=== PATIENT | male | born 1955 | race Caucasian/White ===

== ENCOUNTER 2016-12-14 05:46 | Inpatient (IN) ==
[2016-12-14] MEDS ORDERED: methylPREDNISolone 125 MG/2 ML VIAL IVP ONE (05:49)
[2016-12-14] MEDS ORDERED: Ipratropium/Albuterol Neb 3 ML IH ONE ×2 (05:51→11:01)
[2016-12-14] MEDS ORDERED: Nitroglycerin 0.4 MG TAB.SUBL SL ONE (05:52)
[2016-12-14] MEDS ORDERED: Ipratropium/Albuterol Neb 3 ML ONE ×2 (05:56→10:56)
[2016-12-14] MEDS ORDERED: Nitroglycerin 0.4 MG TAB.SUBL SL PRN (06:16)
--- NOTE | 2016-12-14 06:33 | Emergency Department Note ---
Disposition Clinical Impression: Shortness of breath, Wheezing, Viral syndrome Disposition: Still a Patient Condition: Good Referrals: NO,PCP [Primary Care Provider] - Forms: ED Satisfaction Letter SOB HPI - General Chief Complaint: ED Shortness of Breath/Dyspnea Stated Complaint: JAZZ Time Seen by Provider: 12/14/16 05:49 Source: patient, EMS Mode of arrival: EMS Limitations: no limitations Nursing Notes Reviewed: Yes Vital Signs Reviewed: Yes - History of Present Illness Patient presents emergency room for evaluation of viral prodrome that is resulted in increased work of breathing today. Patient fell he could not breathe at home and called the squad. While walking down to the area is to be taken to the hospital patient acutely had shortness of breath or wheezing. He has no history of asthma or COPD according to him. He does not use oxygen or inhalers at home. Patient denies chest pain fevers chills headache vision changes nausea vomiting or diarrhea. 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 Constitutional: Denies: fever, weakness Cardiovascular: Reports: dyspnea on exertion. Denies: chest pain, palpitations , orthopnea, edema Respiratory: Reports: cough, dyspnea, wheezes Gastrointestinal: Denies: nausea, vomiting, diarrhea Musculoskeletal: Denies: back pain, neck pain Neurological: Denies: headache Past Medical History - Past Medical History Attestation: Yes The following information was validated with the patient. Source: patient Medical history: Reports: hypertension, other Psychiatric history: Reports: no psych history - Social History Smoking Status: Current every day smoker Smokeless Tobacco Status: No Alcohol use: Reports: none Drug use: Reports: none Physical Exam - General Limitations: no limitations General appearance: alert, in distress - Chest Chest inspection: Present: normal inspection, symmetric chest wall rise. Absent : tenderness - Respiratory Respiratory exam: Present: respiratory distress, wheezes. Absent: stridor, accessory muscle use - Cardiovascular Cardiovascular exam: Present: normal rhythm, tachycardia, normal heart sounds - Abdominal Exam Abdominal exam: Present: soft, Non-Tender. Absent: tenderness, distention, guarding, rebound, rigidity, Fall's sign, Rovsing's sign, tenderness at McBurney's Point, pulsatile mass, hernia - Extremities Exam Extremities exam: Present: normal inspection, full ROM. Absent: tenderness, pedal edema, calf tenderness - Back Exam Back exam: Present: normal inspection, full ROM. Absent: tenderness - Neurological Exam Neurological exam: Present: alert, oriented X3, CN II-XII intact, normal gait - Psychiatric Psychiatric exam: Present: normal affect, normal mood - Skin Skin exam: Present: warm, dry, intact, normal color Course Course Narrative: Patient seen and examined the time of arrival. See history of present illness. 61-year-old male presents emergency room for acute onset of shortness of breath. He was at home this morning when he started to feel like he cannot breathe. He has had a viral URI like symptoms over the last 1 week. He has no history of COPD or emphysema. He does not use inhalers at home. He does smoke. Patient said that he got home from work tonight was eating at home and then started to feel like he could not breathe. He called EMS who brought emergency room. Currently he is denying chest pain fevers chills nausea vomiting or diarrhea. Denying headache or vision changes. Complaint of shortness of breath and wheezing. Patient was put on oxygen providing with 2 nebulized breathing treatments and transit through the emergency room. Physical exam shows coarse bilateral wheezing on inspiration and expiration. Trachea is midline. Lungs otherwise normal. Heart is regular but tachycardic. Abdomen soft nontender nondistended. No pulsatile areas. Patient was also extremity is without any acute difficulty. Patient is stable. Patient has what appears to be either acute exacerbation of undiagnosed COPD, reactive airway disease, or pneumonia. EKG chest x-ray troponin treatment course including steroids and albuterol be provided on BiPAP. Patient's blood pressure was elevated and transit but is 150/90 here. Patient does not have any acute signs of pulmonary edema based on my evaluation. Continue to monitor his workup and treatment course are completed. Patient disposition undetermined once symptoms have been controlled. - Reevaluation(s) Reevaluation #1: Patient's breathing is more stable on the BiPAP and breathing treatments. He does have diffuse wheezing now that his last course after treatment regimen. Patient will be signed out to the daytime physicians to complete the treatment course initially the patient either stabilizes is capable of going home or prior to admission. Detailed presentation symptoms were discussed with the oncoming physician Dr. Christie. Recommendations and concerns were discussed in detail. They will complete the patient's course of care medical management. Time: 06:42 Vital Signs Temperature 97.9 F 12/14/16 05:48 Pulse Rate 114 12/14/16 05:48 Respiratory Rate 32 12/14/16 05:48 Blood Pressure 151/102 12/14/16 05:48 O2 Sat by Pulse Oximetry 98 12/14/16 05:48 Temperature 97.9 F 12/14/16 05:48 Pulse Rate 114 12/14/16 05:48 Respiratory Rate 24 12/14/16 06:03 Blood Pressure 151/102 12/14/16 05:48 O2 Sat by Pulse Oximetry 98 12/14/16 06:03 Oxygen Delivery Oxygen Delivery Non Rebreather Mask Shortness of Breath/Dyspnea - MDM Narrative Medical decision making narrative: Acute respiratory distress, inspiratory wheezing, - Medical Records Medical records reviewed: Yes I reviewed the patient's medical records. - Lab Data Lab results reviewed: Yes I reviewed the patient's lab results. - Radiology Data Radiology results reviewed: Yes I reviewed the patient's radiology results. Chest x-ray is negative for acute infiltrative pathology reviewed by myself and confirmed by the radiologist - EKG Data EKG attestation: Yes I reviewed and interpreted this EKG. EKG shows normal: Reports: sinus rhythm Rate: Reports: tachycardia Rhythm: Reports: NSR [place]/QRS: Reports: normal Voltage: Reports: c/w atrial hypertrophy When compared to previous EKG there are: no significant changes Interpretation: Reports: no acute changes, unchanged when compared to prior tracing (date) (01/06/09) Attestation Statement - Attestation Attestation: Dr Reynoso note: Pt seen in conjunction w/ resident Dr Pulliam; please see his charting for complete documentation; I spent face to face time w/ the pt and agree w/ the pt and agree w the pt's treatment and disposition; patient has had prodromal upper respiratory symptoms for a week. 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
[2016-12-14 07:06] LABS: BUN/Creatinine Ratio 16 (6-26); Blood Urea Nitrogen 16 mg/dL (8-26); Calcium 8.2 mg/dL (8.6-10.8); Carbon Dioxide 23 mEq/L (19-29); Chloride 109 mEq/L (98-109); Glucose 133 mg/dL (70-99); Osmolality,Calculated 293 (280-300); Potassium 3.6 mEq/L (3.5-4.5); Sodium 140 mEq/L (136-145); eGFR For African Americans > 60 (> 60); eGFR For Non-African Americans > 60 (> 60)
--- NOTE | 2016-12-14 07:19 | Emergency Department Note ---
Disposition Clinical Impression: Shortness of breath, Wheezing, Viral syndrome, Hypoxia Pulmonary edema Qualifiers: Chronicity: acute Qualified Code(s): J81.0 - Acute pulmonary edema Disposition: Admitted As Inpatient Condition: Good Referrals: NO,PCP [Primary Care Provider] - Forms: ED Satisfaction Letter Time of Disposition: 08:30 SOB HPI - General Chief Complaint: ED Shortness of Breath/Dyspnea Stated Complaint: JAZZ Time Seen by Provider: 12/14/16 05:49 Source: patient, EMS Mode of arrival: EMS Limitations: no limitations Nursing Notes Reviewed: Yes Vital Signs Reviewed: Yes - History of Present Illness Patient is a 61-year-old male with past medical history of hypertension. 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 Reynoso and Dr. Pulliam. Patient has had URI symptoms of runny nose and cough for the past week. Last night, he began having sudden onset shortness of breath. Patient denies any chest pain during this episode. He denies any history of asthma, COPD, he has never had anything like this in the past. Denies any fevers, nausea, vomiting, abdominal pain, headache, vision changes, numbness, tingling, weakness. Patient states that when he was picked up by EMS, he was satting in the upper 80s to low 90s without oxygen. He is placed on oxygen and his saturation went up to 95%. Severity: moderate Worsens with: lying flat, exertion Associated symptoms: Reports: cough, wheezing Treatment prior to arrival: oxygen, bronchodilator - Related Data Previous Rx's Medication Instructions Recorded MethylPREDNISolone [Medrol] 4 mg PO TAPER #21 tablet 09/07/16 Allergies Allergy/AdvReac Type Severity Reaction Status Date / Time No Known Allergies Allergy Verified 09/07/16 12:05 Constitutional: Denies: fever, weakness Cardiovascular: Reports: dyspnea on exertion. Denies: chest pain, palpitations , orthopnea, edema Respiratory: Reports: cough, dyspnea, wheezes Gastrointestinal: Denies: nausea, vomiting, diarrhea Musculoskeletal: Denies: back pain, neck pain Neurological: Denies: headache Past Medical History - Past Medical History Attestation: Yes The following information was validated with the patient. Medical history: Reports: hypertension, other Psychiatric history: Reports: no psych history - Social History Smoking Status: Current every day smoker Smokeless Tobacco Status: No Alcohol use: Reports: none Drug use: Reports: none Physical Exam - General Limitations: no limitations General appearance: alert, in distress - Head Head exam: atraumatic, normocephalic, normal inspection - Eye Eye exam: Present: normal appearance, PERRL, EOMI - ENT ENT exam: normal exam, mucous membranes moist - Neck Neck exam: Present: normal inspection, full ROM, trachea midline - Respiratory Respiratory exam: Present: wheezes (Moderate wheezes throughout, mild crackles in bilateral lower lobes.) - Cardiovascular Cardiovascular exam: Present: normal rhythm, tachycardia, normal heart sounds - Abdominal Exam Abdominal exam: Present: soft, Non-Tender. Absent: tenderness, distention, guarding, rebound, rigidity - Extremities Exam Extremities exam: Present: normal inspection, other (moves all extremities spontaneously). Absent: tenderness, pedal edema - Neurological Exam Neurological exam: Present: alert, oriented X3 - Psychiatric Psychiatric exam: Present: normal affect, normal mood - Skin Skin exam: Present: warm, dry, intact, normal color Course Course Narrative: Blood pressure is now 150s over 80s. Patient was given 2 albuterol treatments by EMS on the way in, is also given 3 duonebs by DVT. He was also given Solu- Medrol 125 mg. Patient is currently on BiPAP. Patient states that his breathing has significantly improved, however, he still has moderate wheezes throughout his lung calle. Chest x-ray shows pulmonary edema. He states he has no known history of CHF, CAD, stents, [place]. BNP elevated at 256. The rest of the BMP is not concerning. Currently waiting on CBC, troponin level. EKG shows sinus tachycardia with no acute ST elevation or depression. 08:25 Patient reassessed. He is resting comfortably on BIPAP. CXR showed pulm edema, elevated BNP at 256 (no previous values for comparison). Will start nitro drip at 30mcg. Discussed admission with patient, and he was agreeable. Will admit patient for further workup of suspected new onset CHF, pulm edema, hypoxia. 08:[address] Lawrence. He has accepted for admission but did not want nitro drip started. He wanted lasix ordered but Dr. Christie did not recommend this at this time. Will give nitro paste and admit. Chest X-Ray 12/14/16 05:49 IMPRESSION: Pulmonary edema. D/ / Derrick Gonzalez MD / Derrick Gonzalez MD Interpreting Provider: Derrick Gonzalez MD Vital Signs Temperature 97.9 F 12/14/16 05:48 Pulse Rate 114 12/14/16 05:48 Respiratory Rate 32 12/14/16 05:48 Blood Pressure 151/102 12/14/16 05:48 O2 Sat by Pulse Oximetry 98 12/14/16 05:48 Temperature 97.9 F 12/14/16 05:48 Pulse Rate 92 12/14/16 07:59 Respiratory Rate 20 12/14/16 07:59 Blood Pressure 130/91 12/14/16 07:59 O2 Sat by Pulse Oximetry 100 12/14/16 07:59 Oxygen Delivery Oxygen Delivery Bipap Shortness of Breath/Dyspnea - MDM Narrative Medical decision making narrative: No Pmhx of CHF. on BIPAP. CXR showed pulm edema, elevated BNP at 256 (no previous values for comparison). Nitro paste started. Discussed admission with patient, and he was agreeable. Will admit patient for further workup of suspected new onset CHF, pulm edema, hypoxia. - Medical Records Medical records reviewed: Yes I reviewed the patient's medical records. - Lab Data Lab results reviewed: Yes I reviewed the patient's lab results. Result diagrams: 12/14/16 06:47 12/14/16 06:47 Lab Results 12/14/16 12/14/16 12/14/16 Range/Units 06:47 06:47 06:47 WBC 8.7 (4.3-11.1) K/mcL RBC 5.01 (4.19-5.50) M/mcL Hgb 14.8 (12.9-16.9) g/dL Hct 45.4 (37.5-50.1) % MCV 90.6 (83.0-100.0) fL MCH 29.5 (28.0-33.3) pg MCHC 32.6 (31.6-35.5) g/dL RDW 14.5 (11.5-14.5) % Plt Count 186 (140-400) K/mcL MPV 11.0 (9.4-12.4) fL Immature Gran % 0.8 (0-4) % Seg Neutrophils % 76.4 % Lymphocytes % 11.8 % Monocytes % 9.1 % Eosinophils % 1.4 % Basophils % 0.5 % Neutrophils # 6.7 (1.6-8.9) K/mcL Lymphocytes # 1.0 (0.6-4.6) K/mcL Monocytes # 0.8 (0.0-1.3) K/mcL Eosinophils # 0.1 (0.0-0.6) K/mcL Basophils # 0.0 (0.0-0.2) K/mcL Sodium 140 (136-145) mEq/L Potassium 3.6 (3.5-4.5) mEq/L Chloride 109 (98-109) mEq/L Carbon Dioxide 23 (19-29) mEq/L BUN 16 (8-26) mg/dL Creatinine 1.02 (0.72-1.25) mg/dL Est GFR ( Amer) > 60 (> 60) Est GFR (Non-Af Amer) > 60 (> 60) BUN/Creatinine Ratio 16 (6-26) Glucose 133 H (70-99) mg/dL Calculated Osmolality 293 (280-300) Calcium 8.2 L (8.6-10.8) mg/dL Troponin I 0.02 (0-0.03) ng/mL B-Natriuretic Peptide (0-100) pg/mL 12/14/16 Range/Units 06:47 WBC (4.3-11.1) K/mcL RBC (4.19-5.50) M/mcL Hgb (12.9-16.9) g/dL Hct (37.5-50.1) % MCV (83.0-100.0) fL MCH (28.0-33.3) pg MCHC (31.6-35.5) g/dL RDW (11.5-14.5) % Plt Count (140-400) K/mcL MPV (9.4-12.4) fL Immature Gran % (0-4) % Seg Neutrophils % % Lymphocytes % % Monocytes % % Eosinophils % % Basophils % % Neutrophils # (1.6-8.9) K/mcL Lymphocytes # (0.6-4.6) K/mcL Monocytes # (0.0-1.3) K/mcL Eosinophils # (0.0-0.6) K/mcL Basophils # (0.0-0.2) K/mcL Sodium (136-145) mEq/L Potassium (3.5-4.5) mEq/L Chloride (98-109) mEq/L Carbon Dioxide (19-29) mEq/L BUN (8-26) mg/dL Creatinine (0.72-1.25) mg/dL Est GFR ( Amer) (> 60) Est GFR (Non-Af Amer) (> 60) BUN/Creatinine Ratio (6-26) Glucose (70-99) mg/dL Calculated Osmolality (280-300) Calcium (8.6-10.8) mg/dL Troponin I (0-0.03) ng/mL B-Natriuretic Peptide 256 H (0-100) pg/mL - Radiology Data Radiology results reviewed: Yes I reviewed the patient's radiology results. Chest X-Ray 12/14/16 05:49 IMPRESSION: Pulmonary edema. D/ / Derrick Gonzalez MD / Derrick Gonzalez MD Interpreting Provider: Derrick Gonzalez MD - EKG Data EKG attestation: Yes I reviewed and interpreted this EKG. EKG results narrative: 12/14/2016 05:53 Sinus tachycardia, rate 113, QTC 419, QRS 106. Left axis deviation. No acute ST elevation or depression. No acute changes from previous EKG on 01/06/2009 [facility] - [facility] Situation: Demographics, MOA Background: Presenting Complaint, Relevant PMH, Meds, & Allergies Assessment: Vital Signs, Course and respsone to treatment, Exam Concerns, Patient/Family Expectation, Pertinant Lab Results, Outstanding Labs Recommendation: Barrier(s) to disposition, Recommendation based on pending studies, treatments, or consults [facility] Report Given to: Dr. Melinda Ron Repor Time: 08:30 Attestation Statement - Attestation Attestation: I examined this patient and my medical decision-making was reviewed with the Resident Physician. I agree with the documented findings, disposition and treatment plan as described except to the extent set forth below. Initial assessment by overnight team was at the patient likely had a COPD exacerbation. However, diagnostics suggest new onset pulmonary edema. Patient is called what this point on BiPAP. We had ordered low-dose IV nitroglycerin for preload reduction, but the hospitalist did not want this started. Nitroglycerin paste was placed instead. He has given an order for Lasix, although, as we discussed, in my judgment the patient does not seem to be whole- body volume overloaded.
[2016-12-14 07:40] LABS: Basophils % 0.5 %; Eosinophils # 0.1 K/mcL (0.0-0.6); Eosinophils % 1.4 %; Hematocrit 45.4 % (37.5-50.1); Hemoglobin 14.8 g/dL (12.9-16.9); Immature Granulocytes % 0.8 % (0-4); Lymphocytes % 11.8 %; Mean Corpuscular HGB Conc 32.6 g/dL (31.6-35.5); Mean Corpuscular Hemoglobin 29.5 pg (28.0-33.3); Mean Corpuscular Volume 90.6 fL (83.0-100.0); Monocytes # 0.8 K/mcL (0.0-1.3); Monocytes % 9.1 %; Neutrophils # 6.7 K/mcL (1.6-8.9); Platelet Count 186 K/mcL (140-400); Red Blood Count 5.01 M/mcL (4.19-5.50); Red Cell Distribution Width 14.5 % (11.5-14.5); Segmented Neutrophils % 76.4 %
[2016-12-14] MEDS ORDERED: Azithromycin 500 MG in D5% in Water 250 ML IVPB ONE (08:43)
[2016-12-14] MEDS ORDERED: Furosemide 40 MG/4 ML VIAL IVP ONE (09:11)
[2016-12-14] MEDS ORDERED: *HR* HYDROcodone/Acet 5/325 mg TABLET PO PRN (12:35)
[2016-12-14] MEDS ORDERED: Naloxone 0.4 MG/ML INJ IVP PRN (12:35)
[2016-12-14] MEDS ORDERED: Acetaminophen 325 MG TABLET PO PRN (12:35)
[2016-12-14] MEDS ORDERED: Ondansetron 4 MG/2 ML VIAL IVP PRN (12:35)
[2016-12-14 14:41] LABS: Thyroid Stimulating Hormone 1.061 mcIU/mL (0.350-4.840)
[2016-12-14] MEDS: Albuterol 2.5 MG/3 ML NEBULIZER IH SCH (16:24)
--- NOTE | 2016-12-14 17:23 | Internal Med History&Physical ---
Date of Encounter: 12/14/16 Time of Encounter: 10:10 Internal Medicine - H&P: HPI Chief complaint: Shortness of breath x 1 day, cough x 7 days Admitted From: Emergency Dept Plans for Post Hospital Care: Home History of present illness: Mr. Champion is a 61 year old male with medical history significant for HTN ( loss to follow-up) brought in by EMS, he presents with difficulty breathing x 1 day. There as a prodrome of coughing the past week, no chest pain,no fever, chills or rigors, no nausea, vomiting or diarrhea, no. No sick contacts. He does not have a history of asthma/copd, he is not oxygen-dependent, he smokes tobacco. No history of use of bronchodilators. He was hypoxic in transit, as well as when he arrived the ED (82-89%), BiPAP provided, he received 2 rounds of Duonebs with improvement in oxygenation. He reports SOB, GUEVARA and PND, the past day. These are very new symptoms. No leg swelling. Cough is dry, intermittently produces clear mucous. He is FULL CODE as per discussion. He nominates his mother (Toshia Calderón, ) as his NOK/POA. Family history: He reports no family hx ROS: A 10-point ROS was performed, positives and negative systm-symptoms are mentioned above, items not mentioned are cassumed negative unless otherwise stated. Vital Signs Temperature 97.9 F 12/14/16 05:48 Pulse Rate 114 12/14/16 05:48 Respiratory Rate 32 12/14/16 05:48 Blood Pressure 151/102 12/14/16 05:48 O2 Sat by Pulse Oximetry 98 12/14/16 05:48 Temperature 97.9 F 12/14/16 05:48 Pulse Rate 114 12/14/16 05:48 Respiratory Rate 24 12/14/16 06:03 Blood Pressure 151/102 12/14/16 05:48 O2 Sat by Pulse Oximetry 98 12/14/16 06:03 Not in distress, not ill, non-toxic looking, Not pale, anicteric, afebrile, acyanotic. Moist mucosa. HEENT: No JVD, no cervical lymphadenopathy, Chest : Widespread wheezing, especially in the lung bases. Heart: RRR, HS1/2, no m/r/g. 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 Skin: No active skin lesion Extremities: No pedal edema, normal pedal pulses, no calf tenderness Lab Results 12/14/16 12/14/16 12/14/16 Range/Units 06:47 06:47 06:47 WBC 8.7 (4.3-11.1) K/mcL RBC 5.01 (4.19-5.50) M/mcL Hgb 14.8 (12.9-16.9) g/dL Hct 45.4 (37.5-50.1) % MCV 90.6 (83.0-100.0) fL MCH 29.5 (28.0-33.3) pg MCHC 32.6 (31.6-35.5) g/dL RDW 14.5 (11.5-14.5) % Plt Count 186 (140-400) K/mcL MPV 11.0 (9.4-12.4) fL Immature Gran % 0.8 (0-4) % Seg Neutrophils % 76.4 % Lymphocytes % 11.8 % Monocytes % 9.1 % Eosinophils % 1.4 % Basophils % 0.5 % Neutrophils # 6.7 (1.6-8.9) K/mcL Lymphocytes # 1.0 (0.6-4.6) K/mcL Monocytes # 0.8 (0.0-1.3) K/mcL Eosinophils # 0.1 (0.0-0.6) K/mcL Basophils # 0.0 (0.0-0.2) K/mcL Sodium 140 (136-145) mEq/L Potassium 3.6 (3.5-4.5) mEq/L Chloride 109 (98-109) mEq/L Carbon Dioxide 23 (19-29) mEq/L BUN 16 (8-26) mg/dL Creatinine 1.02 (0.72-1.25) mg/dL Est GFR ( Amer) > 60 (> 60) Est GFR (Non-Af Amer) > 60 (> 60) BUN/Creatinine Ratio 16 (6-26) Glucose 133 H (70-99) mg/dL Calculated Osmolality 293 (280-300) Calcium 8.2 L (8.6-10.8) mg/dL Troponin I 0.02 (0-0.03) ng/mL B-Natriuretic Peptide (0-100) pg/mL 12/14/16 Range/Units 06:47 WBC (4.3-11.1) K/mcL RBC (4.19-5.50) M/mcL Hgb (12.9-16.9) g/dL Hct (37.5-50.1) % MCV (83.0-100.0) fL MCH (28.0-33.3) pg MCHC (31.6-35.5) g/dL RDW (11.5-14.5) % Plt Count (140-400) K/mcL MPV (9.4-12.4) fL Immature Gran % (0-4) % Seg Neutrophils % % Lymphocytes % % Monocytes % % Eosinophils % % Basophils % % Neutrophils # (1.6-8.9) K/mcL Lymphocytes # (0.6-4.6) K/mcL Monocytes # (0.0-1.3) K/mcL Eosinophils # (0.0-0.6) K/mcL Basophils # (0.0-0.2) K/mcL Sodium (136-145) mEq/L Potassium (3.5-4.5) mEq/L Chloride (98-109) mEq/L Carbon Dioxide (19-29) mEq/L BUN (8-26) mg/dL Creatinine (0.72-1.25) mg/dL Est GFR ( Amer) (> 60) Est GFR (Non-Af Amer) (> 60) BUN/Creatinine Ratio (6-26) Glucose (70-99) mg/dL Calculated Osmolality (280-300) Calcium (8.6-10.8) mg/dL Troponin I (0-0.03) ng/mL B-Natriuretic Peptide 256 H (0-100) pg/mL Chest X-Ray 12/14/16 05:49 IMPRESSION: Pulmonary edema, no focal infiltrate EKG: ST @ 113, LAD, no acute ST-T segment or T wave anomaly. IMP SOB Pulmonary edema Sinus tachycardia Hypertension PLAN Admit to telemetry Respiratory viral panel CRP Oxygen supplementation IV Furosemide 40 mg Q12H Zithromax 500mg po QD cYCLE troponin, serial EKG 2D ECHO EVALUATE CARDIOVASCULAR risk factors. No risk for DVT I discussed my findings and assessment with the patient, he verbalized understanding and is agreeable to admission. He admitted for evaluation of SOB and acute pulmonary edema. Past Med Surg Social Fam HX - Past Medical History Medical history: hypertension, other Psychiatric history: no psych history - Social History Smoking Status: Current every day smoker Smokeless Tobacco Status: No Alcohol use: none Drug use: none - Family History Mother History Unknown: Yes Internal Medicine - H&P: Meds No Known Home Drugs 12/14/16 [History] Allergies No Known Allergies Allergy (Verified 09/07/16 12:05) All Systems PM: A 10-system review of systems was performed and is negative for pertinent findings except as documented above in the HPI. - Constitutional Vitals: Temp Pulse Resp BP Pulse Ox 98.1 F 92 20 137/86 95 12/14/16 16:32 12/14/16 16:32 12/14/16 16:32 12/14/16 16:32 12/14/16 16:32 Internal Med - H&P Results - Labs CBC & Chem 7: 12/14/16 06:47 12/14/16 06:47 Labs: Cardiac Enzymes 12/14/16 Range/Units 13:57 Troponin I 0.02 (0-0.03) ng/mL
[2016-12-14] MEDS: Furosemide 40 MG/4 ML VIAL IVP SCH (22:59)
[2016-12-15] MEDS: Albuterol 2.5 MG/3 ML NEBULIZER IH SCH ×4 (00:09→16:19)
[2016-12-15] MEDS ORDERED: *HR* Enoxaparin 40 MG/0.4 ML SYRINGE SQ SCH (06:00)
[2016-12-15 06:52] LABS: Basophils % 0.1 %; Eosinophils % 0.1 %; Hematocrit 45.8 % (37.5-50.1); Hemoglobin 15.3 g/dL (12.9-16.9); Immature Granulocytes % 0.4 % (0-4); Lymphocytes # 1.3 K/mcL (0.6-4.6); Lymphocytes % 9.9 %; Mean Corpuscular HGB Conc 33.4 g/dL (31.6-35.5); Mean Corpuscular Hemoglobin 30.2 pg (28.0-33.3); Mean Corpuscular Volume 90.3 fL (83.0-100.0); Mean Platelet Volume 10.8 fL (9.4-12.4); Monocytes # 1.5 K/mcL (0.0-1.3); Monocytes % 11.3 %; Neutrophils # 10.5 K/mcL (1.6-8.9); Platelet Count 216 K/mcL (140-400); Red Blood Count 5.07 M/mcL (4.19-5.50); Red Cell Distribution Width 14.5 % (11.5-14.5); Segmented Neutrophils % 78.2 %
[2016-12-15 07:03] LABS: BUN/Creatinine Ratio 18 (6-26); Blood Urea Nitrogen 22 mg/dL (8-26); Calcium 9.1 mg/dL (8.6-10.8); Carbon Dioxide 23 mEq/L (19-29); Chloride 107 mEq/L (98-109); Chol/HDL Ratio 3.5 (0-4.9); Cholesterol 152 mg/dL (< 200); Glucose 102 mg/dL (70-99); HDL Cholesterol 43 mg/dL (40-59); LDL Cholesterol,Calculated 86 mg/dL (0-99); Osmolality,Calculated 292 (280-300); Potassium 4.2 mEq/L (3.5-4.5); Sodium 139 mEq/L (136-145); Triglycerides 116 mg/dL (< 150); eGFR For African Americans > 60 (> 60); eGFR For Non-African Americans > 60 (> 60)
[2016-12-15] MEDS ORDERED: Pantoprazole 40 MG VIAL IVP SCH (09:00)
[2016-12-15] MEDS ORDERED: Azithromycin 250 MG TABLET PO SCH (09:00)
[2016-12-15] MEDS: Furosemide 40 MG/4 ML VIAL IVP SCH (09:10)
--- NOTE | 2016-12-15 10:42 | Cardiology Consult Note ---
Date of Encounter: 12/15/16 Time of Encounter: 10:39 Assessment and Plan (1) Pulmonary edema Current Visit: Yes Status: Acute BNP was minimally elevated - which makes me think volume overload is not likely culprit. More Likely sxs are from a Pulm source. Echo pending. Discussed options for additional work up. Stress test offered etc. If Echo is normal (normal EF - no severe valve disease - OK to home - close outpt CV followup) Return is sxs recur. Qualifiers: Chronicity: acute Qualified Code(s): J81.0 - Acute pulmonary edema (2) Shortness of breath Current Visit: Yes Status: Acute Suspect Pulm more than Cardiac. BNP is minimally elevated - no other changes to indicate Cardiac is primary culprit. Needs to quit smoking --counselled in detail (>3 minutes) on the hazards tobacco use poses to the CV and Pulm systems. Discussion w patient/family: The assessment and plan as outlined above was discussed with the patient and/or family members who expressed understanding and agreement. All questions were answered. Thank you for involving us in the care of your patient. Please call with any questions. History of Present Illness Consult date: 12/15/16 Consult reason: ? CHF Chief complaint: SOB History of present illness: Mr. Champion is a 61 year old male with no known CAD, but with a few CV risk factors (tobacco use, HTN, family h/o CAD) presents with fairly sudden onset SOB with cough. Reports he was in usual state of health, after eating a salty meal (soy sauce) he become SOB and was unable to walk. This was a fairly dramatic change. Sxs persisted and finally EMS was called. He was found to be hypoxic on RA. Work up in the ER was notable for a slight increase in BNP and possible volume overload on CXR. Patient denies any chest pain/pressur/tightness with the above. Denies any recent CV sxs. He states he has been a smoker for some time. Past Med Surg Social Fam HX - Past Medical History Medical history: hypertension, other Psychiatric history: no psych history - Social History Smoking Status: Current every day smoker Smokeless Tobacco Status: No Alcohol use: none Drug use: none - Family History Mother History Unknown: Yes Medications and Allergies No Known Home Drugs 12/14/16 [History] Allergies No Known Allergies Allergy (Verified 09/07/16 12:05) All Systems Review: A 10-system review of systems was performed and is negative for pertinent findings except as documented above in the HPI. Review of Systems: Except as detailed below and in the HPI - all other reviews are negative. - Cardiovascular Cardiovascular: dyspnea at rest, dyspnea on exertion, no chest pain at rest, no chest pain with exertion, no diaphoresis, no leg edema, no palpitations, no syncope - Respiratory Respiratory: cough, dyspnea - Gastrointestinal Gastrointestinal: no abdominal pain Physical Examination Vital Signs, Last 4 Hours Temp Pulse Resp BP Pulse Ox 12/15/16 10:36 98 F 77 16 150/90 94 L 12/15/16 10:29 16 95 12/15/16 09:14 95 12/15/16 06:52 98.4 F 84 16 143/84 94 L General: Conversant, No Apparent Distress HEENT: Atraumatic, Mucus Membranes Moist Neck: No JVD, Normal carotid pulses Cardiac: Reg Rate and Rhythm, Normal S1 and S2 Lungs: Normal Breath Sounds, Other (fair air movement) Neuro: Alert and responsive, No focal deficits noted Abdomen: Soft, Non-Tender Skin: No rashes noted on visualized skin Musculoskeletal: No Chest Wall Tenderness Extremities: No Clubbing, No Edema Results 12/15/16 06:43 12/15/16 06:43 Lab Results 12/14/16 12/14/16 12/14/16 13:57 13:57 18:49 WBC Hgb Hct Plt Count Sodium Potassium Chloride Carbon Dioxide BUN Creatinine Glucose Calcium Magnesium Troponin I 0.02 0.02 TSH 1.061 12/15/16 12/15/16 06:43 06:43 WBC 13.4 H D Hgb 15.3 Hct 45.8 Plt Count 216 Sodium 139 Potassium 4.2 Chloride 107 Carbon Dioxide 23 BUN 22 Creatinine 1.21 Glucose 102 H Calcium 9.1 Magnesium 2.0 Troponin I TSH - Imaging and Cardiology Echo: pending - EKG Interpretation EKG results cardiology: personally reviewed, no diagnostic ischemia Consult Discharge Plan - Plan Referrals: NO,PCP [Primary Care Provider] -
--- NOTE | 2016-12-15 12:44 | ECHO - Doppler Report ---
Echocardiogram Name: Edgar Champion Date of Study: 12/14/2016 Date: 1955 Ht: 62.0 in Medical Record#: [id number] Age: 61 Wt: 223.0 lb Gender: Male BSA: 2 Order #: [id number] Location: [facility] Room #: 2A37 Reading Physician: Rupinder Barrera DO Permit Specialist: Dania Santiago Ordering Physician: Noreen Kaplan CNP Primary Physician: None Indications: Congestive heart failure Impressions: LVEF 50%. Low normal LV systolic function with regional variations. There is evidence of mild diastolic dysfunction of the left ventricle. Normal right ventricular size and function. Severely enlarged left atrial size. Mild mitral regurgitation. No pulmonary hypertension. No prior study for comparison. Left Ventricular Wall Motion: Rest Echo Findings The mid inferior and basal inferior herrera were hypokinetic. All other wall segments showed normal motion. Findings: Study Quality * Technically adequate exam. ECG Findings * Normal sinus rhythm. Left Ventricle * Mild left ventricular diastolic dysfunction. * LVEF 50%. * Normal LV size and wall thickening. Aortic Valve * No aortic regurgitation. * Trileaflet aortic valve. * Normal aortic valve structure. * No aortic stenosis. Mitral Valve * No mitral stenosis. * Mildly calcified mitral valve leaflets. * Mild mitral regurgitation. Tricuspid Valve * Tricuspid valve not well visualized. * Trace tricuspid regurgitation. Pulmonic Valve * Pulmonic valve is not well visualized. * No pulmonic stenosis. * No pulmonic regurgitation. Pulmonary Artery * Pulmonary artery not well visualized. Right Ventricle * Normal right ventricular structure and function. Right Atrium * Normal right atrial size. Left Atrium * Severely dilated left atrium. Interatrial Septum * No evidence of PFO by color Doppler. IVC * The IVC is not well evaluated. Pericardium * There is no pericardial effusion present. Aorta * Normally sized aortic root. History Hypertension History of Smoking Years 1 Packs 0.5 Family History of CAD Measurements: BP: 135/ 91 2D Normal Values RVIDd: 3.10 cm <2.7 cm IVSd: 1.10 cm 0.6 - 1.0 cm LVIDd: 5.40 cm 3.7 - 5.6 cm LVPWd: 1.20 cm 0.6 - 1.1 cm LVIDs: 3.80 cm 1.5 - 3.6 cm AO: 2.80 cm < 4.0 cm LA: 4.80 cm 2.0 - 4.0cm %FS: 29.60 cm >25 % LVOT Diam: 2.00 cm LA volume: 126 Mitral Valve Peak E:.98 m/sec Peak A:.71 m/sec E/A Ratio:1.4 Peak E' Lat Jace:8.48 cm/s Peak E' Med Jace:5.75 cm/s E/E' Lat Ratio:11.6 E/E' Med Ratio:17.1 Updated by Rupinder Barrera on 12/15/2016 12:37:01 PM electronically signed on 12/15/2016 12:38:36 PM with status of Final Wall Motion Jimenez: 1=Normal, 2=Hypokinesis, 3=Akinesis, 4=Dyskinesis, 5=Aneurysmal, 6=Hyperkinetic, X=Not Visualized (Blank)=Missing
--- NOTE | 2016-12-15 13:33 | Event Note ---
Date of Encounter: 12/15/16 Time of Encounter: 13:29 - Cardiology Event Note Echo resulted--EF low normal 50%, mild diastolic dysfunction, severely dilated left atrium, mild MR. Cardiology will sign off. Reconsult PRN. Recommend outpt follow-up in 1-2 weeks with cardiology for re-evaluation/possible stress test as outpt if indicated. No evidence of any arrhythmias on tele.
[2016-12-15 16:57] VITALS: BP 148/92
--- NOTE | 2016-12-15 17:00 | Discharge Summary ---
Date of Encounter: 12/15/16 Time of Encounter: 16:58 - Discharge Diagnosis (1) Pulmonary edema Priority: Primary Status: Acute Qualifiers: Chronicity: acute Qualified Code(s): J81.0 - Acute pulmonary edema (2) Shortness of breath Priority: Primary Status: Acute (3) Viral syndrome Priority: Primary Status: Acute - Discharge Medications Prescriptions: Furosemide [Lasix] 10 mg PO DAILY #10 tablet Home Medications: Furosemide [Lasix] 10 mg PO DAILY #10 tablet 12/15/16 [Rx] Allergies/Adverse Reactions: Allergies No Known Allergies Allergy (Verified 09/07/16 12:05) Procedures/tests Complete & Pending: Procedures Performed prior 72 hours Category Date Time Status EV echocardiogram Routine Y 12/14/16 12:43 Completed Date of admission: 12/14/16 12:35 Primary care physician: PCP NO Consults: 12/14/16 17:20 Consult to Cardiology [CONS] Routine Comment: Consulting Provider: Cardiology Carla Reason for Consult: SOB, FINDING OF PULMONARY SALINAS. No prior cardiac history. Call Completed: No Discharging clinician: Latanya Mccray Anticipated date of discharge: 12/15/16 - Patient Status Disposition: Home, Self-Care Condition: Fair Functional capacity at discharge: independent ambulation Overall status at discharge: patient is back to baseline - Discharge Instructions Instructions: Furosemide (By mouth), Pulmonary Edema (DC) Follow Up With: [facility],PCP [Primary Care Provider] - Osmar Narvaez MD [Partnered Physician] - - Diet and Activity Activity: resume usual activities as tolerated Diet: advance to your usual diet Interval History: Mr. Champion is a 61 year old male with medical history significant for HTN ( loss to follow-up) brought in by EMS, he presents with difficulty breathing x 1 day. There as a prodrome of coughing the past week, no chest pain,no fever, chills or rigors, no nausea, vomiting or diarrhea, no. No sick contacts. He does not have a history of asthma/copd, he is not oxygen-dependent, he smokes tobacco. No history of use of bronchodilators. He was hypoxic in transit, as well as when he arrived the ED (82-89%), BiPAP provided, he received 2 rounds of Duonebs with improvement in oxygenation. He reports SOB, GUEVARA and PND, the past day. These are very new symptoms. No leg swelling. Cough is dry, intermittently produces clear mucous. he was admitted for further management. CXR done at ED showed pulmonary edema. He was started on IV Lasix, echo was done and cardiology was consulted. Echo showed EF low normal 50%, mild diastolic dysfunction, severely dilated left atrium, mild MR. he has remained asymptomatic today, repeat CXR shows significant improvement of the pulmonary edema. Discussed options for additional work up. Stress test offered etc. he was advised to quit smoking and will give him referral to f/u with cardio as OP. he is being dc in stable condition. will dc him with 10 mg of lasix for 10 days. Hospital course: Mr. Champion is a 61 year old male Time spent discussing smoking cessation with patient: more than 10 minutes - Time Spent with Patient Total time spent providing and/or coordinating discharge services: Greater than 30 minutes - Constitutional Vitals: Temp Pulse Resp BP Pulse Ox 98.2 F 91 16 148/92 94 L 12/15/16 16:55 12/15/16 16:55 12/15/16 16:55 12/15/16 16:55 12/15/16 16:55 General appearance: Present: A&O X 3, no acute distress Exam: General: Conversant, No Apparent Distress HEENT: Atraumatic, Mucus Membranes Moist Neck: No JVD, Normal carotid pulses Cardiac: Reg Rate and Rhythm, Normal S1 and S2 Lungs: Normal Breath Sounds, Other (fair air movement) Neuro: Alert and responsive, No focal deficits noted Abdomen: Soft, Non-Tender Skin: No rashes noted on visualized skin Musculoskeletal: No Chest Wall Tenderness Extremities: No Clubbing, No Edema
[2016-12-15] MEDS ORDERED: Furosemide 20 MG TABLET PO SCH (21:00)
--- NOTE | 2016-12-16 14:06 | Electrocardiograph Report ---
[place] ev-social Test Date: 2016-12-14 Pat Name: Edgar Champion Department: 105 Room: 2A37 Gender: M Sod Stripper: : 1955 Requested By: Damon Pulliam Order Number: [id number] Reading MD: Julien Mccartney DO Measurements Intervals [place] Rate: 113 P: 58 UT: 124 QRS: -15 QRSD: 106 T: 61 QT: 352 QTc: 419 Interpretive Statements SINUS TACHYCARDIA LEFT ATRIAL ENLARGEMENT [-0.15mV P WAVE IN V1/V2] NONSPECIFIC T-WAVE ABNORMALITY Electronically Signed On 12-16-2016 14:04:09 EST by Julien Mccartney DO
== END 2016-12-15 17:51 | disposition home or self-care (01) | DRG 189 ==
LOC: EMEROO 05:46 → 2ANU 05:46
PROVIDERS: ADMIT Family Medicine; ATTEND Internal Medicine Endocrinology, Diabetes & Metabolism

== ENCOUNTER 2017-01-26 08:54 | Inpatient (IN) ==
--- NOTE | 2017-01-26 09:11 | Emergency Department Note ---
Disposition Clinical Impression: Congestive heart failure Qualifiers: Congestive heart failure type: unspecified congestive heart failure type Congestive heart failure chronicity: unspecified congestive heart failure chronicity Qualified Code(s): I50.9 - Heart failure, unspecified Pulmonary edema Qualifiers: Chronicity: acute Qualified Code(s): J81.0 - Acute pulmonary edema Disposition: Admitted As Inpatient Condition: Fair Referrals: NO,PCP [Primary Care Provider] - Forms: ED Satisfaction Letter Time of Disposition: 11:56 SOB HPI - General Chief Complaint: ED Shortness of Breath/Dyspnea Stated Complaint: JAZZ Time Seen by Provider: 01/26/17 08:59 Source: patient Limitations: no limitations Nursing Notes Reviewed: Yes Vital Signs Reviewed: Yes - History of Present Illness 61-year-old alert and oriented male presents to the emergency department for evaluation of a sudden onset of difficulty in breathing. The patient states that he was sitting on his couch, watching TV, when symptoms began. He states that he has had a similar episode of this in the past, and was evaluated here in the emergency department, however there was no conclusion made as to why he was dyspneic. He does admit to new bilateral lower extremity edema, as well as being more short of breath while supine. He states that he has had to sleep on additional pillows propped under his head to help with his symptoms. He is noted to be hypertensive upon triage. He states that his only medical history is hypertension, however he has not taken his blood pressure medications in over 2 years. He states that he does not currently have a primary care provider either. He denies any cough, fever, chest pain, or abdominal pain. He states that his shortness of breath is made worse with exertion. Pt Subjective Complaint: shortness of breath Onset (ago): hour(s) (2 hours) Severity: moderate Improves with: nothing Worsens with: nothing Associated symptoms: Reports: orthopnea Cough present: No - Related Data Previous Rx's Medication Instructions Recorded Furosemide [Lasix] 10 mg PO DAILY #10 tablet 12/15/16 Allergies Allergy/AdvReac Type Severity Reaction Status Date / Time No Known Allergies Allergy Verified 01/26/17 08:55 All systems ED: reviewed and negative except as stated. Constitutional: Denies: fever, chills, weakness, weight change Eyes: Denies: eye pain, eye discharge, vision change ENT ED: Denies: ear pain, throat pain, dental pain, hearing loss, epistaxis, congestion, dysphagia Cardiovascular: Reports: as per HPI, dyspnea on exertion, orthopnea. Denies: chest pain, palpitations, edema, syncope Respiratory: Reports: as per HPI, dyspnea. Denies: cough, wheezes, hemoptysis, stridor Gastrointestinal: Denies: abdominal pain, nausea, vomiting, diarrhea, constipation, hematemesis, melena, hematochezia Genitourinary: Denies: urgency, dysuria, frequency, hematuria Musculoskeletal: Denies: back pain, neck pain, arthralgia, myalgia Integumentary: Denies: rash, abrasion, lesions Neurological: Denies: headache, weakness, numbness, paresthesias, confusion, abnormal gait, vertigo Psychiatric: Denies: anxiety, depression, suicidal thoughts, homicidal thoughts , auditory hallucinations, visual hallucinations Endocrine: Denies: fatigue Hematological/Lymphatic: Denies: easy bleeding, easy bruising Allergic/Immunologic: Denies: facial swelling, urticaria Past Medical History - Past Medical History Attestation: Yes The following information was validated with the patient. Source: patient Medical history: Reports: hypertension, other Psychiatric history: Reports: no psych history - Social History Smoking Status: Current every day smoker Smokeless Tobacco Status: No Alcohol use: Reports: none Drug use: Reports: none Physical Exam - General Limitations: no limitations General appearance: alert, in no apparent distress - Head Head exam: atraumatic, normocephalic, normal inspection - Eye Eye exam: Present: normal appearance, PERRL, EOMI. Absent: nystagmus - ENT ENT exam: mucous membranes moist - Neck Neck exam: Present: normal inspection, full ROM, trachea midline - Chest Chest inspection: Present: normal inspection, symmetric chest wall rise - Respiratory Respiratory exam: Present: other (Lungs sounds coarse to auscultation throughout the periphery and bilaterally.). Absent: respiratory distress, wheezes, stridor, accessory muscle use, prolonged expiratory phase - Cardiovascular Cardiovascular exam: Present: regular rate, normal rhythm, normal heart sounds - Abdominal Exam Abdominal exam: Present: soft, Non-Tender, normal bowel sounds. Absent: tenderness, distention, guarding, rebound, rigidity - Extremities Exam Extremities exam: Present: normal inspection, full ROM. Absent: tenderness, pedal edema - Neurological Exam Neurological exam: Present: alert, oriented X3, normal gait - Psychiatric Psychiatric exam: Present: normal affect, normal mood - Skin Skin exam: Present: warm, dry, intact, normal color. Absent: rash, cyanosis, diaphoresis, erythema, pallor, mottled Course Course Narrative: Dr. Meeks has had a yeaw-ci-reuz evaluation with this patient as well and recommends admission to the hospitalist service. I spoke with RUBEN Sorto of the hospitalist service. She has accepted the patient for admission for observation and evaluation/further treatment of his CHF/pulmonary edema. Vital Signs Temperature 98.3 F 01/26/17 08:56 Pulse Rate 109 01/26/17 08:56 Respiratory Rate 20 01/26/17 08:56 Blood Pressure 217/131 01/26/17 08:56 O2 Sat by Pulse Oximetry 91 L 01/26/17 08:56 Temperature 98.3 F 01/26/17 08:56 Pulse Rate 90 01/26/17 11:00 Respiratory Rate 16 01/26/17 11:00 Blood Pressure 148/110 01/26/17 11:00 O2 Sat by Pulse Oximetry 95 01/26/17 11:00 Oxygen Delivery Oxygen Delivery Nasal Cannula Shortness of Breath/Dyspnea - Medical Records Medical records reviewed: Yes I reviewed the patient's medical records. - Lab Data Lab results reviewed: Yes I reviewed the patient's lab results. Result diagrams: 01/26/17 09:14 01/26/17 09:14 Lab Results 01/26/17 01/26/17 01/26/17 Range/Units 09:14 09:14 09:14 WBC 8.8 (4.3-11.1) K/mcL RBC 5.27 (4.19-5.50) M/mcL Hgb 15.6 (12.9-16.9) g/dL Hct 46.7 (37.5-50.1) % MCV 88.6 (83.0-100.0) fL MCH 29.6 (28.0-33.3) pg MCHC 33.4 (31.6-35.5) g/dL RDW 13.8 (11.5-14.5) % Plt Count 244 (140-400) K/mcL MPV 10.5 (9.4-12.4) fL Immature Gran % 0.3 (0-4) % Seg Neutrophils % 67.5 % Lymphocytes % 17.9 % Monocytes % 9.4 % Eosinophils % 4.3 % Basophils % 0.6 % Neutrophils # 5.9 (1.6-8.9) K/mcL Lymphocytes # 1.6 (0.6-4.6) K/mcL Monocytes # 0.8 (0.0-1.3) K/mcL Eosinophils # 0.4 (0.0-0.6) K/mcL Basophils # 0.1 (0.0-0.2) K/mcL Immature Plt Fraction 4.6 (1.1-6.1) % PT 10.6 (9.4-12.1) Seconds INR 1.0 APTT 29.8 (26.0-36.0) Seconds D-Dimer 1162 H (0-500) ng/mLFEU Sodium 137 (136-145) mEq/L Potassium 4.3 (3.5-4.5) mEq/L Chloride 104 (98-109) mEq/L Carbon Dioxide 26 (19-29) mEq/L BUN 20 (8-26) mg/dL Creatinine 1.21 (0.72-1.25) mg/dL Est GFR ( Amer) > 60 (> 60) Est GFR (Non-Af Amer) > 60 (> 60) BUN/Creatinine Ratio 17 (6-26) Glucose 108 H (70-99) mg/dL Calculated Osmolality 287 (280-300) Calcium 9.3 (8.6-10.8) mg/dL Troponin I (0-0.03) ng/mL B-Natriuretic Peptide (0-100) pg/mL 01/26/17 01/26/17 Range/Units 09:14 09:14 WBC (4.3-11.1) K/mcL RBC (4.19-5.50) M/mcL Hgb (12.9-16.9) g/dL Hct (37.5-50.1) % MCV (83.0-100.0) fL MCH (28.0-33.3) pg MCHC (31.6-35.5) g/dL RDW (11.5-14.5) % Plt Count (140-400) K/mcL MPV (9.4-12.4) fL Immature Gran % (0-4) % Seg Neutrophils % % Lymphocytes % % Monocytes % % Eosinophils % % Basophils % % Neutrophils # (1.6-8.9) K/mcL Lymphocytes # (0.6-4.6) K/mcL Monocytes # (0.0-1.3) K/mcL Eosinophils # (0.0-0.6) K/mcL Basophils # (0.0-0.2) K/mcL Immature Plt Fraction (1.1-6.1) % PT (9.4-12.1) Seconds INR APTT (26.0-36.0) Seconds D-Dimer (0-500) ng/mLFEU Sodium (136-145) mEq/L Potassium (3.5-4.5) mEq/L Chloride (98-109) mEq/L Carbon Dioxide (19-29) mEq/L BUN (8-26) mg/dL Creatinine (0.72-1.25) mg/dL Est GFR ( Amer) (> 60) Est GFR (Non-Af Amer) (> 60) BUN/Creatinine Ratio (6-26) Glucose (70-99) mg/dL Calculated Osmolality (280-300) Calcium (8.6-10.8) mg/dL Troponin I 0.03 (0-0.03) ng/mL B-Natriuretic Peptide 461 H (0-100) pg/mL - Radiology Data Radiology results reviewed: Yes I reviewed the patient's radiology results. - EKG Data EKG attestation: Yes I reviewed and interpreted this EKG. EKG results narrative: EKG reviewed by Dr. Meeks as well. EKG shows a sinus tachycardia at a rate of 103 bpm with left atrial enlargement and nonspecific T-wave abnormalities. No significant changes from previous EKG dated 12/14/16. No ectopy noted. No STEMI. Attestation Statement - Attestation Attestation: I examined this patient and my medical decision-making was reviewed with the MATH TEACHER/PA/Advanced Practice Nurse/Resident Physician. I agree with the documented findings, disposition and treatment plan as described except to the extent set forth below. Patient emergency department difficulty in breathing. Onset this morning. States he had trouble sleeping as well. Waking up at night short of breath. No cough no fever. Noncompliant with medications. On exam he is in no distress. He is satting 91% on room air. Lungs some rales in the bases right worse than left. 2+ pedal edema. Plan. It appears to be in CHF. Chest x-ray shows edema with a possible mass. CT was ordered. Lasix given. Nitroglycerin for pressure and CHF. Will admit.
[2017-01-26 09:21] LABS: Basophils # 0.1 K/mcL (0.0-0.2); Basophils % 0.6 %; Eosinophils # 0.4 K/mcL (0.0-0.6); Eosinophils % 4.3 %; Hematocrit 46.7 % (37.5-50.1); Hemoglobin 15.6 g/dL (12.9-16.9); Immature Granulocytes % 0.3 % (0-4); Immature Platelets 4.6 % (1.1-6.1); Lymphocytes # 1.6 K/mcL (0.6-4.6); Lymphocytes % 17.9 %; Mean Corpuscular HGB Conc 33.4 g/dL (31.6-35.5); Mean Corpuscular Hemoglobin 29.6 pg (28.0-33.3); Mean Corpuscular Volume 88.6 fL (83.0-100.0); Mean Platelet Volume 10.5 fL (9.4-12.4); Monocytes # 0.8 K/mcL (0.0-1.3); Monocytes % 9.4 %; Neutrophils # 5.9 K/mcL (1.6-8.9); Platelet Count 244 K/mcL (140-400); Red Blood Count 5.27 M/mcL (4.19-5.50); Red Cell Distribution Width 13.8 % (11.5-14.5); Segmented Neutrophils % 67.5 %
[2017-01-26] MEDS ORDERED: Furosemide 40 MG/4 ML VIAL IVP ONE ×2 (09:23→22:49)
[2017-01-26 09:26] LABS: Prothrombin Time 10.6 Seconds (9.4-12.1)
[2017-01-26 09:28] LABS: Activated Partial Thrombo Time 29.8 Seconds (26.0-36.0)
[2017-01-26] MEDS ORDERED: Nitroglycerin 25 MG/250 ML INFUS..BTL IVC SCH (09:30)
[2017-01-26 09:32] LABS: BUN/Creatinine Ratio 17 (6-26); Blood Urea Nitrogen 20 mg/dL (8-26); Calcium 9.3 mg/dL (8.6-10.8); Carbon Dioxide 26 mEq/L (19-29); Chloride 104 mEq/L (98-109); Glucose 108 mg/dL (70-99); Osmolality,Calculated 287 (280-300); Potassium 4.3 mEq/L (3.5-4.5); Sodium 137 mEq/L (136-145); eGFR For African Americans > 60 (> 60); eGFR For Non-African Americans > 60 (> 60)
[2017-01-26] MEDS: Furosemide 40 MG/4 ML VIAL IVP SCH (16:40)
[2017-01-26] MEDS ORDERED: Naloxone 0.4 MG/ML INJ IVP PRN (16:41)
--- NOTE | 2017-01-26 22:23 | Event Note ---
Date of Encounter: 01/26/17 Time of Encounter: 20:00 Patient presented with sudden onset severe shortness of breath with no chest pain, which started this morning while he was sitting up. He cannot lie flat while sleeping in bed. He also reports some lower extremity swelling. On exam he is in no acute distress, heart is regular S1 and S2. Lungs with fine crackles in the bases, abdomen is soft nontender. Extremities with 1+ pitting edema EKG revealed bowel sounds shows normal sinus rhythm with left atrial enlargement. No acute ST or T-wave changes Plan: For possible systolic and diastolic heart failure we will repeat a limited echocardiogram to reassess ejection fraction. We will treat him with IV Lasix. I reinforced the need for compliance with medication and diet. We will obtain a stress test as part of the ischemic workup.
--- NOTE | 2017-01-26 23:01 | Internal Med History&Physical ---
Date of Encounter: 01/26/17 Time of Encounter: 22:53 Assessment and Plan (1) Congestive heart failure Current visit: Yes Status: Acute Patient with sudden onset SOB, increase BLE swelling. Echo from 12/14/16 showed EF 50%, Low normal LV systolic function, mild diastolic dysfunction, severely enlarged right atrium, mild mitral regurg. 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 Qualifiers: Congestive heart failure type: diastolic Congestive heart failure chronicity: acute on chronic Qualified Code(s): I50.33 - Acute on chronic diastolic (congestive) heart failure (2) Shortness of breath Current visit: No Status: Acute Patient with sudden onset of shortness of breath this morning at rest. He also reports needing to sleep propped up on pillows, and slightly increased swelling of his bilateral lower extremities. He was hospitalized one month ago for similar symptoms and found to have congestive heart failure. He reports that he has not been taking any medication. Chest x-ray showed diffuse bilateral interstitial opacities which appear similar to prior exam, may represent pulmonary edema, new patchy perihilar nodular densities. CT of the chest was obtained which showed findings most consistent with mild CHF including interstitial pulmonary edema, and small bilateral pleural effusions. BNP was elevated at 461. Echocardiogram from 12/14/16 showed LVEF of 50%, low normal LV systolic function, evidence of mild diastolic dysfunction, severely enlarged left atrium, mild mitral regurg. 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 Champion is a 61 year old male with history of hypertension presented to the emergency department today with sudden onset of shortness of breath and difficulty breathing. Patient reports that this morning around 5 AM he suddenly felt like he could not.. He does report that he has needed to sit almost upright to sleep over the last several weeks. And he has noted some slight increase in bilateral lower extremity swelling. He denies any headache, lightheadedness, chest pain, palpitations. He denies any fever, chills, sweats , coughing. Patient was hospitalized last month with new congestive heart failure, but did not show up to his follow-up with Dr. Millan on 12/27. Patient reports he has been diagnosed with hypertension in the past, however has not followed up with a physician in some time, and does not take any medications. Evaluation in the emergency department revealed elevated BNP 461, normal troponin at 0.03, d-dimer elevation to 1162. Chest x-ray showed diffuse bilateral interstitial opacities which appear similar to prior exam, may represent pulmonary edema, new patchy perihilar nodular densities. CT of the chest was obtained which showed findings most consistent with mild CHF including interstitial pulmonary edema, and small bilateral pleural effusions. On exam, patient is alert and oriented, in no acute distress. Heart has regular rate and rhythm, mild crackles in bilateral bases. He has +1 BLE edema. Past Med Surg Social Fam HX - Past Medical History Medical history: CHF, hypertension Psychiatric history: no psych history - Past Surgical History Surgical History: no surgical history - Social History Smoking Status: Former smoker (15 pack year history) Smokeless Tobacco Status: No Alcohol use: none Drug use: none - Family History Father Living Status: Age at : 79 Cause of : [place] Hx Family Cardiac Disorders: Yes Hx Family Respiratory Disorders: No Hx Family Cancer: No Hx Family GI Disorders: No Hx Family Endocrine Disorder: No Hx Family Medical Disorders: Yes Internal Medicine - H&P: Meds No Known Home Drugs 01/26/17 [History] Allergies No Known Allergies Allergy (Verified 01/26/17 08:55) All Systems PM: A 10-system review of systems was performed and is negative for pertinent findings except as documented above in the HPI. - Constitutional Constitutional: no chills, no fever(s), no night sweats - EENT Eyes: no change in vision, no discharge, no pain, no photophobia Ears: no ear discharge, no ear pain, no tinnitus Nose, mouth and throat: no dysphagia, no nasal discharge, no neck pain, no sore throat - Cardiovascular Cardiovascular ROS IM: dyspnea, no chest pain, no diaphoresis, no lightheadedness, no palpitations, no syncope - Respiratory Respiratory: dyspnea, no cough, no wheezing, no excessive phlegm production - Gastrointestinal Gastrointestinal: no abdominal pain, no diarrhea, no hematemesis, no hematochezia, no melena, no nausea, no vomiting - Musculoskeletal Musculoskeletal ROS IM: no numbness, no tingling - Neurological Neurological ROS: no confusion, no convulsions, no focal weakness, no numbness, no tingling, no tremor(s) - Hematologic/Lymphatic Hematologic/Lymphatic: no easy bruising - Constitutional Vitals: Temp Pulse Resp BP Pulse Ox 97.5 F L 102 18 133/89 93 L 01/26/17 16:41 01/26/17 21:04 01/26/17 21:04 01/26/17 21:04 01/26/17 21:52 General appearance: Present: A&O X 3, pleasant, no acute distress - Head Head exam: Present: atraumatic, normocephalic - Eye Eye exam: Present: PERRL, conjuntiva pink, sclera anicteric Pupils: Present: PERRL - Neck Neck exam general surgery: Present: supple, trachea midline. Absent: lymphadenopathy - Respiratory Respiratory exam: Present: rales (mild crackles in bases). Absent: accessory muscle use, rhonchi, wheezes - Cardiovascular Cardiovascular exam: Present: RRR, +S1, +S2. Absent: diastolic murmur, gallop, rubs, systolic murmur - GI/Abdominal GI/Abdominal exam: Present: normal bowel sounds, soft, no peritoneal signs. Absent: distended, tenderness - Extremities Exam Extremities exam: Present: pedal edema (+1 BLE edema), warm, radial pulses palpable and symetrical. Absent: calf tenderness, cyanotic - Neurological Exam Neurological exam: Present: CN II-XII intact, oriented X3, no focal deficits. Absent: facial droop, speech deficit - Skin Skin exam: Present: dry, intact Internal Med - H&P Results - Labs CBC & Chem 7: 01/26/17 09:14 01/26/17 09:14 Labs: All Lab Results (24 Hours) 01/26/17 01/26/17 01/26/17 Range/Units 09:14 09:14 09:14 WBC 8.8 (4.3-11.1) K/mcL RBC 5.27 (4.19-5.50) M/mcL Hgb 15.6 (12.9-16.9) g/dL Hct 46.7 (37.5-50.1) % MCV 88.6 (83.0-100.0) fL MCH 29.6 (28.0-33.3) pg MCHC 33.4 (31.6-35.5) g/dL RDW 13.8 (11.5-14.5) % Plt Count 244 (140-400) K/mcL MPV 10.5 (9.4-12.4) fL Immature Gran % 0.3 (0-4) % Seg Neutrophils % 67.5 % Lymphocytes % 17.9 % Monocytes % 9.4 % Eosinophils % 4.3 % Basophils % 0.6 % Neutrophils # 5.9 (1.6-8.9) K/mcL Lymphocytes # 1.6 (0.6-4.6) K/mcL Monocytes # 0.8 (0.0-1.3) K/mcL Eosinophils # 0.4 (0.0-0.6) K/mcL Basophils # 0.1 (0.0-0.2) K/mcL Immature Plt Fraction 4.6 (1.1-6.1) % PT 10.6 (9.4-12.1) Seconds INR 1.0 APTT 29.8 (26.0-36.0) Seconds D-Dimer 1162 H (0-500) ng/mLFEU Sodium 137 (136-145) mEq/L Potassium 4.3 (3.5-4.5) mEq/L Chloride 104 (98-109) mEq/L Carbon Dioxide 26 (19-29) mEq/L BUN 20 (8-26) mg/dL Creatinine 1.21 (0.72-1.25) mg/dL Est GFR ( Amer) > 60 (> 60) Est GFR (Non-Af Amer) > 60 (> 60) BUN/Creatinine Ratio 17 (6-26) Glucose 108 H (70-99) mg/dL Calculated Osmolality 287 (280-300) Calcium 9.3 (8.6-10.8) mg/dL Troponin I (0-0.03) ng/mL B-Natriuretic Peptide (0-100) pg/mL 01/26/17 01/26/17 Range/Units 09:14 09:14 WBC (4.3-11.1) K/mcL RBC (4.19-5.50) M/mcL Hgb (12.9-16.9) g/dL Hct (37.5-50.1) % MCV (83.0-100.0) fL MCH (28.0-33.3) pg MCHC (31.6-35.5) g/dL RDW (11.5-14.5) % Plt Count (140-400) K/mcL MPV (9.4-12.4) fL Immature Gran % (0-4) % Seg Neutrophils % % Lymphocytes % % Monocytes % % Eosinophils % % Basophils % % Neutrophils # (1.6-8.9) K/mcL Lymphocytes # (0.6-4.6) K/mcL Monocytes # (0.0-1.3) K/mcL Eosinophils # (0.0-0.6) K/mcL Basophils # (0.0-0.2) K/mcL Immature Plt Fraction (1.1-6.1) % PT (9.4-12.1) Seconds INR APTT (26.0-36.0) Seconds D-Dimer (0-500) ng/mLFEU Sodium (136-145) mEq/L Potassium (3.5-4.5) mEq/L Chloride (98-109) mEq/L Carbon Dioxide (19-29) mEq/L BUN (8-26) mg/dL Creatinine (0.72-1.25) mg/dL Est GFR ( Amer) (> 60) Est GFR (Non-Af Amer) (> 60) BUN/Creatinine Ratio (6-26) Glucose (70-99) mg/dL Calculated Osmolality (280-300) Calcium (8.6-10.8) mg/dL Troponin I 0.03 (0-0.03) ng/mL B-Natriuretic Peptide 461 H (0-100) pg/mL - Diagnostic Studies Chest x-ray Additional comments: Chest X-Ray 01/26/17 09:06 IMPRESSION: 1. Diffuse bilateral interstitial opacities which appear similar to the prior exam and may represent pulmonary edema or possible interstitial process. 2. New patchy perihilar nodular densities, recommend further evaluation with CT chest with contrast. D/ : / 01/26/2017 10:31:37 Mat Brumfield MD / angélica Interpreting Provider: Mat Brumfield MD CT scan - chest Additional comments: Chest CT 01/26/17 09:26 IMPRESSION: 1. Findings are most consistent with mild CHF, including interstitial pulmonary edema and small bilateral pleural effusions. 2. Nonspecific scattered subcentimeter ground-glass nodular opacities throughout both lungs, with an upper lobe predominance, are most likely infectious or inflammatory in etiology. However, suggest appropriate clinical treatment, and short-term chest CT follow-up in 6-8 weeks to ensure resolution of these nodular opacities. 3. Scattered bibasilar predominant ground-glass opacity throughout both lungs likely reflects either atelectasis or pulmonary edema. There is no evidence of lobar pneumonia. 4. Mild right paratracheal right hilar lymphadenopathy is likely benign and reactive in etiology. This should also be assessed for stability on follow-up chest CT. 5. Cholelithiasis. D/ /26/2017 12:06:20 Jason Bowser MD / angélica Interpreting Provider: Jason Bowser MD
[2017-01-27] MEDS: *HR* Enoxaparin 40 MG/0.4 ML SYRINGE SQ SCH (05:47)
[2017-01-27 07:29] LABS: BUN/Creatinine Ratio 19 (6-26); Basophils # 0.1 K/mcL (0.0-0.2); Basophils % 0.5 %; Blood Urea Nitrogen 22 mg/dL (8-26); Carbon Dioxide 27 mEq/L (19-29); Chloride 102 mEq/L (98-109); Eosinophils # 0.4 K/mcL (0.0-0.6); Eosinophils % 3.8 %; Glucose 98 mg/dL (70-99); Hematocrit 47.5 % (37.5-50.1); Immature Granulocytes % 0.4 % (0-4); Lymphocytes % 21.4 %; Mean Corpuscular HGB Conc 33.7 g/dL (31.6-35.5); Mean Corpuscular Hemoglobin 30.2 pg (28.0-33.3); Mean Corpuscular Volume 89.6 fL (83.0-100.0); Mean Platelet Volume 10.7 fL (9.4-12.4); Monocytes # 0.9 K/mcL (0.0-1.3); Osmolality,Calculated 291 (280-300); Platelet Count 241 K/mcL (140-400); Potassium 3.9 mEq/L (3.5-4.5); Red Cell Distribution Width 14.4 % (11.5-14.5); Segmented Neutrophils % 63.9 %; Sodium 139 mEq/L (136-145); eGFR For African Americans > 60 (> 60); eGFR For Non-African Americans > 60 (> 60)
--- NOTE | 2017-01-27 11:57 | ECHO - Doppler Report ---
Limited Echocardiogram Name: Edgar Champion Date of Study: 01/27/2017 Date: 1955 Ht: 70.0 in Medical Record#: [id number] Age: 61 Wt: 231.0 lb Gender: Male BSA: 2.22 Order #: [id number] Location: [facility] Room #: 2NE24 Reading Physician: Jose Luis Leroy MD, [facility] Stonemason Helper: VINCENT ParkT, [facility] Ordering Physician: Paulina Larson CNP Primary Physician: None Indications: Congestive heart failure Impressions: Mild-moderate LV systolic dysfunction, LVEF 40%. There is global hypokinesis with regional variations. Mild concentric left ventricular hypertrophy. Normal right ventricular size and function. Moderate-severely dilated left atrium. Valvular function was not assessed on this limited study. Left Ventricular Wall Motion: Rest Echo Findings The apex, apical inferior, mid inferior, basal inferior, apical anterior, mid anterior, basal anterior, apical septal, mid inferior septal, basal inferior septal, apical lateral, mid anterior lateral, basal anterior lateral, mid anterior septal, mid inferior lateral, basal anterior septal and basal inferior lateral herrera were hypokinetic. Findings: Study Quality * Technically adequate exam. ECG Findings * Normal sinus rhythm. Left Ventricle * Mild-moderate LV systolic dysfunction, LVEF 40%. There is global hypokinesis with regional variations. * Mild concentric left ventricular hypertrophy. Right Ventricle * Normal right ventricular size and function. Left Atrium * Moderate-severely dilated left atrium. Right Atrium * Normal right atrial size. Aorta * Normally sized aortic root. Pericardium * There is no pericardial effusion present. IVC * The IVC is not dilated. History Hypertension Years 20 Packs 0.5 Family History of CAD Congestive Heart Failure 12/14/2016 a Previous Echo was performed. Measurements: BP: 132/ 83 2D Normal Values RVIDd: 2.60 cm IVSd: 1.30 cm 0.6 - 1.0 cm LVIDd: 5.60 cm 3.7 - 5.6 cm LVPWd: 1.20 cm 0.6 - 1.1 cm LVIDs: 4.30 cm 1.5 - 3.6 cm AO: 2.80 cm < 4.0 cm %FS: 23.20 cm >25 % LA volume: 90 Updated by Jose Luis Leroy MD, [facility] on 01/27/2017 11:50:39 AM electronically signed on 01/27/2017 11:51:09 AM with status of Final Wall Motion Jimenez: 1=Normal, 2=Hypokinesis, 3=Akinesis, 4=Dyskinesis, 5=Aneurysmal, 6=Hyperkinetic, X=Not Visualized (Blank)=Missing
[2017-01-27] MEDS: Furosemide 40 MG/4 ML VIAL IVP SCH ×2 (12:44→21:03)
--- NOTE | 2017-01-27 12:52 | Nuclear Medicine Stress Report ---
Exercise Nuclear Stress Name: Edgar Champion Date of Study: 01/27/2017 Date: 1955 Ht: 70.0 in Medical Record#: [id number] Age: 61 Wt: 231.0 lb Gender: Male Order #: [id number] Location: [facility] Room: 2ne24 Supervising Provider: Quincy Burns CNP Reading Physician: Jose Luis Leroy MD, [facility] Ordering Physician: Murphy Esparza MD Primary Care Physician: None Stress Technologist: Becka Valderrama RRT,[facility] Fusion Analyst: Orlando Aragon Indications: Shortness of breath Impression: The exercise capacity was average. Exercise ECG is non-diagnostic for ischemia due to baseline ST-T wave abnormalities. The left ventricle is mildly dilated. Severe LV systolic dysfunction, gated LVEF = 28%. There is decreased perfusion throughout the inferior wall on the resting images. Perfusion slightly improves with stress. Suspect artifact, however, cannot rule-out inferior wall myocardial infarction. There is no evidence of reversible myocardial ischemia. Abnormal findings were discussed with the ordering physician. Stress Test Summary: Stress Test Type: Treadmill Protocol: Brian Baseline Information: Initial Heart Rate: 84 Blood Pressure: 110/70 Stress Information: Stress Time: 7 min 18 sec Test Terminated Due to (primary): Dyspnea Maximum Blood Pressure: 166/80 Maximum Heart Rate: 140 Percent Maximum Heart Rate Achieved: 87 Double Product: [id number] METS Reached: 1 Symptoms: Shortness of breath Nuclear Summary: SPECT myocardial perfusion imaging using Tc99m Sestamibi given intravenously was performed at rest and following cardiac stress testing. The resting images were obtained following initial dose of 10.2 mCi. Following stress an additional dose of 35.5 mCi was given at peak exercise or 30 seconds post regadenoson infusion. Findings: Stress Note * Resting ECG demonstrated sinus rhythm, right atrial enlargement, poor r-wave progression, non-specific ST-T wave abnormalities. * No baseline arrhythmias were noted. * The exercise capacity was average. * Patient had no chest pain during stress. * Rare PVCs noted during exercise and recovery. * Exercise ECG is non-diagnostic for ischemia due to baseline ST-T wave abnormalities. Hemodynamic responses * Normal hemodynamic responses to exercise. Study Quality * Study quality is average. Gated EF % * Severe LV systolic dysfunction, gated LVEF = 28%. Left Ventricle * The left ventricle is mildly dilated. * There is decreased perfusion throughout the inferior wall on the resting images. Perfusion slightly improves with stress. Suspect artifact, however, cannot rule-out inferior wall myocardial infarction. * All other segmental perfusion normal in rest and stress. * There is no evidence of reversible myocardial ischemia. TID * No evidence of transient ischemic dilatation. Updated by Jose Luis Leroy MD, [facility] on 01/27/2017 12:44:52 PM electronically signed on 01/27/2017 12:46:39 PM with status of Final
--- NOTE | 2017-01-27 13:19 | Cardiology Consult Note ---
Date of Encounter: 01/27/17 Time of Encounter: 13:16 Assessment and Plan (1) Congestive heart failure Current Visit: Yes Status: Acute Acute systolic exacerbation. New diagnosis. Symptoms of dyspnea and orthopnea, lower extremity edema. BNP 461, chest XR and CT shows findings of CHF. Limited echo ordered during this stay shows EF 40%, global hypokinesis with regional variations--mild-moderate LV systolic dysfunction. Mild concentric LVH , moderate-severely dilated LA. Gated EF on stress 28%. Agree with IV diuresis 40mg IV Lasix BID. Cumulative I/O negative -1600mL. Recommend Strict I/Os, daily weights, Na and fluid restriction. Continue Lasix and ARB. Add low dose BB and ASA. Qualifiers: Congestive heart failure type: systolic Congestive heart failure chronicity : acute on chronic Qualified Code(s): I50.23 - Acute on chronic systolic ( congestive) heart failure (2) Cardiomyopathy Current Visit: Yes Status: Acute Limited echo ordered during this stay shows EF 40%, global hypokinesis with regional variations--mild-moderate LV systolic dysfunction. Mild concentric LVH , moderate-severely dilated LA. Continue Lasix and ARB. Add low dose BB and ASA. Stress test showed gated EF 28%. Decreased perfusion throughout inferior wall at rest, perfusion slightly improves with stress. Suspect artifact, cannot rule out inferior wall SD. No reversible ischemia. Ischemic vs. Nonischemia CMP. Pt denies excessive ETOH intake or any recent significant life stressors. No known CAD hx. Risk factors for CAD include HTN, former tobacco abuse and family hx. Recommend [facility] to further evaluate. R/B/A discussed and pt agrees. [facility] tomorrow. Qualifiers: Cardiomyopathy type: unspecified Qualified Code(s): I42.9 - Cardiomyopathy , unspecified Discussion w patient/family: The assessment and plan as outlined above was discussed with the patient and/or family members who expressed understanding and agreement. All questions were answered. Thank you for involving us in the care of your patient. Please call with any questions. I will discuss all the above with Dr. Leroy and make changes as needed. History of Present Illness Consult date: 01/27/17 Requesting physician: Murphy Esparza Consult reason: CHF Chief complaint: dyspnea, lower extremity edema History of present illness: Mr. Champion is a 61 year old male with PMH of prior tobacco abuse and HTN that presented to ED for dyspnea, orthopnea, and lower extremity edema. Initial admission was last month and at that time EF was noted to be 50% on echo. He was discharged home. He states since then, he has been experiencing intermittent symptoms of dyspnea and orthopnea. Lower extremity edema just started. BNP 461, chest XR and CT shows findings of CHF. Limited echo ordered during this stay shows EF 40%, global hypokinesis with regional variations--mild -moderate LV systolic dysfunction. Mild concentric LVH, moderate-severely dilated LA. Stress test showed gated EF 28%. Decreased perfusion throughout inferior wall at rest, perfusion slightly improves with stress. Suspect artifact , cannot rule out inferior wall SD. No reversible ischemia. Pt denies any chest pain. Reports dyspnea and edema have improved with Lasix. Reports his father had his first SD at age 57. Past Med Surg Social Fam HX - Past Medical History Medical history: CHF, hypertension Psychiatric history: no psych history - Past Surgical History Surgical History: no surgical history - Social History Smoking Status: Former smoker (15 pack year history) Smokeless Tobacco Status: No Alcohol use: none Drug use: none - Family History Father Living Status: Age at : 79 Cause of : [place] Hx Family Cardiac Disorders: Yes Hx Family Respiratory Disorders: No Hx Family Cancer: No Hx Family GI Disorders: No Hx Family Endocrine Disorder: No Hx Family Medical Disorders: Yes Medications and Allergies No Known Home Drugs 01/26/17 [History] Allergies No Known Allergies Allergy (Verified 01/26/17 08:55) All Systems Review: A 10-system review of systems was performed and is negative for pertinent findings except as documented above in the HPI. - Cardiovascular Cardiovascular: as per HPI, dyspnea at rest, dyspnea on exertion, leg edema, orthopnea - Respiratory Respiratory: cough, dyspnea Physical Examination Vital Signs, Last 4 Hours Temp Pulse Resp BP Pulse Ox 01/27/17 10:00 98.4 F 94 15 122/76 93 L Vital Signs Temp Pulse Resp BP Pulse Ox 01/27/17 10:00 98.4 F 94 15 122/76 93 L 01/27/17 06:24 97.5 F L 79 15 132/83 92 L 01/27/17 04:50 97.8 F 73 15 127/73 95 01/27/17 01:03 98.1 F 80 16 144/103 95 01/26/17 21:52 93 L 01/26/17 21:04 102 18 133/89 93 L 01/26/17 16:41 97.5 F L 81 15 148/84 95 Intake and Output 01/26/17 01/27/17 01/27/17 23:59 07:59 15:59 Intake Total 600 / 600 200 / 200 0 / 0 Output Total 1150 / 1150 1250 / 1250 0 / 0 Balance -550 / -550 -1050 / -1050 0 / 0 Intake: Oral 600 / 600 200 / 200 0 / 0 Output: Urine 1150 / 1150 1250 / 1250 0 / 0 Other: Meal Dinner Percent of Meal Consumed 100% Weight 105.2 kg Patient Weight 01/27/17 23:59 Weight 105.2 kg General: Conversant, No Apparent Distress HEENT: Atraumatic, Normocephaly, Mucus Membranes Moist Neck: No JVD, Normal carotid pulses Cardiac: Reg Rate and Rhythm, Normal S1 and S2, No Murmur Lungs: Other (basilar crackles) Neuro: Alert and responsive, No focal deficits noted Abdomen: Soft, Non-Tender Skin: No rashes noted on visualized skin Musculoskeletal: No Chest Wall Tenderness Extremities: No Clubbing, No Cyanosis, No Edema, Normal Pulses Results 01/27/17 06:31 01/27/17 06:31 Lab Results 01/27/17 01/27/17 01/27/17 06:31 06:31 08:10 WBC 9.4 Hgb 16.0 Hct 47.5 Plt Count 241 Sodium 139 Potassium 3.9 Chloride 102 Carbon Dioxide 27 BUN 22 Creatinine 1.18 Glucose 98 Calcium 9.0 Troponin I 0.02 Short CBC 01/27/17 Range/Units 06:31 WBC 9.4 (4.3-11.1) K/mcL Hgb 16.0 (12.9-16.9) g/dL Hct 47.5 (37.5-50.1) % Plt Count 241 (140-400) K/mcL Neutrophils # 6.0 (1.6-8.9) K/mcL BMP 01/27/17 Range/Units 06:31 Sodium 139 (136-145) mEq/L Potassium 3.9 (3.5-4.5) mEq/L Chloride 102 (98-109) mEq/L Carbon Dioxide 27 (19-29) mEq/L BUN 22 (8-26) mg/dL Creatinine 1.18 (0.72-1.25) mg/dL Glucose 98 (70-99) mg/dL Calcium 9.0 (8.6-10.8) mg/dL Cardiac Enzymes 01/27/17 Range/Units 08:10 Troponin I 0.02 (0-0.03) ng/mL Impressions Chest CT 01/26/17 09:26 IMPRESSION: 1. Findings are most consistent with mild CHF, including interstitial pulmonary edema and small bilateral pleural effusions. 2. Nonspecific scattered subcentimeter ground-glass nodular opacities throughout both lungs, with an upper lobe predominance, are most likely infectious or inflammatory in etiology. However, suggest appropriate clinical treatment, and short-term chest CT follow-up in 6-8 weeks to ensure resolution of these nodular opacities. 3. Scattered bibasilar predominant ground-glass opacity throughout both lungs likely reflects either atelectasis or pulmonary edema. There is no evidence of lobar pneumonia. 4. Mild right paratracheal and right hilar lymphadenopathy is likely benign and reactive in etiology. This should also be assessed for stability on follow-up chest CT. 5. Cholelithiasis. D/ / 01/26/2017 12:06:20 Jason Bowser MD / [email or web address] Interpreting Provider: Jason Bowser MD Active Medications Enoxaparin Sodium (Lovenox) 40 mg SQ 0600 JOSELUIS PRN Reason: Protocol Stop: 07/29/17 06:01 Last Admin: 01/27/17 05:47 Dose: 40 mg Furosemide (Lasix) 40 mg IVP BIDDIURETIC JOSELUIS Stop: 07/28/17 17:01 Last Admin: 01/27/17 12:44 Dose: 40 mg Losartan Potassium (Cozaar) 12.5 mg PO DAILY JOSELUIS PRN Reason: Protocol Stop: 07/29/17 09:01 Last Admin: 01/27/17 12:42 Dose: 12.5 mg Naloxone HCl (Narcan) 0.4 mg IVP Q2MIN PRN PRN Reason: Opioid Reversal Stop: 07/28/17 16:42 - Imaging and Cardiology Chest Xray: report reviewed Stress Test: report reviewed Echo: report reviewed - EKG Interpretation EKG results cardiology: personally reviewed (sinus tach, rate 103), other (24 hour tele AVG HR 76, SR, no significant pauses or arrhythmias.) Consult Discharge Plan - Plan Referrals: NO,PCP [Primary Care Provider] -
[2017-01-27] MEDS ORDERED: Isosorbide MONOnitrate (24 HR) 30 MG TAB.ER.24H PO SCH (13:45)
[2017-01-27] MEDS: Aspirin 81 MG TAB.CHEW PO SCH (15:51)
--- NOTE | 2017-01-27 19:35 | Internal Med Progress Note ---
Date of Encounter: 01/27/17 Time of Encounter: 19:33 - Assessment and plan (1) Hypoxia Current Visit: No Status: Acute Assessment and plan: Likely caused by decompensated heart failure. Oxygen by nasal cannula to maintain saturation above 92%. (2) DVT prophylaxis Current Visit: Yes Status: Acute Assessment and plan: On subcutaneous Lovenox. (3) Acute systolic heart failure Current Visit: Yes Status: Acute Assessment and plan: We will continue with Lasix IV twice a day. Echocardiogram reveals an ejection fraction of 40%. He has had a nuclear study stress test which was negative for ischemia however the ejection fraction by nuclear imaging was read as 20%. This was discussed with cardiology. The plan is for the patient have a cardiac catheterization for ischemic workup tomorrow. (4) Essential hypertension Current Visit: Yes Status: Acute Assessment and plan: Continue with losartan and metoprolol. - Subjective Interval history: Patient reports very mild shortness of breath at rest, overall improved from yesterday, he has been able to ambulate without getting short of breath. Denies chest pain nausea and fever. - Constitutional Vitals: Temp Pulse Resp BP Pulse Ox 98.4 F 75 15 110/75 93 L 01/27/17 16:15 01/27/17 16:15 01/27/17 16:15 01/27/17 16:15 01/27/17 16:15 General appearance: Present: A&O X 3, pleasant, no acute distress - Eye Eye exam: Present: PERRL, conjuntiva pink, sclera anicteric Pupils: Present: PERRL - Respiratory Respiratory exam: Present: rales. Absent: accessory muscle use, rhonchi, wheezes - Cardiovascular Cardiovascular exam: Present: RRR, +S1, +S2. Absent: diastolic murmur, gallop, rubs, systolic murmur - Extremities Exam Extremities exam: Present: pedal edema, warm, radial pulses palpable and symetrical. Absent: calf tenderness, cyanotic - Skin Skin exam: Present: dry, intact Internal Medicine: Result - Labs CBC & Chem 7: 01/27/17 06:31 01/27/17 06:31 Labs: Short CBC 01/27/17 Range/Units 06:31 WBC 9.4 (4.3-11.1) K/mcL Hgb 16.0 (12.9-16.9) g/dL Hct 47.5 (37.5-50.1) % Plt Count 241 (140-400) K/mcL Neutrophils # 6.0 (1.6-8.9) K/mcL BMP 01/27/17 06:31 Sodium 139 Potassium 3.9 Chloride 102 Carbon Dioxide 27 BUN 22 Creatinine 1.18 Glucose 98 Calcium 9.0 Cardiac Enzymes 01/27/17 Range/Units 08:10 Troponin I 0.02 (0-0.03) ng/mL - ABG Interpretation ABG results: PT/INR, D-dimer PT 10.6 Seconds (9.4-12.1) 01/26/17 09:14 D-Dimer 1162 ng/mLFEU (0-500) H 01/26/17 09:14 Consult Discharge Plan - Plan Referrals: NO,PCP [Primary Care Provider] -
--- NOTE | 2017-01-27 23:12 | Electrocardiograph Report ---
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
[2017-01-28] MEDS: *HR* Enoxaparin 40 MG/0.4 ML SYRINGE SQ SCH (05:07)
[2017-01-28 05:20] LABS: Basophils # 0.1 K/mcL (0.0-0.2); Basophils % 0.6 %; Eosinophils # 0.4 K/mcL (0.0-0.6); Eosinophils % 3.9 %; Hematocrit 47.3 % (37.5-50.1); Hemoglobin 15.8 g/dL (12.9-16.9); Immature Granulocytes % 0.6 % (0-4); Lymphocytes # 2.5 K/mcL (0.6-4.6); Lymphocytes % 23.3 %; Mean Corpuscular HGB Conc 33.4 g/dL (31.6-35.5); Mean Corpuscular Hemoglobin 30.1 pg (28.0-33.3); Mean Corpuscular Volume 90.1 fL (83.0-100.0); Mean Platelet Volume 10.7 fL (9.4-12.4); Monocytes # 1.4 K/mcL (0.0-1.3); Monocytes % 12.6 %; Neutrophils # 6.4 K/mcL (1.6-8.9); Platelet Count 243 K/mcL (140-400); Red Blood Count 5.25 M/mcL (4.19-5.50); Red Cell Distribution Width 14.3 % (11.5-14.5)
[2017-01-28 05:32] LABS: BUN/Creatinine Ratio 19 (6-26); Blood Urea Nitrogen 26 mg/dL (8-26); Carbon Dioxide 28 mEq/L (19-29); Chloride 101 mEq/L (98-109); Glucose 94 mg/dL (70-99); Osmolality,Calculated 291 (280-300); Potassium 4.3 mEq/L (3.5-4.5); Sodium 138 mEq/L (136-145); eGFR For African Americans > 60 (> 60); eGFR For Non-African Americans 53 (> 60)
[2017-01-28] MEDS: Aspirin 81 MG TAB.CHEW PO SCH (08:00)
[2017-01-28] MEDS: Metoprolol XL (24 HR) Succ 25 MG TAB.ER.24H PO SCH (08:00)
[2017-01-28] MEDS: Furosemide 40 MG/4 ML VIAL IVP SCH (08:00)
[2017-01-28] MEDS ORDERED: 0.9 % Sodium Chloride 1,000 ML IVC ONE (08:02)
--- NOTE | 2017-01-28 11:24 | Pre-Sedation Evaluation ---
Pre-sedation evaluation - Pre-sedation checklist Date of procedure: 01/28/17 Procedure: [facility] Recent Vitals: Last Vital Signs Temp 98 F 01/28/17 06:59 Pulse 76 01/28/17 06:59 Resp 16 01/28/17 06:59 BP 116/82 01/28/17 06:59 Pulse Ox 97 01/28/17 08:00 H&P (including ROS) documented in medical record: Yes Previous reaction to sedatives/anesthetics: No Dietary Status: NPO after Midnight Airway Assessment: Patient can open mouth completely, TMJ function normal ASA Classification *see protocol: CLASS II-Mild systemic disease Plan of Care: Pt appropriate candidate for procedure/moderate/conscious sedation , Risks/benefits of procedure/sedation discussed w/ patient/family
--- NOTE | 2017-01-28 13:40 | Internal Med Progress Note ---
Date of Encounter: 01/28/17 Time of Encounter: 13:38 - Assessment and plan (1) Hypoxia Current Visit: No Status: Acute Assessment and plan: Likely caused by acute heart failure currently this has improved. We will titrate him off oxygen as long as his saturation remains above 92%. (2) DVT prophylaxis Current Visit: Yes Status: Acute Assessment and plan: On subcutaneous Lovenox. (3) Acute systolic heart failure Current Visit: Yes Status: Acute Assessment and plan: Stop Lasix due to elevated creatinine and need for IV contrast for cardiac catheterization. Echocardiogram reveals an ejection fraction of 40%. He has had a nuclear study stress test which was negative for ischemia however the ejection fraction by nuclear imaging was read as 20%. This was discussed with cardiology. The plan is for the patient have a cardiac catheterization for ischemic workup this afternoon. We will give 1 L bolus normal saline to prevent nephrotoxicity of IV contrast. (4) Essential hypertension Current Visit: Yes Status: Acute Assessment and plan: Continue with losartan and metoprolol. - Subjective Interval history: Patient reports 0/10 shortness currently, his on 2 L oxygen by nasal cannula. We will titrate him off the oxygen. Denies chest pain nausea and fever. He is awaiting cardiac catheterization this afternoon. - Constitutional Vitals: Temp Pulse Resp BP Pulse Ox 97.5 F L 71 16 126/88 98 01/28/17 11:59 01/28/17 11:59 01/28/17 11:59 01/28/17 11:59 01/28/17 11:59 General appearance: Present: A&O X 3, pleasant, no acute distress - Eye Eye exam: Present: PERRL, conjuntiva pink, sclera anicteric Pupils: Present: PERRL - Respiratory Respiratory exam: Present: CTAB. Absent: accessory muscle use, rales, rhonchi, wheezes - Cardiovascular Cardiovascular exam: Present: RRR, +S1, +S2. Absent: diastolic murmur, gallop, rubs, systolic murmur - GI/Abdominal GI/Abdominal exam: Present: normal bowel sounds, soft, no peritoneal signs. Absent: distended, tenderness - Extremities Exam Extremities exam: Present: pedal edema Internal Medicine: Result - Labs CBC & Chem 7: 01/28/17 04:55 01/28/17 04:55 Labs: Short CBC 01/28/17 Range/Units 04:55 WBC 10.9 (4.3-11.1) K/mcL Hgb 15.8 (12.9-16.9) g/dL Hct 47.3 (37.5-50.1) % Plt Count 243 (140-400) K/mcL Neutrophils # 6.4 (1.6-8.9) K/mcL BMP 01/28/17 04:55 Sodium 138 Potassium 4.3 Chloride 101 Carbon Dioxide 28 BUN 26 Creatinine 1.37 H Glucose 94 Calcium 9.0 - ABG Interpretation ABG results: PT/INR, D-dimer PT 10.6 Seconds (9.4-12.1) 01/26/17 09:14 D-Dimer 1162 ng/mLFEU (0-500) H 01/26/17 09:14 Consult Discharge Plan - Plan Referrals: Mae Ken, [facility] [Advanced Practice Nurse] - 02/07/17 10:30 am (located in [facility] #[phone] please give a days notice if you need to cancel appt Please expect a new pt packet in the mail to complete) NO,PCP [Primary Care Provider] -
[2017-01-28] MEDS ORDERED: 0.9 % Sodium Chloride 2,000 ML ONE (13:42)
[2017-01-28] MEDS ORDERED: Heparin 1,000 UNITS/500 mL NS 500 ML ONE (13:42)
[2017-01-28] MEDS ORDERED: *HR* Heparin 10,000 UNIT/10 ML VIAL ONE (13:42)
[2017-01-28] MEDS ORDERED: Verapamil 5 MG/2 ML VIAL ONE (13:43)
[2017-01-28] MEDS ORDERED: Nitroglycerin 1,000 MCG/10 ML VIAL IV ONE (13:43)
[2017-01-28] MEDS ORDERED: *HR* FentaNYL (PF) 100 MCG/2 ML VIAL ONE (14:53)
[2017-01-28] MEDS ORDERED: *HR* Midazolam HCl 5 MG/5 ML VIAL IVP ONE (14:53)
[2017-01-28] MEDS ORDERED: Tirofiban 5 MG/100ML 5 MG/100 ML BAG IV ONE (15:27)
--- NOTE | 2017-01-28 16:13 | Invasive Diagnostic Lab Proc ---
Name: Edgar Champion Date of Study: 01/28/2017 Date: 1955 Ht: 70.1in Medical Record#: [id number] Age: 61 Wt: 233.69lb Gender: Male BSA: 2.23 Order #: [id number] BMI: 33.46 Physicians Procedure Physician: Brian Odom MD, [facility] Referring MD: Referring MD: Staff Name Position Time In Linsey Espana RT (R) Monitor 02:45 PM ColtenMary RT (R) Scrub 02:45 PM Evita Abrams RN Director Of Finance 02:45 PM Leah Kim RN Director Of Finance 02:45 PM Indications Indication Cardiomyopathy Procedures Performed Procedure L HRT ARTERY/VENTRICLE ANGIO Pre-Procedure Checklist Informed consent is complete signed and on chart. H\\T\\P is on chart. ID band is on and ID verified with patient. Patient NPO for procedure The procedure was described for the patient and questions were answered. Blood Pressure: 116/82 ECG is on chart. Rhythm: NSR Plan of Care Patient will tolerate the procedure without complications. Adequate level of comfort will be maintained. Hemodynamics will remain stable Patient will recover from procedure without complications. Respiratory function will be maintained. Cardiac rhythm will remain stable. Patient temperature will be maintained. Patient and/or family have verbalized understanding of the procedure. Patient Education Chief Complaint/Reason for Test: Cardiac Cath Developmental Category: Adult (18-64 years) Developmentally Appropriate for Age: Yes Learning Barriers: None Education Needs: Procedure Education Method: Verbal Information Taught: Cardiac Cath Educational Evaluation: Able to repeat information Intravenous Access Time IV Size Location DC'd Fluid/Drip Rate Units RN 02:44 PM 18g 1 11/07" Patent On Arrival Rt Antecubital 0.9NaCl 25 mg/hr Allergies No Known Allergies NKA Vital Signs Time BP (mmHg) HR (bpm) O2 Sat. RR (bpm) LOC 116 / 82 76 96 % 16 02:54 PM / % 5 = Fully awake and oriented or at pre-proc level 02:54 PM / % 4 = Oriented but drowsy 03:16 PM 109 / 64 67 93 % 10 03:21 PM 123 / 63 61 97 % 11 03:26 PM 116 / 71 66 94 % 14 03:31 PM 121 / 75 65 96 % 6 03:36 PM 131 / 76 65 97 % 11 03:41 PM 134 / 89 66 98 % 33 03:46 PM 141 / 82 67 99 % 11 03:51 PM 133 / 91 68 97 % 3 03:56 PM 124 / 83 69 % 10 02:51 PM 156 / 95 77 98 % 9 02:56 PM 145 / 82 73 95 % 10 03:01 PM 132 / 89 75 94 % 23 03:06 PM 121 / 75 69 94 % 27 03:11 PM 107 / 64 72 93 % 13 03:15 PM 113 / 64 68 92 % 28 Procedural Medications Time Medication Dose Units Method Given By 02:53 PM Oxygen 2 L/min nasal cannula WykoffLeah gonzales RN 02:54 PM Versed 2 mg Intravenous JudyLeah RN 02:54 PM Fentanyl 50 mcg Intravenous JudyLeah gonzales RN 02:59 PM Versed 2 mg Intravenous JudyLeah gonzales RN 03:00 PM Oxygen 4 L/min nasal cannula WykoffLeah gonzales RN 03:07 PM Lidocaine 2% 0.5 ml Subcutaneous Brian Odom MD, FACC 03:09 PM Heparin 4000 units Nitroglycerin 200 mcg Verapamil 2.5 mg Intraarterial Brian Odom MD, FACC 03:18 PM Oxygen 5 L/min nasal cannula WykoffLeah gonzales RN 03:30 PM Aggrastat Bolus: 54 ml Intravenous WykoffLeah gonzales RN 03:30 PM Aggrastat 5mg/100ml 19.5 ml Intravenous AlizaEvita chaves RN 03:40 PM Oxygen 2 L/min nasal cannula WykoffLeah gonzales RN 03:54 PM Aggrastat 5mg/100ml 19.5 ml Intravenous WykoffLeah gonzales RN dc'd Carmen Score Preprocedure Postprocedure Activity 2- Moves 4 extremities sustained head lift Activity Circulation 2- SBP +/= 20 points of pre-anesthetic level Circulation Consciousness 2- Awake and alert oriented x 3 Consciousness O2 Saturation 2- Able to maintain O2 satruation of 92% on room air O2 Saturation Respiratory 2- Able to deep breathe and cough well Respiratory Total Score 10 Total Score Contrast Agent: Isovue Diagnostic Contrast: 123 ml Total Contrast: 123 ml Fluoro Dose: 797 mGy Activated Clotting Time Time Seconds to Clot 03:31 PM 302 Procedure Log Time Note Enter By 02:44 PM CathStat 02:44 PM 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 to aquatic laborer 2 at 14:44 scoates 02:45 PM Linsye Espana RT (R) Position: Monitor Time in: 14:45 scoates 02:45 PM Mary Abel RT (R) Position: Scrub Time in: 14:45 scoates 02:45 PM Evita Abrams RN Position: Director Of Finance Time in: 14:45 scoates 02:45 PM Leah Kim RN Position: Director Of Finance Time in: 14:45 scoates 02:45 PM Patient charges- Angio tray pack, Navilyst 3mm J, Pulse Oximetry and ACIST tubing and transducer scoates 02:45 PM Case Delayed No scoates 02:51 PM Vitals capture started with the following parameters, Patient=Adult, Interval=5 min, Initial Oovypwox=869 mmHg, Deflation Rate=5 mmHg, Cuff placed on Left Arm 02:51 PM HR=77 bpm, MZOP=461/95 mmhg, SpO2=98.0 %, Resp=9 B/min, Comment=NSR 02:53 PM Recorded ECG: HR=75 Condition=Condition 1 02:53 PM Physician arrived 14:53 scoates 02:53 PM Meet and greet completed scoates 02:53 PM Sign in performed according to hospital policy. scoates 02:53 PM Procedure start 14:53 scoates 02:54 PM Time: 14:53 Oxygen on at 2 L/min per nasal cannula by Leah Kim RN scoates 02:54 PM Time: 14:54 Patient comfortable and pain free: Yes scoates 02:54 PM Time: 14:54LOC: 5 = Fully awake and oriented or at pre-proc level scoates 02:54 PM Time: 14:54 Versed 2 mg Intravenous Given by Leah Kim RN scoates 02:54 PM Time: 14:54 Fentanyl 50 mcg Intravenous Given by Leah Kim RN scoates 02:56 PM HR=73 bpm, TGZZ=262/82 mmhg, SpO2=95.0 %, Resp=10 B/min, Comment=NSR 02:59 PM Time: 14:59 Versed 2 mg Intravenous Given by Leah Kim RN scoates 02:59 PM Pressure channel 1 zero failed. 03:00 PM Pressure channel 1 zero failed. 03:00 PM Time: 15:00 Oxygen on at 4 L/min per nasal cannula by Leah Kim RN scoates 03:00 PM Pressure channel 1 zeroed. 03:01 PM HR=75 bpm, TTZV=564/89 mmhg, SpO2=94.0 %, Resp=23 B/min, Comment=NSR 03:06 PM HR=69 bpm, ZXFO=551/75 mmhg, SpO2=94.0 %, Resp=27 B/min, Comment=NSR 03:07 PM Time out performed according to hospital policy scoates 03:07 PM Time: 15:07 0.5 ml Lidocaine 2% to right radial Subcutaneous Given by Brian Odom MD, [facility] scoates 03:08 PM Access obtained by percutaneous puncture. 5Fr 10cm Terumo Glidesheath sheath placed in right Radial artery. [id number] scoates 03:09 PM Time: 15:09 Patient given 4,000 units Heparin, 200 mcg Nitroglycerin, and 2.5 mg Verapamil Intraarterial by Brian Odom MD, [facility] scoates 03:09 PM Time: 14:54 Patient comfortable and pain free: Yes scoates 03:09 PM Time: 14:54LOC: 4 = Oriented but drowsy scoates 03:09 PM 0.035 260cm Navilyst 3mmJ wire [id number] scoates 03:09 PM 5Fr TIG catheter inserted over the wire [facility] scoates 03:10 PM LCA angiography performed in multiple views. scoates 03:11 PM Recorded Pressure: Ao, HR=74, Condition=Condition 1 (Aorta) Ao 83/65/73 03:11 PM HR=72 bpm, JZGC=420/64 mmhg, SpO2=93.0 %, Resp=13 B/min, Comment=NSR 03:12 PM Catheter removed scoates 03:13 PM 5Fr FL3.5 catheter inserted over the wire [id number] scoates 03:13 PM LCA angiography performed in multiple views. scoates 03:14 PM Recorded Pressure: Ao, HR=70, Condition=Condition 1 (Aorta) Ao 78/60/67 03:14 PM Lesion found in LMCA. Pre Stenosis: 30 Pre DAVID Flow: scoates 03:15 PM NIBP STAT measurement started. 03:15 PM Catheter removed scoates 03:15 PM 5Fr 3DRC catheter inserted over the wire [id number] scoates 03:15 PM HR=68 bpm, OGDC=614/64 mmhg, SpO2=92.0 %, Resp=28 B/min, Comment=NSR 03:15 PM Lesion found in Proximal LAD. Pre Stenosis: 70 Pre DAVID Flow: scoates 03:16 PM Lesion found in Proximal Circumflex. Pre Stenosis: 85 Pre DAVID Flow: scoates 03:16 PM HR=67 bpm, JBWO=787/64 mmhg, SpO2=93.0 %, Resp=10 B/min, Comment=NSR 03:17 PM Catheter removed scoates 03:18 PM 5Fr IM catheter inserted over the wire [id number] [email or web address] 03:18 PM Time: 15:18 Oxygen on at 5 L/min per nasal cannula by Leah Kim RN [email or web address] 03:19 PM Recorded Pressure: Ao, HR=67, Condition=Condition 1 (Aorta) Ao 99/81/90 03:19 PM RCA angiography performed in multiple views. [email or web address] 03:20 PM Lesion found in Mid RCA. Pre Stenosis: 100 Pre DAVID Flow: [email or web address] 03:21 PM HR=61 bpm, RTYE=039/63 mmhg, SpO2=97.0 %, Resp=11 B/min, Comment=NSR 03:21 PM Catheter removed [email or web address] 03:21 PM 5Fr Pigtail catheter inserted over the wire [facility] [email or web address] 03:22 PM Catheter selectively placed in left ventricle [email or web address] 03:23 PM Recorded Pressure: LV, HR=67, Condition=Condition 1 (Left Ventricle) LV 92/10/12 03:24 PM Recorded Pressure: LV, Ao, HR=76, Condition=Condition 1 (Left Ventricle) LV 96/3/9, (Aorta) Ao 88/51/71 03:24 PM Catheter removed [email or web address] 03:25 PM .014 PT Graphix 182cm guide wire across target lesion- successful. reused? No [email or web address] 03:25 PM 6Fr JR 4 Runway guide catheter was used to cannulate the PCI vessel successfully. reused? No [email or web address] 03:25 PM Inflation device was opened. [email or web address] 03:26 PM Sheath exchanged for a 6 Fr 11 cm Terumo Glidesheath sheath [id number] [email or web address] 03:26 PM HR=66 bpm, VDDT=367/71 mmhg, SpO2=94.0 %, Resp=14 B/min, Comment=NSR 03:30 PM Time: 15:30 Aggrastat Bolus: 54 ml Intravenous Given by Leah Kim RN Persaud pump [email or web address] 03:30 PM Time: 15:30 Aggrastat 5mg/100ml 19.5 ml Intravenous Given by Evita Abrams RN Persaud pump [email or web address] 03:31 PM HR=65 bpm, AFFC=823/75 mmhg, SpO2=96.0 %, Resp=6 B/min, Comment=NSR 03:33 PM Pressure channel 1 zeroed. 03:36 PM HR=65 bpm, FGYR=829/76 mmhg, SpO2=97.0 %, Resp=11 B/min, Comment=NSR 03:40 PM Time: 15:40 Oxygen on at 2 L/min per nasal cannula by Leah Kim RN [email or web address] 03:41 PM Guide wire removed intact. [email or web address] 03:41 PM Guide catheter removed intact. [email or web address] 03:41 PM HR=66 bpm, FZJE=415/89 mmhg, SpO2=98.0 %, Resp=33 B/min, Comment=NSR 03:42 PM 6Fr RBR 3.5 Convey guide catheter was used to cannulate the PCI vessel successfully. reused? No [email or web address] 03:46 PM HR=67 bpm, VZQL=207/82 mmhg, SpO2=99.0 %, Resp=11 B/min, Comment=NSR 03:48 PM 2.5 mm x 12 mm Emerge Monorail balloon across target lesion- successful. reused? No [email or web address] 03:51 PM HR=68 bpm, HGUS=442/91 mmhg, SpO2=97.0 %, Resp=3 B/min, Comment=NSR 03:53 PM Balloon catheter removed intact. [email or web address] 03:53 PM Guide wire removed intact. [email or web address] 03:54 PM Guide catheter removed intact. [email or web address] 03:54 PM Time: 15:54 Aggrastat 5mg/100ml 19.5 ml Intravenous Given by Leah Kim RN dc'd Persaud pump [email or web address] 03:56 PM HR=69 bpm, VVOF=727/83 mmhg, Resp=10 B/min, Comment=NSR 03:57 PM Procedure completed at 15:57 [email or web address] 03:58 PM Sign out completed: Radiation Dose 797.48 mGy Fluoro Time: 12.7 Isovue 370 - 200ml contrast 123 ml given by Brian Odom MD, FACC. Complications: NoneCardiac Rehab Consult needed: Confirmed administered medications: Yes [email or web address] 03:58 PM Isovue 370 - 200ml,1 Bottle(s) used. [email or web address] 03:58 PM 10 ml air in Vasc Band. [email or web address] 03:58 PM Post ECG NSR [email or web address] 03:58 PM Post Blood Pressure 124/83 [email or web address] 03:59 PM 15:59 Post Pulses Bilateral DP \\T\\ PT 1+ [email or web address] 03:59 PM 15:59 Post Pulses Bilateral radial 2+ [email or web address] 03:59 PM Information taught Cardiac Cath and Vasc Band [email or web address] 04:00 PM Education needs Procedure, Plan of Care, and Disease Process [email or web address] 04:00 PM Learning barriers :None [email or web address] 04:00 PM Education Methods Verbal [email or web address] 04:00 PM Education evaluation Able to repeat information [email or web address] 04:00 PM Site status No bleeding/hematoma - Rt Wrist as reported by Mary Abel RT (R) at 16:00 [email or web address] 04:00 PM Delay to floor No [email or web address] 04:00 PM Family placed in not available. [email or web address] 04:00 PM Complications: None [email or web address] 04:00 PM Fluoro Time: 12.7 [email or web address] 04:00 PM Isovue 370 - 200ml contrast 123 ml given by Brian Odom MD, FACC. [email or web address] 04:00 PM Radiation Dose 797.48 mGy [email or web address] 04:06 PM Report given to Comfort AVERY Pt taken to 2NE Room #24. 16:06 [email or web address] 04:06 PM Patient out of room: 16:06 [email or web address] Complications Complication None None Hemodynamics Pressures Site Systolic/A Wave Diastolic/V Wave Mean AO 83 65 73 AO 78 60 67 AO 99 81 90 LV 92 10 12 LV 96 3 9 AO 88 51 71 Post Procedure Information Blood Pressure: 124/83 mmHg Rhythm: NSR Post procedural instructions were not given Closure Device Time Device Success/Fail 01/28/2017 3:57:00 PM Manual Compression Successful Site Checks Time Location Status Staff Sheath In? Note 04:00 PM Rt Wrist No bleeding/hematoma Mary Abel RT (R) Pulses Time Site Pre-Procedure Post-Procedure Note 01/28/2017 2:44:00 PM Bilateral DP \\T\\ PT 2+ 01/28/2017 2:44:00 PM Bilateral radial 2+ 3:59:00 PM Bilateral DP \\T\\ PT 1+ 3:59:00 PM Bilateral radial 2+ Updated by Linsey Espana, RT(R) on 01/28/2017 4:07:46 PM electronically signed on 01/28/2017 4:08:21 PM with status of Final
--- NOTE | 2017-01-28 16:19 | Invasive Diagnostic Lab ---
Name: Edgar Champion Date of Study: 01/28/2017 Date: 1955 Ht: 178.0 cm /70.1 in Medical Record#: [id number] Age: 61 Wt: 106. kg / 233.69 lb Account/Order#: [id number] Gender: Male BSA: 2.23 Order #: [id number] Fluoro Dose: 797 mGy BMI: 33.46 Procedure Physician: Brian Odom MD, FACC Referring MD: Referring MD: Procedures Performed: LEFT HEART CATH Indications: Cardiomyopathy Impressions: There is severe three vessel coronary artery disease. The left ventricle is normal and has abnormal contractility EF 25-30% Recommendations: Optimal medical therapy of patient's disease. Aggressive risk factor modification. Suggest patient have Elective coronary artery bypass surgery; if declined can proceed with high risk PCI. History/Risk Factors: SOB CARDIOMYOPATHY Hypertension CHF within 2 weeks Procedure Access obtained in the right Radial artery by percutaneous puncture Complications: None, None Contrast: Isovue 123ml Closure Device: Manual Compression Hemodynamics: Pressures Site Systolic/ A Wave Diastolic/ V Wave End Diastolic/ Mean HR AO 83 65 73 74 AO 78 60 67 70 AO 99 81 90 67 LV 92 10 12 67 LV 96 3 9 77 AO 88 51 71 67 LV Ventriculography Ejection Method: LV Gram Ejection Fraction: 25-30% Wall Motion: GRACE Anterobasal Moderate Hypokinesis Anterolateral Severe Hypokinesis Apical: Moderate Hypokinesis Inferoapical Severe Hypokinesis Inferobasal Severe Hypokinesis Coronary Dominance: Lesion Findings/Interventions * Left Main Coronary Artery There is a 30% stenosis in the LMCA. * Left Anterior Descending There is a 70% stenosis in the Proximal-mid LAD. * Circumflex There is a 85% stenosis in the Proximal Circumflex. * Right Coronary Artery There is a 100% stenosis in the Mid RCA with bridging collaterals. The lesion has no thrombus present. Left to right collaterals Updated by RT Nancy(R) on 01/28/2017 4:03:31 PM Brian Odom MD, FACC electronically signed on 01/28/2017 4:15:57 PM with status of Final
--- NOTE | 2017-01-28 16:55 | Cardiothoracic Consult Note ---
Date of Encounter: 01/28/17 Time of Encounter: 16:49 Assessment and Plan (1) Congestive heart failure Current Visit: Yes Status: Acute The assessment and plan as outlined above was discussed with the patient and/or family members who expressed understanding and agreement. All questions were answered. The patient has decreased ventricular function with triple vessel disease. He is a candidate for coronary artery bypass grafting. This would include a BARKER to the LAD and a graft to his circumflex. The right coronary artery may or may not be graftable. He would be at increased risk of surgery because of his decreased ventricular function. The procedure, its risks benefits and alternatives were explained. He wishes to consider. He also requests discharge so that he can talk it over with his work and HR department. He is quite noncompliant and if discharged may not return. We will need to monitor his creatinine and renal function. Qualifiers: Congestive heart failure type: systolic Congestive heart failure chronicity : acute on chronic Qualified Code(s): I50.23 - Acute on chronic systolic ( congestive) heart failure - History of Present Illness History of present illness: Mr. Champion is a 61 year old male History of present illness. The patient is a 61-year-old gentleman who presented with shortness of breath, orthopnea and dyspnea on exertion. He has no history of chest pain and no history of myocardial infarction. BNP was elevated at 461. Chest x-ray and CT scan revealed pulmonary edema. He had an echocardiogram in December which revealed an ejection fraction of 50% with mild mitral regurgitation. A limited echocardiogram done on this admission revealed an ejection fraction of 40%. A gated stress test revealed an ejection fraction of 28%. Cardiac catheterization done today revealed triple vessel disease. The LAD had a 70-80% proximal blockage. The circumflex had a 95% blockage. Both the circumflex and LAD were large vessels. The right coronary artery was 100% blocked, but was filled by [id number] and [id number] right collaterals. This was a faint vessel and may or may not be bypassable. Past medical history is notable for hypertension. No history of diabetes or hypercholesterolemia. The patient's creatinine was elevated today at 1.37. The patient was not taking any medications at home. He has no known allergies. Social history. He lives in [place] with his girlfriend. 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 He used to smoke one half pack of cigarettes per day, but quit 1 month ago. No history of COPD or oxygen usage. He occasionally drinks alcohol. Family history is positive for coronary artery disease, including a father who of a myocardial infarction. Review of systems is negative for stroke or TIA. Negative for saphenous vein varicosities or strippings. Past Med Surg Social Fam HX - Past Medical History Medical history: CHF, hypertension Psychiatric history: no psych history - Past Surgical History Surgical History: no surgical history - Social History Smoking Status: Former smoker (15 pack year history) Smokeless Tobacco Status: No Alcohol use: none Drug use: none - Family History Father Living Status: Age at : 79 Cause of : ND Hx Family Cardiac Disorders: Yes Hx Family Respiratory Disorders: No Hx Family Cancer: No Hx Family GI Disorders: No Hx Family Endocrine Disorder: No Hx Family Medical Disorders: Yes Medications and Allergies No Known Home Drugs 01/26/17 [History] Allergies No Known Allergies Allergy (Verified 01/26/17 08:55) All Systems Review: A 10-system review of systems was performed and is negative for pertinent findings except as documented above in the HPI. Physical Examination Vital Signs, Last 4 Hours Temp Pulse Resp BP Pulse Ox 01/28/17 16:22 97.4 F L 70 16 137/97 97 Pupils are equal, round and reactive to light and accommodation. He is edentulous. Neck is supple. Trachea in the midline. No thyromegaly or carotid bruits. Lungs are clear to percussion and auscultation. Heart is in a normal sinus rhythm. No murmurs, gallops or rubs. Abdomen is benign. No tenderness, rebound or guarding. No hepatosplenomegaly or masses. Extremities without edema. 1+ pulses. Cranial nerves, motor and sensory intact. He is awake, alert and oriented 3. Results 01/28/17 04:55 01/28/17 04:55 Lab Results, Last 24 hours 01/28/17 01/28/17 04:55 04:55 WBC 10.9 Hgb 15.8 Hct 47.3 Plt Count 243 Sodium 138 Potassium 4.3 Chloride 101 Carbon Dioxide 28 BUN 26 Creatinine 1.37 H Glucose 94 Calcium 9.0 Consult Discharge Plan - Plan Referrals: Mae Ken, BLOW MOLDER [Advanced Practice Nurse] - 02/07/17 10:30 am (located in [facility] #[phone] please give a days notice if you need to cancel appt Please expect a new pt packet in the mail to complete) NO,PCP [Primary Care Provider] -
[2017-01-29] MEDS: *HR* Enoxaparin 40 MG/0.4 ML SYRINGE SQ SCH (05:22)
[2017-01-29 06:57] LABS: Basophils # 0.1 K/mcL (0.0-0.2); Basophils % 0.7 %; Eosinophils # 0.4 K/mcL (0.0-0.6); Eosinophils % 4.4 %; Hematocrit 44.8 % (37.5-50.1); Immature Granulocytes % 0.5 % (0-4); Lymphocytes # 1.8 K/mcL (0.6-4.6); Lymphocytes % 18.6 %; Mean Corpuscular HGB Conc 33.5 g/dL (31.6-35.5); Mean Corpuscular Hemoglobin 30.2 pg (28.0-33.3); Mean Corpuscular Volume 90.1 fL (83.0-100.0); Mean Platelet Volume 10.8 fL (9.4-12.4); Monocytes # 1.1 K/mcL (0.0-1.3); Monocytes % 11.5 %; Neutrophils # 6.3 K/mcL (1.6-8.9); Platelet Count 246 K/mcL (140-400); Red Blood Count 4.97 M/mcL (4.19-5.50); Red Cell Distribution Width 14.3 % (11.5-14.5); Segmented Neutrophils % 64.3 %
[2017-01-29 07:07] LABS: BUN/Creatinine Ratio 20 (6-26); Blood Urea Nitrogen 25 mg/dL (8-26); Calcium 8.5 mg/dL (8.6-10.8); Carbon Dioxide 25 mEq/L (19-29); Chloride 104 mEq/L (98-109); Glucose 108 mg/dL (70-99); Osmolality,Calculated 291 (280-300); Potassium 4.2 mEq/L (3.5-4.5); Sodium 138 mEq/L (136-145); eGFR For African Americans > 60 (> 60); eGFR For Non-African Americans 59 (> 60)
--- NOTE | 2017-01-29 08:20 | Cardiothoracic Progress Note ---
Date of Encounter: 01/29/17 Time of Encounter: 08:18 - Assessment and plan (1) Congestive heart failure Current Visit: Yes Status: Acute The chest x-ray shows improved pulmonary edema. Kidney function is also improved. The patient is agreeable to open heart surgery. He will check with his work and HR department today. He may be amenable to staying and have the surgery prior to discharge. Qualifiers: Congestive heart failure type: systolic Congestive heart failure chronicity : acute on chronic Qualified Code(s): I50.23 - Acute on chronic systolic ( congestive) heart failure - Subjective Interval history: Patient has had no chest pain and no angina. He states that his shortness of breath is improved. Vital Signs, Last 4 Hours Temp Pulse Resp BP Pulse Ox 01/29/17 07:59 98.1 F 75 16 145/102 95 Oxgyen Flow Rate Oxygen Flow Rate (LPM) 2 Weight 01/27/17 01/28/17 01/29/17 23:59 23:59 23:59 Weight 105.2 kg 105.5 kg 102.6 kg Lungs are clear to percussion and auscultation. Heart is in a normal sinus rhythm. - Labs 01/29/17 06:17 01/29/17 06:17 Lab Results, Last 24 hours 01/29/17 01/29/17 06:17 06:17 WBC 9.8 Hgb 15.0 Hct 44.8 Plt Count 246 Sodium 138 Potassium 4.2 Chloride 104 Carbon Dioxide 25 BUN 25 Creatinine 1.25 Glucose 108 H Calcium 8.5 L Consult Discharge Plan - Plan Referrals: Mae Ken, PHOTOGRAPHIC SUPERVISOR [Advanced Practice Nurse] - 02/07/17 10:30 am (located in [facility] #[phone] please give a days notice if you need to cancel appt Please expect a new pt packet in the mail to complete) NO,PCP [Primary Care Provider] -
[2017-01-29] MEDS: Aspirin 81 MG TAB.CHEW PO SCH (09:11)
[2017-01-29] MEDS: Metoprolol XL (24 HR) Succ 25 MG TAB.ER.24H PO SCH (09:11)
--- NOTE | 2017-01-29 11:09 | Cardiology Progress Note ---
Date of Encounter: 01/29/17 Time of Encounter: 11:06 Assessment and Plan (1) CAD (coronary artery disease) Current Visit: Yes Status: Acute [facility] yesterday severe 3 vessel CAD--new diagnosis. 70% prox-mid LAD, 85% prox circ, 100% mid RCA with bridging collaterals, no thrombus present with left to right collaterals. Recommend CABG. Evaluated by CT surgery and pt is a candidate. Pt now agreeable to proceed, but waiting to hear from HR at his job to determine timing. Will continue to follow. Continue ASA, Statin, BB. Chest pain free currently. Qualifiers: Coronary Disease-Associated Artery/Lesion type: [place] artery [place] vs. transplanted heart: [place] heart Associated angina: without angina Qualified Code(s): I25.10 - Atherosclerotic heart disease of [place] coronary artery without angina pectoris (2) Congestive heart failure Current Visit: Yes Status: Acute Acute systolic exacerbation. New diagnosis. Symptoms of dyspnea and orthopnea, lower extremity edema. BNP 461, chest XR and CT shows findings of CHF. Limited echo ordered during this stay shows EF 40%, global hypokinesis with regional variations--mild-moderate LV systolic dysfunction. Mild concentric LVH , moderate-severely dilated LA. Gated EF on stress 28%. Symptoms now improved--appears near euvolemic on exam. Lasix and ARB were stopped due to rise in creatinine--now improved 1.25 today. Recommend Strict I/Os, daily weights, Na and fluid restriction. Qualifiers: Congestive heart failure type: systolic Congestive heart failure chronicity : acute on chronic Qualified Code(s): I50.23 - Acute on chronic systolic ( congestive) heart failure (3) Cardiomyopathy Current Visit: Yes Status: Acute Confirmed ischemic. [facility] yesterday severe 3 vessel CAD. 70% prox-mid LAD, 85% prox circ, 100% mid RCA with bridging collaterals, no thrombus present with left to right collaterals. Recommend CABG. Limited echo ordered during this stay shows EF 40%, global hypokinesis with regional variations--mild-moderate LV systolic dysfunction. Mild concentric LVH , moderate-severely dilated LA. Lasix and ARB stopped due to mild worsening renal function, which has now resolved. Continue BB. Recommend resuming LAURI-I/ARB at discharge if renal function will tolerate. Qualifiers: Cardiomyopathy type: ischemic Qualified Code(s): I25.5 - Ischemic cardiomyopathy Discussion w patient/family: The assessment and plan as outlined above was discussed with the patient and/or family members who expressed understanding and agreement. All questions were answered. Thank you for involving us in the care of your patient. Please call with any questions. I will discuss all the above with Dr. Barrera and make changes as needed. Subjective Principal diagnosis: CMP, CAD Interval history: [facility] yesterday revealed severe 3 vessel CAD, EF 25-30%. Recommended CABG--seen and evaluated by Dr. Ascencio. Pt now agreeable, but waiting to discuss with HR at his work to determine timing. Pt denies chest pain. Reports dyspnea and lower extremity edema has improved. Objective Vital Signs, Last 4 Hours Temp Pulse Resp BP Pulse Ox 01/29/17 07:59 98.1 F 75 16 145/102 95 Vital Signs Temp Pulse Resp BP Pulse Ox 01/29/17 11:05 98.4 F 72 18 189/82 95 01/29/17 07:59 98.1 F 75 16 145/102 95 01/29/17 04:00 97.6 F 80 16 118/81 01/29/17 00:00 97.6 F 75 17 136/86 01/28/17 22:00 98.6 F 86 17 110/59 98 01/28/17 20:00 97 01/28/17 16:52 72 16 135/96 97 01/28/17 16:37 97.4 F L 72 16 138/100 97 01/28/17 16:22 97.4 F L 70 16 137/97 97 01/28/17 11:59 97.5 F L 71 16 126/88 98 Intake and Output 01/28/17 01/29/17 01/29/17 23:59 07:59 15:59 Intake Total 0 / 0 300 / 300 600 / 600 Balance 0 / 0 300 / 300 600 / 600 Intake: Oral 0 / 0 300 / 300 600 / 600 Other: Meal Breakfast Percent of Meal Consumed 100% # Voids 1 2 Weight 102.6 kg Patient Weight 01/29/17 23:59 Weight 102.6 kg General: Conversant, No Apparent Distress HEENT: Atraumatic, Normocephaly, Mucus Membranes Moist Neck: No JVD, Normal carotid pulses Cardiac: Reg Rate and Rhythm, Normal S1 and S2, No Murmur Lungs: Normal Breath Sounds, No Wheeze, Rales, Rhonchi Neuro: Alert and responsive, No focal deficits noted Abdomen: Soft, Non-Tender Skin: Other (right radial access site healing well--no bleeding, hematoma or ecchymosis noted.) Musculoskeletal: No Chest Wall Tenderness Extremities: No Clubbing, No Cyanosis, No Edema, Normal Pulses Results 01/29/17 06:17 01/29/17 06:17 Lab Results 01/29/17 01/29/17 06:17 06:17 WBC 9.8 Hgb 15.0 Hct 44.8 Plt Count 246 Sodium 138 Potassium 4.2 Chloride 104 Carbon Dioxide 25 BUN 25 Creatinine 1.25 Glucose 108 H Calcium 8.5 L Short CBC 01/29/17 Range/Units 06:17 WBC 9.8 (4.3-11.1) K/mcL Hgb 15.0 (12.9-16.9) g/dL Hct 44.8 (37.5-50.1) % Plt Count 246 (140-400) K/mcL Neutrophils # 6.3 (1.6-8.9) K/mcL BMP 01/29/17 Range/Units 06:17 Sodium 138 (136-145) mEq/L Potassium 4.2 (3.5-4.5) mEq/L Chloride 104 (98-109) mEq/L Carbon Dioxide 25 (19-29) mEq/L BUN 25 (8-26) mg/dL Creatinine 1.25 (0.72-1.25) mg/dL Glucose 108 H (70-99) mg/dL Calcium 8.5 L (8.6-10.8) mg/dL Impressions Chest X-Ray 01/29/17 00:01 IMPRESSION: Improved interstitial pulmonary edema pattern compared to the previous study. D/ / Miguel Angel James MD / Miguel Angel James MD Interpreting Provider: Miguel Angel James MD Active Medications Aspirin (Aspirin) 81 mg PO DAILY [facility] Stop: 07/29/17 13:31 Last Admin: 01/29/17 09:11 Dose: 81 mg Enoxaparin Sodium (Lovenox) 40 mg SQ 0600 [facility] PRN Reason: Protocol Stop: 07/29/17 06:01 Last Admin: 01/29/17 05:22 Dose: 40 mg Metoprolol Succinate (Toprol Xl) 12.5 mg PO DAILY [facility] Stop: 07/30/17 09:01 Last Admin: 01/29/17 09:11 Dose: 12.5 mg Naloxone HCl (Narcan) 0.4 mg IVP Q2MIN PRN PRN Reason: Opioid Reversal Stop: 07/28/17 16:42 - Imaging and Cardiology Echo: report reviewed Cardiac cath: report reviewed - EKG Interpretation EKG results cardiology: other (24 hour tele AVG HR 73, SR, no significant pauses or arrhythmias.) Consult Discharge Plan - Plan Referrals: Mae Ken, ACID CONDITIONER [Advanced Practice Nurse] - 02/07/17 10:30 am (located in [facility] #[phone] please give a days notice if you need to cancel appt Please expect a new pt packet in the mail to complete) NO,PCP [Primary Care Provider] -
--- NOTE | 2017-01-29 15:44 | Event Note ---
Date of Encounter: 01/29/17 Time of Encounter: 15:39 The patient is still waiting to hear from his HR department. He is agreeable to be set up for surgery. We will schedule it for . Operative consent was obtained. Risks of surgery include , infection, stroke, bleeding, myocardial infarction, cardiac tamponade, acute or chronic renal or respiratory failure, acute or chronic graft closure, phrenic nerve injury, sternal dehiscence and recurrent congestive heart failure. The procedure, its risks benefits and alternatives were explained and he does wish to proceed. He has no questions. We will stop his Lovenox tomorrow and schedule him for surgery on .
[2017-01-29 16:22] LABS: Prothrombin Time 11.2 Seconds (9.4-12.1)
[2017-01-29 16:24] LABS: Activated Partial Thrombo Time 31.2 Seconds (26.0-36.0)
[2017-01-29] MEDS: Lisinopril 20 MG TABLET PO SCH (16:31)
[2017-01-29 16:47] LABS: Hemoglobin A1C 5.5 %
--- NOTE | 2017-01-29 16:54 | Internal Med Progress Note ---
Date of Encounter: 01/29/17 Time of Encounter: 16:51 - Assessment and plan (1) CAD (coronary artery disease) Current Visit: Yes Status: Acute Assessment and plan: patient had left heart catheterization yesterday. Noted that patient has triple vessel disease. We will continue management as per cardiology Cardiothoracic surgery on the board. Patient is scheduled for CABG on . Qualifiers: Coronary Disease-Associated Artery/Lesion type: [place] artery [place] vs. transplanted heart: [place] heart Associated angina: without angina Qualified Code(s): I25.10 - Atherosclerotic heart disease of [place] coronary artery without angina pectoris (2) Congestive heart failure Current Visit: Yes Status: Acute Assessment and plan: New onset of systolic heart failure. Will continue management as per cardiology Qualifiers: Congestive heart failure type: systolic Congestive heart failure chronicity : acute on chronic Qualified Code(s): I50.23 - Acute on chronic systolic ( congestive) heart failure (3) Essential hypertension Current Visit: Yes Status: Acute Assessment and plan: Continue with losartan and metoprolol. (4) DVT prophylaxis Current Visit: Yes Status: Acute Assessment and plan: On subcutaneous Lovenox. - Subjective Interval history: seen and examined. Patient is comfortable. Patient denies chest pain dizziness,diarrhea or abdominal pain. - Constitutional Vitals: Temp Pulse Resp BP Pulse Ox 97.7 F 72 18 133/80 96 01/29/17 16:38 01/29/17 16:38 01/29/17 16:38 01/29/17 16:38 01/29/17 16:38 General appearance: Present: A&O X 3, pleasant, no acute distress - Head Head exam: Present: atraumatic, normocephalic - Eye Eye exam: Present: PERRL, conjuntiva pink, sclera anicteric Pupils: Present: PERRL - Neck Neck exam general surgery: Present: supple, trachea midline. Absent: lymphadenopathy - Respiratory Respiratory exam: Present: CTAB. Absent: accessory muscle use, rales, rhonchi, wheezes - Cardiovascular Cardiovascular exam: Present: RRR, +S1, +S2. Absent: diastolic murmur, gallop, rubs, systolic murmur - GI/Abdominal GI/Abdominal exam: Present: normal bowel sounds, soft, no peritoneal signs. Absent: distended, tenderness - Extremities Exam Extremities exam: Present: warm, radial pulses palpable and symetrical. Absent : calf tenderness, cyanotic, pedal edema - Neurological Exam Neurological exam: Present: CN II-XII intact, oriented X3, no focal deficits. Absent: pronater drift, facial droop, speech deficit - Skin Skin exam: Present: dry, intact Internal Medicine: Result - Labs CBC & Chem 7: 01/29/17 06:17 01/29/17 06:17 Labs: Short CBC 01/29/17 Range/Units 06:17 WBC 9.8 (4.3-11.1) K/mcL Hgb 15.0 (12.9-16.9) g/dL Hct 44.8 (37.5-50.1) % Plt Count 246 (140-400) K/mcL Neutrophils # 6.3 (1.6-8.9) K/mcL BMP 01/29/17 06:17 Sodium 138 Potassium 4.2 Chloride 104 Carbon Dioxide 25 BUN 25 Creatinine 1.25 Glucose 108 H Calcium 8.5 L - ABG Interpretation ABG results: PT/INR, D-dimer PT 11.2 Seconds (9.4-12.1) 01/29/17 16:05 D-Dimer 1162 ng/mLFEU (0-500) H 01/26/17 09:14 - Impressions Impressions Chest X-Ray 01/29/17 00:01 IMPRESSION: Improved interstitial pulmonary edema pattern compared to the previous study. D/ / Miguel Angel James MD / Miguel Angel James MD Interpreting Provider: Miguel Angel James MD Consult Discharge Plan - Plan Referrals: Mae Ken, TRUCK CATERER [Advanced Practice Nurse] - 02/07/17 10:30 am (located in [facility] #[phone] please give a days notice if you need to cancel appt Please expect a new pt packet in the mail to complete) NO,PCP [Primary Care Provider] -
[2017-01-30] MEDS: *HR* Enoxaparin 40 MG/0.4 ML SYRINGE SQ SCH (05:55)
[2017-01-30 06:07] LABS: Basophils # 0.1 K/mcL (0.0-0.2); Basophils % 0.7 %; Eosinophils # 0.5 K/mcL (0.0-0.6); Eosinophils % 5.6 %; Hematocrit 46.3 % (37.5-50.1); Hemoglobin 15.1 g/dL (12.9-16.9); Immature Granulocytes % 0.5 % (0-4); Lymphocytes # 1.9 K/mcL (0.6-4.6); Lymphocytes % 23.4 %; Mean Corpuscular HGB Conc 32.6 g/dL (31.6-35.5); Mean Corpuscular Hemoglobin 29.4 pg (28.0-33.3); Mean Corpuscular Volume 90.1 fL (83.0-100.0); Mean Platelet Volume 10.3 fL (9.4-12.4); Monocytes # 1.1 K/mcL (0.0-1.3); Monocytes % 13.9 %; Neutrophils # 4.6 K/mcL (1.6-8.9); Platelet Count 233 K/mcL (140-400); Red Blood Count 5.14 M/mcL (4.19-5.50); Red Cell Distribution Width 14.1 % (11.5-14.5); Segmented Neutrophils % 55.9 %
[2017-01-30 06:19] LABS: BUN/Creatinine Ratio 19 (6-26); Blood Urea Nitrogen 21 mg/dL (8-26); Calcium 8.9 mg/dL (8.6-10.8); Carbon Dioxide 21 mEq/L (19-29); Chloride 109 mEq/L (98-109); Glucose 89 mg/dL (70-99); Osmolality,Calculated 290 (280-300); Potassium 4.6 mEq/L (3.5-4.5); Sodium 139 mEq/L (136-145); eGFR For African Americans > 60 (> 60); eGFR For Non-African Americans > 60 (> 60)
--- NOTE | 2017-01-30 08:42 | Cardiothoracic Progress Note ---
Date of Encounter: 01/30/17 Time of Encounter: 08:40 - Assessment and plan (1) CAD (coronary artery disease) Current Visit: Yes Status: Acute The patient is a 61-year-old hypertensive man with a strong family history of CAD. Cardiac catheterization revealed severe three-vessel CAD. The patient has been recommended for CABG. Currently he is scheduled for CABG [place] in by Dr. Lopez Ascencio. The assessment and plan as outlined above was discussed with the patient and/or family members who expressed understanding and agreement. All questions were answered. Qualifiers: Coronary Disease-Associated Artery/Lesion type: [place] artery [place] vs. transplanted heart: [place] heart Associated angina: without angina Qualified Code(s): I25.10 - Atherosclerotic heart disease of [place] coronary artery without angina pectoris - Subjective Interval history: Patient is resting comfortably in his hospital bed. He has no complaints of substernal chest pain or shortness of breath. Vital Signs, Last 4 Hours Temp Pulse Resp BP Pulse Ox 01/30/17 07:26 97.8 F 72 16 136/91 97 Oxgyen Flow Rate Oxygen Flow Rate (LPM) 0 Weight 01/28/17 01/29/17 01/30/17 23:59 23:59 23:59 Weight 105.5 kg 102.6 kg - Physical Examination General: Conversant, No Apparent Distress Neck: No JVD Cardiac: Reg Rate and Rhythm, Normal S1 and S2, No Murmur Lungs: Normal Breath Sounds, No Wheeze, Rales, Rhonchi Neuro: Alert and responsive, No focal deficits noted Vascular: Normal capillary refill Extremities: No Clubbing, No Cyanosis, No Edema - Labs 01/30/17 05:50 01/30/17 05:50 Lab Results, Last 24 hours 01/29/17 01/30/17 01/30/17 16:05 05:50 05:50 WBC 8.2 Hgb 15.1 Hct 46.3 Plt Count 233 INR 1.0 APTT 31.2 Sodium 139 Potassium 4.6 H Chloride 109 Carbon Dioxide 21 BUN 21 Creatinine 1.10 Glucose 89 Calcium 8.9 Consult Discharge Plan - Plan Referrals: Mae Ken, RENEWABLE ENERGY DIVISION MANAGER [Advanced Practice Nurse] - 02/07/17 10:30 am (located in [facility] #[phone] please give a days notice if you need to cancel appt Please expect a new pt packet in the mail to complete)
[2017-01-30] MEDS: Metoprolol XL (24 HR) Succ 25 MG TAB.ER.24H PO SCH (09:29)
[2017-01-30] MEDS: Aspirin 81 MG TAB.CHEW PO SCH (09:30)
[2017-01-30] MEDS: Lisinopril 20 MG TABLET PO SCH (09:30)
--- NOTE | 2017-01-30 10:32 | Internal Med Progress Note ---
Date of Encounter: 01/30/17 Time of Encounter: 10:31 - Assessment and plan (1) CAD (coronary artery disease) Current Visit: Yes Status: Acute Assessment and plan: patient had left heart catheterization yesterday. Noted that patient has triple vessel disease. We will continue management as per cardiology Cardiothoracic surgery on the board. Patient is scheduled for CABG on . 01/30/2017. Noted that patient is scheduled for CABG tomorrow. We will continue to monitor. I understand cardiology will be taking care of patients FMLA paperwork Qualifiers: Coronary Disease-Associated Artery/Lesion type: [place] artery [place] vs. transplanted heart: [place] heart Associated angina: without angina Qualified Code(s): I25.10 - Atherosclerotic heart disease of [place] coronary artery without angina pectoris (2) Congestive heart failure Current Visit: Yes Status: Acute Assessment and plan: New onset of systolic heart failure. Will continue management as per cardiology Qualifiers: Congestive heart failure type: systolic Congestive heart failure chronicity : acute on chronic Qualified Code(s): I50.23 - Acute on chronic systolic ( congestive) heart failure (3) Essential hypertension Current Visit: Yes Status: Acute Assessment and plan: Continue with losartan and metoprolol. (4) DVT prophylaxis Current Visit: Yes Status: Acute Assessment and plan: On subcutaneous Lovenox. - Subjective Interval history: seen and examined. Patient is comfortable. Patient denies chest pain dizziness,diarrhea or abdominal pain. 01/30/2017. Patient seen and examined. Chart reviewed. Patient denies any chest pain, dizziness, short of breath or diarrhea. - Constitutional Vitals: Temp Pulse Resp BP Pulse Ox 97.8 F 72 16 136/91 97 01/30/17 07:26 01/30/17 07:26 01/30/17 07:26 01/30/17 07:26 01/30/17 08:00 General appearance: Present: A&O X 3, pleasant, no acute distress - Head Head exam: Present: atraumatic, normocephalic - Eye Eye exam: Present: PERRL, conjuntiva pink, sclera anicteric Pupils: Present: PERRL - Neck Neck exam general surgery: Present: supple, trachea midline. Absent: lymphadenopathy - Respiratory Respiratory exam: Present: CTAB. Absent: accessory muscle use, rales, rhonchi, wheezes - Cardiovascular Cardiovascular exam: Present: RRR, +S1, +S2. Absent: diastolic murmur, gallop, rubs, systolic murmur - GI/Abdominal GI/Abdominal exam: Present: normal bowel sounds, soft, no peritoneal signs. Absent: distended, tenderness - Extremities Exam Extremities exam: Present: warm, radial pulses palpable and symetrical. Absent : calf tenderness, cyanotic, pedal edema - Neurological Exam Neurological exam: Present: CN II-XII intact, oriented X3, no focal deficits. Absent: pronater drift, facial droop, speech deficit - Skin Skin exam: Present: dry, intact Internal Medicine: Result - Labs CBC & Chem 7: 01/30/17 05:50 01/30/17 05:50 Labs: Short CBC 01/30/17 Range/Units 05:50 WBC 8.2 (4.3-11.1) K/mcL Hgb 15.1 (12.9-16.9) g/dL Hct 46.3 (37.5-50.1) % Plt Count 233 (140-400) K/mcL Neutrophils # 4.6 (1.6-8.9) K/mcL BMP 01/30/17 05:50 Sodium 139 Potassium 4.6 H Chloride 109 Carbon Dioxide 21 BUN 21 Creatinine 1.10 Glucose 89 Calcium 8.9 - ABG Interpretation ABG results: PT/INR, D-dimer PT 11.2 Seconds (9.4-12.1) 01/29/17 16:05 D-Dimer 1162 ng/mLFEU (0-500) H 01/26/17 09:14 - Impressions Impressions Chest X-Ray 01/29/17 00:01 IMPRESSION: Improved interstitial pulmonary edema pattern compared to the previous study. D/ / Miguel Angel James MD / Miguel Angel James MD Interpreting Provider: Miguel Angel James MD Consult Discharge Plan - Plan Referrals: Mae Ken, LOG BUYER [Advanced Practice Nurse] - 02/07/17 10:30 am (located in [facility] #[phone] please give a days notice if you need to cancel appt Please expect a new pt packet in the mail to complete)
--- NOTE | 2017-01-30 10:52 | Anesthesia Evaluation PreOp ---
Date of Encounter: 01/31/17 Time of Encounter: 07:14 - Past History Planned Operation: CABG Cardiac History: CHF (acute on chronic), HTN Pulmonary History: Former smoker (quit one month ago, 15 pk/yr history) ADVENTURE GUIDE History: Denies Any Significant HX Other Medical History: Denies Any Significant HX Anesthesia History: No Prior Anesthetic Complications (denies PSH) Alcohol Use: none Drug use: none Medications and Allergies No Known Home Drugs 01/26/17 [History] Allergies No Known Allergies Allergy (Verified 01/26/17 08:55) - Meds/Allergy Pre-op Review Medications Reviewed: Yes Allergies Reviewed: Yes Beta Blockers on Current Med List: No Anesthesia Results - Labs 01/31/17 05:28 01/31/17 05:28 - Imaging Additional studies: Echo shows EF 40%, Stress test EF 28%. Cath shows 3 vessel disease Anesthesia Exam Selected Entries 01/31/17 05:00 Temperature 98.2 F Pulse Rate 74 Respiratory Rate 17 Blood Pressure 141/100 O2 Sat by Pulse Oximetry 97 Height: 70in Weight: 106kg NPO (# of Hours): 8 Pain Scale: 0 Pain Scale Used: Numeric (1 - 10) - HEENT Pupil (Motor): EOMI Mallampati: I Teeth: Edentulous Oral Opening: Greater than 3 - ADVENTURE GUIDE LOC: Oriented ADVENTURE GUIDE Motor: Normal RUE, Normal LUE, Normal RLE, Normal LLE, Normal Face ADVENTURE GUIDE Sensory: Normal: RUE, LUE, RLE, LLE, Face - Cardiac Rhythm: Regular Murmur: None - Pulmonary Breath Sounds: bilateral Clear Respiratory Effort: Symmetrical Anesthesia Assess/Plan ASA Score: 3 Modified Jaylen Scale for Level of Consciousness: Cooperative, oriented, and tranquil Anesthetic Plan: General Monitoring Plan: A-Line, PAC, SIM Recovery Plan: ICU (Discussed risks of GA, lines, blood and SIM. Knows of need for ICU. Questions ansered and agrees to proceed.)
--- NOTE | 2017-01-30 11:21 | Cardiology Progress Note ---
Date of Encounter: 01/30/17 Time of Encounter: 11:20 Assessment and Plan (1) CAD (coronary artery disease) Current Visit: Yes Status: Acute [facility] severe 3 vessel CAD--new diagnosis. 70% prox-mid LAD, 85% prox circ, 100% mid RCA with bridging collaterals, no thrombus present with left to right collaterals. Recommend CABG. Evaluated by CT surgery and pt is a candidate. Pt now agreeable to proceed, scheduled for tomorrow. Continue ASA, Statin, BB, LAURI-I. Cardiology is signing off. Reconsult PRN. Follow-up as outpt in 4-6 weeks--will coordinate. Qualifiers: Coronary Disease-Associated Artery/Lesion type: [place] artery [place] vs. transplanted heart: [place] heart Associated angina: without angina Qualified Code(s): I25.10 - Atherosclerotic heart disease of [place] coronary artery without angina pectoris (2) Congestive heart failure Current Visit: Yes Status: Acute Acute systolic exacerbation. New diagnosis. Symptoms of dyspnea and orthopnea, lower extremity edema. BNP 461, chest XR and CT shows findings of CHF. Limited echo ordered during this stay shows EF 40%, global hypokinesis with regional variations--mild-moderate LV systolic dysfunction. Mild concentric LVH , moderate-severely dilated LA. Gated EF on stress 28%. Symptoms now improved--appears near euvolemic on exam. Lasix was stopped due to rise in creatinine--now improved 1.10 today. Recommend Strict I/Os, daily weights, Na and fluid restriction. Qualifiers: Congestive heart failure type: systolic Congestive heart failure chronicity : acute on chronic Qualified Code(s): I50.23 - Acute on chronic systolic ( congestive) heart failure (3) Cardiomyopathy Current Visit: Yes Status: Acute Confirmed ischemic. [facility] severe 3 vessel CAD. 70% prox-mid LAD, 85% prox circ, 100% mid RCA with bridging collaterals, no thrombus present with left to right collaterals. CABG tomorrow. Limited echo ordered during this stay shows EF 40%, global hypokinesis with regional variations--mild-moderate LV systolic dysfunction. Mild concentric LVH , moderate-severely dilated LA. Continue BB and LAURI-I. Qualifiers: Cardiomyopathy type: ischemic Qualified Code(s): I25.5 - Ischemic cardiomyopathy Discussion w patient/family: The assessment and plan as outlined above was discussed with the patient and/or family members who expressed understanding and agreement. All questions were answered. Thank you for involving us in the care of your patient. Please call with any questions. I will discuss all the above with Dr. Barrera and make changes as needed. Subjective Principal diagnosis: CMP, CAD Interval history: No acute complaints this AM--denies chest pain or dyspnea. CABG planned for tomorrow. Objective Vital Signs, Last 4 Hours Temp Pulse Resp BP Pulse Ox 01/30/17 08:00 97 01/30/17 07:26 97.8 F 72 16 136/91 97 Vital Signs Temp Pulse Resp BP Pulse Ox 01/30/17 08:00 97 01/30/17 07:26 97.8 F 72 16 136/91 97 01/30/17 04:21 98.3 F 69 17 126/89 96 01/29/17 21:35 98.6 F 81 16 132/91 97 01/29/17 20:35 98 01/29/17 16:38 97.7 F 72 18 133/80 96 Intake and Output 01/29/17 01/30/17 01/30/17 23:59 07:59 15:59 Intake Total 600 / 600 720 / 720 Balance 600 / 600 720 / 720 Intake: Oral 600 / 600 720 / 720 Other: Meal Dinner Breakfast Percent of Meal Consumed 100% 100% # Voids 1 General: Conversant, No Apparent Distress HEENT: Atraumatic, Normocephaly, Mucus Membranes Moist Neck: No JVD, Normal carotid pulses Cardiac: Reg Rate and Rhythm, Normal S1 and S2, No Murmur Lungs: Normal Breath Sounds, No Wheeze, Rales, Rhonchi Neuro: Alert and responsive, No focal deficits noted Abdomen: Soft, Non-Tender Skin: No rashes noted on visualized skin Musculoskeletal: No Chest Wall Tenderness Extremities: No Clubbing, No Cyanosis, No Edema, Normal Pulses Results 01/30/17 05:50 01/30/17 05:50 Lab Results 01/29/17 01/30/17 01/30/17 16:05 05:50 05:50 WBC 8.2 Hgb 15.1 Hct 46.3 Plt Count 233 INR 1.0 APTT 31.2 Sodium 139 Potassium 4.6 H Chloride 109 Carbon Dioxide 21 BUN 21 Creatinine 1.10 Glucose 89 Calcium 8.9 Short CBC 01/30/17 Range/Units 05:50 WBC 8.2 (4.3-11.1) K/mcL Hgb 15.1 (12.9-16.9) g/dL Hct 46.3 (37.5-50.1) % Plt Count 233 (140-400) K/mcL Neutrophils # 4.6 (1.6-8.9) K/mcL BMP 01/30/17 Range/Units 05:50 Sodium 139 (136-145) mEq/L Potassium 4.6 H (3.5-4.5) mEq/L Chloride 109 (98-109) mEq/L Carbon Dioxide 21 (19-29) mEq/L BUN 21 (8-26) mg/dL Creatinine 1.10 (0.72-1.25) mg/dL Glucose 89 (70-99) mg/dL Calcium 8.9 (8.6-10.8) mg/dL Impressions Chest X-Ray 01/29/17 00:01 IMPRESSION: Improved interstitial pulmonary edema pattern compared to the previous study. D/ / Miguel Angel James MD / Miguel Angel James MD Interpreting Provider: Miguel Angel James MD Active Medications Aspirin (Aspirin) 81 mg PO DAILY JOSELUIS Stop: 07/29/17 13:31 Last Admin: 01/30/17 09:30 Dose: 81 mg Chlorhexidine Gluconate (Chlorhexidine Rinse) 15 ml MM BID JOSELUIS Stop: 01/31/17 09:01 Cefazolin Sodium 2,000 mg/ (Dextrose) 100 mls @ 200 mls/hr IVPB PREOP ONE PRN Reason: Protocol Stop: 01/31/17 10:29 Lisinopril (Zestril) 20 mg PO DAILY JOSELUIS PRN Reason: Protocol Stop: 07/31/17 13:31 Last Admin: 01/30/17 09:30 Dose: 20 mg Metoprolol Succinate (Toprol Xl) 12.5 mg PO DAILY JOSELUIS Stop: 07/30/17 09:01 Last Admin: 01/30/17 09:29 Dose: 12.5 mg Naloxone HCl (Narcan) 0.4 mg IVP Q2MIN PRN PRN Reason: Opioid Reversal Stop: 07/28/17 16:42 Simvastatin (Zocor) 40 mg PO HS ONE Stop: 01/30/17 21:01 - Imaging and Cardiology Echo: report reviewed Cardiac cath: report reviewed - VTE Documentation of Mechanical Device: Graduated compression elastic hosiery Consult Discharge Plan - Plan Referrals: Mae Ken, LINUX KERNEL DEVELOPER [Advanced Practice Nurse] - 02/07/17 10:30 am (located in [facility] #[phone] please give a days notice if you need to cancel appt Please expect a new pt packet in the mail to complete)
[2017-01-30] MEDS: Chlorhexidine Rinse 15 ML MOUTHWASH MM SCH (20:43)
[2017-01-31 05:44] LABS: Bilirubin,Urine Negative (Negative); Blood,Urine Negative (Negative); Clarity,Urine Clear (Clear); Color,Urine Yellow (Yellow); Glucose,Urine (UA) Normal (Normal); Ketones,Urine Negative (Negative); Leukocyte Esterase,Urine Trace (Negative); Nitrite,Urine Negative (Negative); PH,Urine 6.5 pH Units (5.0-8.0); Protein,Urine Negative (Neg-Trace); Specific Gravity,Urine 1.012 (1.010-1.025); Urobilinogen,Urine Normal (Normal)
[2017-01-31 05:45] LABS: Bacteria,Urine None Seen per hpf (None-Few); Hyaline Casts,Urine None Seen per lpf (None-Few); RBC,Urine 0-3 per hpf (0-3); Squamous Epithelial Cell,Urine Many per lpf (None-Few)
[2017-01-31] MEDS: Metoprolol XL (24 HR) Succ 25 MG TAB.ER.24H PO SCH (06:18)
[2017-01-31] MEDS: Aspirin 81 MG TAB.CHEW PO SCH (06:18)
[2017-01-31] MEDS: Chlorhexidine Rinse 15 ML MOUTHWASH MM SCH ×2 (06:18→21:39)
[2017-01-31 06:20] LABS: Basophils # 0.1 K/mcL (0.0-0.2); Basophils % 0.8 %; Eosinophils # 0.4 K/mcL (0.0-0.6); Eosinophils % 5.8 %; Hematocrit 45.5 % (37.5-50.1); Hemoglobin 15.3 g/dL (12.9-16.9); Immature Granulocytes % 0.4 % (0-4); Lymphocytes # 1.9 K/mcL (0.6-4.6); Lymphocytes % 26.2 %; Mean Corpuscular HGB Conc 33.6 g/dL (31.6-35.5); Mean Corpuscular Hemoglobin 30.3 pg (28.0-33.3); Mean Corpuscular Volume 90.1 fL (83.0-100.0); Mean Platelet Volume 10.6 fL (9.4-12.4); Monocytes # 0.7 K/mcL (0.0-1.3); Monocytes % 9.2 %; Neutrophils # 4.3 K/mcL (1.6-8.9); Platelet Count 239 K/mcL (140-400); Red Blood Count 5.05 M/mcL (4.19-5.50); Red Cell Distribution Width 14.1 % (11.5-14.5); Segmented Neutrophils % 57.6 %
[2017-01-31 06:34] LABS: Alanine Aminotransferase 26 Units/L (0-55); Albumin 3.4 g/dL (3.5-5.0); Alkaline Phosphatase 64 Units/L (38-126); Aspartate Amino Transferase 29 Units/L (5-34); BUN/Creatinine Ratio 21 (6-26); Bilirubin,Total 0.7 mg/dL (0.2-1.2); Blood Urea Nitrogen 25 mg/dL (8-26); Calcium 9.2 mg/dL (8.6-10.8); Carbon Dioxide 23 mEq/L (19-29); Chloride 106 mEq/L (98-109); Globulin 3.5 g/dL (2.4-3.5); Glucose 87 mg/dL (70-99); Osmolality,Calculated 288 (280-300); Potassium 4.9 mEq/L (3.5-4.5); Sodium 137 mEq/L (136-145); Total Protein 6.9 g/dL (6.0-8.3); eGFR For African Americans > 60 (> 60); eGFR For Non-African Americans > 60 (> 60)
[2017-01-31] MEDS ORDERED: *HR* Etomidate 20 MG/10 ML AMPUL IVP ONE (06:42)
[2017-01-31] MEDS ORDERED: *HR* Rocuronium Bromide 50 MG/5 ML VIAL ONE ×2 (06:42→09:52)
[2017-01-31] MEDS ORDERED: Famotidine 20 MG/2 ML VIAL ONE (06:42)
[2017-01-31] MEDS ORDERED: *HR* Phenylephrine 10 MG/ML VIAL ONE (06:42)
[2017-01-31] MEDS ORDERED: *HR* Norepinephrine 4 MG/4 ML VIAL IVC ONE (06:42)
[2017-01-31] MEDS ORDERED: Protamine Sulfate 250 MG/25 ML VIAL IVP ONE (06:43)
[2017-01-31] MEDS ORDERED: Tranexamic Acid 1,000 MG/10 ML VIAL ONE ×2 (06:43→09:49)
[2017-01-31] MEDS ORDERED: Nitroglycerin 25 MG/250 ML INFUS..BTL IVC ONE ×2 (06:56→11:13)
[2017-01-31] MEDS ORDERED: NiCARdipine 2.5 MG/10 ML Syringe IVPB ONE (06:57)
[2017-01-31] MEDS ORDERED: *HR* Midazolam HCl 5 MG/5 ML VIAL IVP ONE (07:02)
[2017-01-31] MEDS ORDERED: *HR* FentaNYL (PF) 1,000 MCG/20 ML VIAL ONE (07:03)
[2017-01-31] MEDS ORDERED: Verapamil 5 MG/2 ML VIAL ONE (07:11)
--- NOTE | 2017-01-31 08:48 | Anesthesia Procedures ---
Date of Encounter: 01/31/17 Time of Encounter: 08:45 Procedures: Anesthesia - Arterial Line Consent obtained: written consent Time out performed: Yes Sedation: Versed (mg): 2 Sedation: Fentanyl (mcg): 100 Supplemental Oxygen via Nasal Cannula (L/min): 2 Local Anesthetic: Lidocaine 1% Amount of Anesthetic used (mls): 1 Size (Gauge): 20 Length (inches): 5 Technique Used: sterile prep, guide wire technique, direct puncture technique Post-Procedure: line taped into place, dry sterile dressing placed Patient tolerated procedure: well, no complications Complications: none Site: Radial L (attempt x 1, easy) - Central Line Placement Right IJ Consent obtained: written consent Time out performed: Yes Patient placed on monitor/pulse ox: Yes prep: mask, gown, gloves Central line prep: Chlorhexidine scrub Ultrasound used for placement: Yes Technique: Seldinger Lumen Inserted: Introducer Post procedure: sutured in place, good blood return, all ports aspirated, flushed, capped, sterile dressing applied Patient tolerated procedure: well, no complications Complications: none Comments: attempt x 1, easy. Harlan placed, unable to wedge after 2 attempts. Patient does develop ectopy with swan placement so decide not to try additional attempts on wedge. Leave catheter at 60cm
[2017-01-31] MEDS ORDERED: Albumin Human 25% 25 GM/100 ML IV.SOLN IV ONE (08:51)
[2017-01-31] MEDS ORDERED: Mannitol 25% vial 12.5 GM/50 ML VIAL IVP ONE (08:51)
[2017-01-31] MEDS ORDERED: *HR* Phenylephrine 10 MG/ML VIAL IVC ONE (08:51)
[2017-01-31] MEDS ORDERED: Lidocaine 2% Syringe 100 MG/5 ML IV ONE (08:51)
[2017-01-31] MEDS ORDERED: *HR* Magnesium Sulfate 2 GM/50 ML PIGGYBACK IVPB ONE (08:51)
[2017-01-31] MEDS ORDERED: *HR* Heparin 10,000 UNIT/10 ML VIAL IV ONE (08:51)
[2017-01-31] MEDS ORDERED: *HR* Dextrose 50 % in Water (Syg) 50 ML SYRINGE ONE (09:28)
[2017-01-31] MEDS ORDERED: ceFAZolin 2,000 MG in D5% in Water 100 ML IVPB ONE (10:00)
[2017-01-31] MEDS ORDERED: Albumin Human 5% 25.0 GM/500 ML VIAL ONE (10:07)
[2017-01-31] MEDS ORDERED: 0.9 % Sodium Chloride 500 ML ONE (11:13)
[2017-01-31] MEDS ORDERED: Albumin Human 5% 50.0 GM/1,000 ML VIAL ONE (11:14)
[2017-01-31] MEDS ORDERED: Ondansetron 4 MG/2 ML VIAL IVP PRN (12:31)
[2017-01-31] MEDS ORDERED: *HR* Dextrose 50 % in Water (Syg) 50 ML SYRINGE IVP PRN ×2 (12:31→17:43)
[2017-01-31] MEDS ORDERED: Insulin Regular, Human 100 UNIT/ML IV PRN (12:31)
[2017-01-31] MEDS ORDERED: Potassium Chloride 40 MEQ/200 ML BAG IVPB PRN (12:31)
[2017-01-31] MEDS ORDERED: Naloxone 0.4 MG/ML INJ IVP PRN (12:31)
--- NOTE | 2017-01-31 12:33 | Operative Note ---
Date of procedure: 01/31/17 Procedure in Detail: Preoperative diagnosis. Coronary artery disease. Postoperative diagnosis. Same. Procedures. Coronary artery bypass grafting 2 with saphenous veins to the LAD and obtuse marginal branch of the circumflex. Surgeon. Dr. Lopez Ascencio. Supervisor [employer] Operations. [place]. Anesthesia. Dr. Bharath Rivera. The patient is a 61- year-old gentleman who does have a history of smoking and does not see a primary care physician. He was admitted with congestive heart failure and severe hypertension. Ejection fraction was 25-30%. Cardiac catheterization revealed severe coronary artery disease and he was referred for surgery. He was brought to the operating room where he underwent a general anesthetic. He was prepped and draped in standard fashion. The left greater saphenous vein was harvested from the left ankle to the left mid thigh. This was done through 2 small incisions using the scope. These incisions were subsequently closed with a deep layer of 0 Vicryl and a 2-0 Vicryl subcuticular stitch. A standard median sternotomy was performed. The left internal mammary artery retractor was inserted and the left internal mammary artery was harvested in standard fashion using the Bovie electrocoagulation. This was a small vessel. It was quite adherent to the rib cage. It was also attached to to osteophytes at the superior end of the sternum. At this point the patient was heparinized. Mammary pedicle was harvested. Tonsil clamp was placed distally and was divided with the Metzenbaum scissors. Distal end was tied off with a 2-0 silk suture. The proximal end was trimmed and brought into the wound. It had poor flow and it appeared that the distal end was dissected. We did cut off several centimeters distally and were able to obtain a good lumen. This was dilated with a 1-1/2 mm probe and had good flow. Following this, mammary retractor was removed and the standard sternal board handler was inserted. Pericardium was opened in the midline and suspended with 2-0 silk stay sutures. Double purse string of 20 S[place] was placed in the aorta for the aortic cannulation site. A pursestring of 20 Surgilon was placed in the right atrial appendage for venous uptake. The aorta was cannulated without difficulty. 2 stage venous uptake cannula was inserted through the right atrial appendage. Purse string a 4-0 silk was placed in the aorta and the cardioplegia needle was inserted through here. This was also used is an active and passive aortic vent. The patient was placed on cardiopulmonary bypass and cooled to 34.3. At this point, the aorta was crossclamped and a liter of antegrade cardioplegia was given. Topical cooling with iced saline slush was also used. Attention was first turned to the circumflex. The obtuse marginal branch was dissected free with the [place] blade and opened with a [place] blade and the Mcallister scissors. This had a lumen of 1/2 mm and was relatively free of disease. A standard end-to-side anastomosis was constructed using the saphenous vein and a 7-0 Prolene. When this is completed, the patient received an additional dose of antegrade cardioplegia and topical cooling. The LAD was dissected free with the [place] blade and opened with a [place] blade and the Mcallister scissors. This had a lumen of 1/2 mm and was relatively free of disease. A standard end-to-side anastomosis was constructed using the mammary artery and a 7-0 Prolene. When this is completed, the previously placed bulldog clamp was removed. The hemostasis was poor. Several additional sutures were placed at the tip, but the bleeding continued. I decided that we needed to redo the distal anastomosis. The patient received antegrade cardioplegia. The anastomosis was taken down with a #11 blade. The distal BARKER was dissected and as we continued to cut proximally the dissection continued to propagate proximally. At this point, we elected to take an additional piece of saphenous vein from the left leg. Proximally a tonsil clamp was placed across the BARKER. This was cut off. Proximally was tied off with a 2-0 silk suture ligature and a 2-0 silk suture. During this interval the patient received antegrade cardioplegia and approximately 15 minute intervals. The piece of saphenous vein was used and a standard end side anastomosis was constructed using a 7-0 Prolene. When this is completed, the cross-clamp was removed. Total cross-clamp time was 70 minutes. A side-biting clamp was placed on the aorta and the cardioplegia needle was removed. 2 holes were made in the aorta using the [place] blade and the 4.4 mm aortic punch. 2 proximal anastomoses were constructed in standard fashion using the saphenous veins and 5-0 Prolene's. The circumflex anastomosis was superior and the LAD anastomosis was inferior. When this is completed, the side-biting clamp was removed. The grafts were de- aired using a #25-gauge needle and the previously placed bulldog clamps were removed. Distal anastomoses were inspected and found to be hemostatic. Proximal anastomoses were marked with a marker from [employer] sponge. A pair of ventricular pacing wires was left. A 32 right angle chest tube into the left pleural space. A 32 right angle chest tube into the pericardial well. A 42 mediastinal chest tube. The patient was weaned from bypass and decannulated. An additional suture of 4-0 Prolene was placed around the right atrial appendage. Some fibrillar was placed on some adventitial bleeding. After this, the hemostasis was good and the hemodynamics were good. Pericardium was loosely closed with interrupted 2-0 silk sutures. Sternum was closed with #7 sternal wires in simple and [id number] fashion. Fascia was run with #1 Vicryl. Subcutaneous tissues with a 2-0 Vicryl. Skin was closed with a 3-0 Vicryl subcuticular stitch. The patient tolerated the procedure well and was returned to intensive care unit in satisfactory and stable condition. Total bypass time 100 minutes. Total cross-clamp time 70 minutes. Even cooled to 34.3.
[2017-01-31] MEDS: Norepinephrine 4 MG in D5% in Water 250 ML IVC SCH ×2 (12:41→16:51)
[2017-01-31 12:54] LABS: Basophils # 0.1 K/mcL (0.0-0.2); Basophils % 0.3 %; Eosinophils # 0.2 K/mcL (0.0-0.6); Eosinophils % 1.3 %; Hematocrit 32.3 % (37.5-50.1); Immature Granulocytes % 0.9 % (0-4); Lymphocytes # 1.7 K/mcL (0.6-4.6); Lymphocytes % 9.6 %; Mean Corpuscular HGB Conc 32.8 g/dL (31.6-35.5); Mean Corpuscular Hemoglobin 30.1 pg (28.0-33.3); Mean Corpuscular Volume 91.8 fL (83.0-100.0); Mean Platelet Volume 9.9 fL (9.4-12.4); Monocytes # 1.4 K/mcL (0.0-1.3); Monocytes % 8.1 %; Neutrophils # 13.9 K/mcL (1.6-8.9); Platelet Count 142 K/mcL (140-400); Red Blood Count 3.52 M/mcL (4.19-5.50); Segmented Neutrophils % 79.8 %
[2017-01-31] MEDS: niCARdipine 40 MG/200 ML MLS IVC ONE ×2 (12:55→15:21)
[2017-01-31 12:57] LABS: ABG Base Excess -0.5 mEq/L (-2.0 to 3.0); ABG HCO3 26.2 mEQ/L (21-27); ABG Oxygen Saturation 97 % (95-98); ABG PCO2 52 mmHg (35-45); ABG PH 7.31 pH Units (7.32-7.45); ABG PO2 95 mmHg (85-104); ABG TCO2 27.8 mEq/L (20-26); Hemoglobin 10.6 g/dL (12.9-16.9)
[2017-01-31 12:59] LABS: Blood Gas FiO2 50 %; Blood Gas PEEP 5 cm H2O; Blood Gas Respiration Rate 12; Blood Gas VT 700 cc
[2017-01-31] MEDS: *HR* Morphine 2 MG/ML SYRINGE IVP PRN ×3 (13:02→15:40)
[2017-01-31 13:06] LABS: BUN/Creatinine Ratio 17 (6-26); Blood Urea Nitrogen 20 mg/dL (8-26); Carbon Dioxide 25 mEq/L (19-29); Chloride 107 mEq/L (98-109); Glucose 72 mg/dL (70-99); Magnesium 2.8 mg/dL (1.6-2.6); Osmolality,Calculated 285 (280-300); Potassium 4.4 mEq/L (3.5-4.5); eGFR For African Americans > 60 (> 60); eGFR For Non-African Americans > 60 (> 60)
[2017-01-31 13:07] LABS: Calcium 7.7 mg/dL (8.6-10.8); INR 1.4
[2017-01-31 13:10] LABS: Activated Partial Thrombo Time 32.9 Seconds (26.0-36.0); Sodium 137 mEq/L (136-145)
[2017-01-31] MEDS: 0.9 % Sodium Chloride 1,000 ML IVC SCH (14:16)
[2017-01-31] MEDS: Nitroglycerin 25 MG/250 ML INFUS..BTL IVC SCH (14:21)
[2017-01-31] MEDS: niCARdipine 20 MG/200 ML MLS IVC SCH ×3 (14:39→20:34)
[2017-01-31] MEDS ORDERED: *HR* LORazepam 2 MG/ML VIAL IVP PRN (14:51)
[2017-01-31 16:19] LABS: ABG Base Excess -3.6 mEq/L (-2.0 to 3.0); ABG HCO3 22.1 mEQ/L (21-27); ABG Oxygen Saturation 98 % (95-98); ABG PCO2 42 mmHg (35-45); ABG PH 7.33 pH Units (7.32-7.45); ABG PO2 115 mmHg (85-104); ABG TCO2 23.4 mEq/L (20-26)
[2017-01-31 16:21] LABS: Blood Gas FiO2 50 %; Blood Gas PEEP 5 cm H2O; Blood Gas Respiration Rate 12; Blood Gas VT 700 cc
[2017-01-31] MEDS: ceFAZolin 2,000 MG in D5% in Water 100 ML IVPB SCH (16:28)
[2017-01-31] MEDS ORDERED: Insulin Human Regular 100 UNIT in 0.9 % Sodium Chloride 100 ML IVC SCH (17:45)
[2017-01-31] MEDS ORDERED: Norepinephrine 8 MG in D5% in Water 250 ML IVC SCH (18:30)
[2017-01-31 18:37] LABS: ABG Base Excess -2.8 mEq/L (-2.0 to 3.0); ABG HCO3 22.6 mEQ/L (21-27); ABG Oxygen Saturation 99 % (95-98); ABG PCO2 41 mmHg (35-45); ABG PH 7.35 pH Units (7.32-7.45); ABG PO2 125 mmHg (85-104); ABG TCO2 23.9 mEq/L (20-26); Blood Gas FiO2 50 %; Blood Gas Respiration Rate 10
[2017-01-31 20:11] LABS: ABG Base Excess -0.8 mEq/L (-2.0 to 3.0); ABG HCO3 24.3 mEQ/L (21-27); ABG Oxygen Saturation 92 % (95-98); ABG PCO2 41 mmHg (35-45); ABG PH 7.38 pH Units (7.32-7.45); ABG PO2 64 mmHg (85-104); ABG TCO2 25.6 mEq/L (20-26); Blood Gas FiO2 28 %; Blood Gas Liter Flow 2 L/MIN
[2017-01-31 21:01] LABS: Basophils % 0.2 %; Eosinophils % 0.1 %; Hematocrit 27.8 % (37.5-50.1); Hemoglobin 9.3 g/dL (12.9-16.9); Immature Granulocytes % 1.1 % (0-4); Lymphocytes # 0.5 K/mcL (0.6-4.6); Lymphocytes % 3.4 %; Mean Corpuscular HGB Conc 33.5 g/dL (31.6-35.5); Mean Corpuscular Hemoglobin 30.4 pg (28.0-33.3); Mean Corpuscular Volume 90.8 fL (83.0-100.0); Mean Platelet Volume 9.4 fL (9.4-12.4); Monocytes # 1.9 K/mcL (0.0-1.3); Monocytes % 12.3 %; Platelet Count 204 K/mcL (140-400); Red Blood Count 3.06 M/mcL (4.19-5.50); Segmented Neutrophils % 82.9 %
[2017-01-31 21:05] LABS: Neutrophils # 12.8 K/mcL (1.6-8.9)
[2017-01-31] MEDS ORDERED: DESMOPRESSIN IVPB SCH (21:30)
[2017-01-31] MEDS ORDERED: SODIUM CHLORIDE 0.9% IVPB SCH (21:30)
[2017-01-31] MEDS ORDERED: 0.9 % Sodium Chloride 250 ML ONE (22:05)
--- NOTE | 2017-01-31 22:50 | Event Note ---
Date of Encounter: 01/31/17 Time of Encounter: 22:47 I was asked to see the patient because he had a dump of over 200 mL after being turned. The 2 previous hours he put out 70 and 90 mL for a total of 1 60 mL the patient is awake, alert and extubated. His O2 saturation is 93 on 2 L. He shows no signs of tamponade. Cardiac index is 2.6. Blood pressure 121/60 on low-dose levofed. Pulmonary artery pressures 26/12. CVP of 13. Pulse is 74 and sinus. No JVD or pulses paradoxus. Repeat stat chest x-ray is unchanged. It shows no collections. No widening of the mediastinum. The PDA catheter is coiled in the pulmonary artery. I did try several times to reposition this, but I feel that the cardiac index may be unreliable. Chest tube drainage while I watched the patient has decreased. We will give him desmopressin and a 10 pack of platelets. Urine output is good.
[2017-02-01] MEDS: ceFAZolin 2,000 MG in D5% in Water 100 ML IVPB SCH (01:09)
[2017-02-01] MEDS: Nitroglycerin 25 MG/250 ML INFUS..BTL IVC SCH ×3 (01:10→13:33)
[2017-02-01] MEDS: 0.9 % Sodium Chloride 1,000 ML IVC SCH ×2 (04:25→16:26)
[2017-02-01 04:32] LABS: Basophils % 0.1 %; Hematocrit 26.4 % (37.5-50.1); Hemoglobin 8.9 g/dL (12.9-16.9); Immature Granulocytes % 0.4 % (0-4); Lymphocytes # 0.5 K/mcL (0.6-4.6); Lymphocytes % 4.4 %; Mean Corpuscular HGB Conc 33.7 g/dL (31.6-35.5); Mean Corpuscular Hemoglobin 30.2 pg (28.0-33.3); Mean Corpuscular Volume 89.5 fL (83.0-100.0); Mean Platelet Volume 10.1 fL (9.4-12.4); Monocytes # 1.3 K/mcL (0.0-1.3); Monocytes % 12.1 %; Neutrophils # 8.6 K/mcL (1.6-8.9); Platelet Count 210 K/mcL (140-400); Red Blood Count 2.95 M/mcL (4.19-5.50); Red Cell Distribution Width 14.1 % (11.5-14.5)
[2017-02-01 04:44] LABS: INR 1.1; Prothrombin Time 12.4 Seconds (9.4-12.1)
[2017-02-01 04:46] LABS: Activated Partial Thrombo Time 27.5 Seconds (26.0-36.0)
[2017-02-01 05:08] LABS: Calcium 8.2 mg/dL (8.6-10.8); Magnesium 2.3 mg/dL (1.6-2.6); Potassium 5.1 mEq/L (3.5-4.5)
--- NOTE | 2017-02-01 06:52 | Cardiothoracic Progress Note ---
Date of Encounter: 01/31/17 Time of Encounter: 06:49 - Assessment and plan (1) Congestive heart failure Current Visit: Yes Status: Acute The patient's creatinine is up to 1.51. We will monitor this. He is off all pressors. We will hold his Zestril for now. We will leave him in the ICU today. We will remove his Wing-Kristal catheter as it has been curling up in the pulmonary artery. We will leave his Willett to monitor his urine output for now. Qualifiers: Congestive heart failure type: systolic Congestive heart failure chronicity : acute on chronic Qualified Code(s): I50.23 - Acute on chronic systolic ( congestive) heart failure - Subjective Interval history: The patient has no complaints. He is extubated and sitting in a chair. He is off all pressors. Vital Signs, Last 4 Hours Pulse Resp BP Pulse Ox 02/01/17 06:00 83 22 124/57 96 02/01/17 05:06 28 96 02/01/17 05:00 83 12 114/54 92 L 02/01/17 04:00 88 18 135/63 93 L 02/01/17 03:00 86 18 134/70 94 L Oxgyen Flow Rate Oxygen Flow Rate (LPM) 2 Clinical Data, last 8 Hours Output, Chest Tube Drainage 20 Amount [Mediastinal #3] Output, Chest Tube Drainage 0 Amount [Mediastinal #3] Output, Chest Tube Drainage 20 Amount [Mediastinal #3] Output, Chest Tube Drainage 60 Amount [Mediastinal #3] Output, Chest Tube Drainage 40 Amount [Mediastinal #3] Output, Chest Tube Drainage 50 Amount [Mediastinal #3] Output, Chest Tube Drainage 20 Amount [Mediastinal #3] Output, Chest Tube Drainage 10 Amount [Mediastinal #2] Output, Chest Tube Drainage 0 Amount [Mediastinal #2] Output, Chest Tube Drainage 20 Amount [Mediastinal #2] Output, Chest Tube Drainage 20 Amount [Mediastinal #2] Output, Chest Tube Drainage 60 Amount [Mediastinal #2] Output, Chest Tube Drainage 40 Amount [Mediastinal #2] Output, Chest Tube Drainage 160 Amount [Mediastinal #2] Output, Chest Tube Drainage 10 Amount [Mediastinal #1] Output, Chest Tube Drainage 0 Amount [Mediastinal #1] Output, Chest Tube Drainage 0 Amount [Mediastinal #1] Output, Chest Tube Drainage 0 Amount [Mediastinal #1] Output, Chest Tube Drainage 0 Amount [Mediastinal #1] Output, Chest Tube Drainage 0 Amount [Mediastinal #1] Output, Chest Tube Drainage 110 Amount [Mediastinal #1] Weight 01/30/17 01/31/17 02/01/17 23:59 23:59 23:59 Weight 101.8 kg Lungs are clear to percussion and auscultation. Heart is in a normal sinus rhythm. All incisions are healing well without signs of infection and the sternum is stable. Chest tube drainage is minimal. Urine output is good. Chest x -ray reveals atelectasis at the left base. The mediastinum is not widened. - Labs 02/01/17 04:19 02/01/17 04:19 Lab Results, Last 24 hours 01/31/17 01/31/17 01/31/17 12:40 12:40 12:40 WBC 17.4 H D Hgb 10.6 L D Hct 32.3 L Plt Count 142 INR 1.4 APTT 32.9 Sodium 137 Potassium 4.4 Chloride 107 Carbon Dioxide 25 BUN 20 Creatinine 1.20 Glucose 72 Calcium 7.7 L D Magnesium 2.8 H 01/31/17 02/01/17 02/01/17 20:50 04:19 04:19 WBC 15.4 H 10.4 Hgb 9.3 L 8.9 L Hct 27.8 L 26.4 L Plt Count 204 210 INR 1.1 APTT 27.5 Sodium Potassium Chloride Carbon Dioxide BUN Creatinine Glucose Calcium Magnesium 02/01/17 04:19 WBC Hgb Hct Plt Count INR APTT Sodium 135 L Potassium 5.1 H Chloride 106 Carbon Dioxide 22 BUN 24 Creatinine 1.51 H Glucose 126 H Calcium 8.2 L Magnesium 2.3 - VTE Documentation of Mechanical Device: Graduated compression elastic hosiery Consult Discharge Plan - Plan Referrals: Mae Ken CNP [Advanced Practice Nurse] - 02/07/17 10:30 am (located in [facility] #[phone] please give a days notice if you need to cancel appt Please expect a new pt packet in the mail to complete) Jarod Malhotra CNP [Advanced Practice Nurse] - 02/27/17 8:00 am
[2017-02-01 08:24] LABS: ABG PCO2 51 mmHg (35-45); ABG PH 7.31 pH Units (7.32-7.45); ABG PO2 97 mmHg (85-104)
[2017-02-01 08:25] LABS: ABG Base Excess -1.2 mEq/L (-2.0 to 3.0); ABG Glucose 101 mg/dL (60-95); ABG HCO3 25.7 mEQ/L (21-27); ABG Hematocrit 42 % (35-51); ABG Ionized Calcium 1.01 mmol/L (1.15-1.35); ABG Oxygen Saturation 97 % (95-98); ABG TCO2 27.3 mEq/L (20-26)
[2017-02-01 08:27] LABS: ABG Base Excess -6.4 mEq/L (-2.0 to 3.0); ABG Glucose 63 mg/dL (60-95); ABG HCO3 19.1 mEQ/L (21-27); ABG Hematocrit 29 % (35-51); ABG Oxygen Saturation 94 % (95-98); ABG PCO2 37 mmHg (35-45); ABG PH 7.32 pH Units (7.32-7.45); ABG PO2 75 mmHg (85-104); ABG TCO2 20.2 mEq/L (20-26)
[2017-02-01 08:29] LABS: ABG Base Excess 0.2 mEq/L (-2.0 to 3.0); ABG HCO3 25.4 mEQ/L (21-27); ABG Oxygen Saturation 100 % (95-98); ABG PCO2 43 mmHg (35-45); ABG PH 7.38 pH Units (7.32-7.45); ABG PO2 435 mmHg (85-104); ABG TCO2 26.7 mEq/L (20-26)
[2017-02-01 08:30] LABS: ABG Glucose 190 mg/dL (60-95); ABG Hematocrit 27 % (35-51); ABG Ionized Calcium 0.93 mmol/L (1.15-1.35)
[2017-02-01 08:32] LABS: ABG Base Excess 1.2 mEq/L (-2.0 to 3.0); ABG Glucose 139 mg/dL (60-95); ABG Hematocrit 30 % (35-51); ABG Ionized Calcium 1.02 mmol/L (1.15-1.35); ABG Oxygen Saturation 100 % (95-98); ABG PCO2 41 mmHg (35-45); ABG PH 7.41 pH Units (7.32-7.45); ABG PO2 370 mmHg (85-104); ABG TCO2 27.3 mEq/L (20-26)
[2017-02-01 08:34] LABS: ABG Base Excess 0.9 mEq/L (-2.0 to 3.0); ABG Hematocrit 30 % (35-51); ABG Oxygen Saturation 100 % (95-98); ABG PCO2 43 mmHg (35-45); ABG PH 7.39 pH Units (7.32-7.45); ABG PO2 359 mmHg (85-104); ABG TCO2 27.3 mEq/L (20-26)
[2017-02-01 08:35] LABS: ABG Glucose 117 mg/dL (60-95)
[2017-02-01 08:36] LABS: ABG PCO2 45 mmHg (35-45); ABG PH 7.39 pH Units (7.32-7.45); ABG PO2 282 mmHg (85-104)
[2017-02-01] MEDS: Aspirin 81 MG TAB.CHEW PO SCH (08:36)
[2017-02-01 08:37] LABS: ABG Base Excess 1.9 mEq/L (-2.0 to 3.0); ABG Glucose 84 mg/dL (60-95); ABG HCO3 27.2 mEQ/L (21-27); ABG Hematocrit 33 % (35-51); ABG Ionized Calcium 1.03 mmol/L (1.15-1.35); ABG Oxygen Saturation 100 % (95-98); ABG TCO2 28.6 mEq/L (20-26)
[2017-02-01] MEDS: *HR* OxyCODONE/APAP 5/325 TABLET PO PRN ×3 (08:37→21:40)
[2017-02-01] MEDS: Lisinopril 20 MG TABLET PO SCH (08:37)
[2017-02-01] MEDS: Chlorhexidine Rinse 15 ML MOUTHWASH MM SCH ×2 (08:37→21:41)
[2017-02-01 08:39] LABS: ABG Base Excess -5.3 mEq/L (-2.0 to 3.0); ABG Glucose 42 mg/dL (60-95); ABG HCO3 21.1 mEQ/L (21-27); ABG Hematocrit 24 % (35-51); ABG Ionized Calcium 0.81 mmol/L (1.15-1.35); ABG Oxygen Saturation 91 % (95-98); ABG PCO2 45 mmHg (35-45); ABG PH 7.28 pH Units (7.32-7.45); ABG PO2 68 mmHg (85-104); ABG TCO2 22.5 mEq/L (20-26)
--- NOTE | 2017-02-01 11:46 | Electrocardiograph Report ---
[address] [place], [place] [address] Test Date: 2017-01-31 Pat Name: dEgar Champion Department: 109 Room: 06 Gender: M Inside Barrel Polisher: JACOB : 1955 Requested By: Lopez Ascencio Order Number: [id number] Reading MD: Brian Odom MD Measurements Intervals [place] Rate: 82 P: 68 ME: 175 QRS: -26 QRSD: 116 T: 75 QT: 411 QTc: 450 Interpretive Statements SINUS RHYTHM LEFT ATRIAL ENLARGEMENT BORDERLINE LEFT AXIS DEVIATION LATERAL ISCHEMIA Electronically Signed On 02-01-2017 11:44:49 EDT by Brian Odom MD
[2017-02-01] MEDS ORDERED: Dextrose Gel 15 GM PO PRN ×2 (12:24)
[2017-02-01] MEDS ORDERED: *HR* Dextrose 50 % in Water (Syg) 50 ML SYRINGE IVP PRN (12:24)
[2017-02-01] MEDS ORDERED: D5% in Water 1,000 ML IVC PRN (12:24)
--- NOTE | 2017-02-01 14:05 | Anesthesia Evaluation Post Op ---
Date of Encounter: 02/01/17 Time of Encounter: 13:00 - Vital Signs Vital Signs: Selected Entries 02/01/17 13:00 Pulse Rate 89 Respiratory Rate 22 Blood Pressure 120/56 O2 Sat by Pulse Oximetry 91 Oxygen Flow Rate (LPM) 3 - Lungs Lungs: Clear Ascult./Percussion - Airway Airway: Non-obstructed - Cardiovascular Regular Rate - Mental Status Mental Status: Alert & Oriented, Answers Appropriately - Pain Pain Scale: 2 Pain Scale used: Numeric (1 - 10) - Nausea Vomiting Nausea Vomiting: Not Present - Hydration Hydration: Tolerates oral liquids, Willett catheter Notes: 02/01/17 14:04 Patient looks great, has set up in the chair without difficulty. No anesthesia complications. Patient looks great. Will probably be transferred to floor later today or tomorrow.
[2017-02-01] MEDS: Insulin LISPRO 300 UNITS/3 ML VIAL SQ SCH (16:27)
[2017-02-01] MEDS ORDERED: Insulin LISPRO 300 UNITS/3 ML VIAL SQ SCH (21:00)
[2017-02-02] MEDS: *HR* Morphine 2 MG/ML SYRINGE IVP PRN ×4 (03:29→23:05)
[2017-02-02 04:13] LABS: Basophils % 0.2 %; Eosinophils % 0.2 %; Hematocrit 24.3 % (37.5-50.1); Immature Granulocytes % 0.5 % (0-4); Lymphocytes % 7.7 %; Mean Corpuscular HGB Conc 32.9 g/dL (31.6-35.5); Mean Corpuscular Hemoglobin 30.1 pg (28.0-33.3); Mean Corpuscular Volume 91.4 fL (83.0-100.0); Mean Platelet Volume 10.7 fL (9.4-12.4); Monocytes # 1.9 K/mcL (0.0-1.3); Monocytes % 14.4 %; Neutrophils # 10.1 K/mcL (1.6-8.9); Platelet Count 187 K/mcL (140-400); Red Blood Count 2.66 M/mcL (4.19-5.50); Red Cell Distribution Width 14.6 % (11.5-14.5)
[2017-02-02 04:29] LABS: BUN/Creatinine Ratio 25 (6-26); Blood Urea Nitrogen 33 mg/dL (8-26); Calcium 9.2 mg/dL (8.6-10.8); Carbon Dioxide 22 mEq/L (19-29); Chloride 107 mEq/L (98-109); Glucose 124 mg/dL (70-99); Osmolality,Calculated 299 (280-300); Potassium 4.5 mEq/L (3.5-4.5); Sodium 140 mEq/L (136-145); eGFR For African Americans > 60 (> 60); eGFR For Non-African Americans 56 (> 60)
--- NOTE | 2017-02-02 08:20 | Cardiothoracic Progress Note ---
Date of Encounter: 02/02/17 Time of Encounter: 08:18 - Assessment and plan (1) CAD (coronary artery disease) Current Visit: Yes Status: Acute The patient is recovering well from his CABG2. He has remained hemodynamically stable. The chest tubes and Willett catheter will be removed today. The patient will be transferred to the stepdown unit later today. The assessment and plan as outlined above was discussed with the patient and/or family members who expressed understanding and agreement. All questions were answered. Qualifiers: Coronary Disease-Associated Artery/Lesion type: [place] artery [place] vs. transplanted heart: [place] heart Associated angina: without angina Qualified Code(s): I25.10 - Atherosclerotic heart disease of [place] coronary artery without angina pectoris - Subjective Procedure(s) Performed: POD#2 S/P CABG2 Interval history: The patient is resting comfortably in his hospital bed. He has no complaints of substernal chest pain or shortness of breath. Vital Signs, Last 4 Hours Pulse Resp BP Pulse Ox 02/02/17 07:48 16 96 02/02/17 06:00 86 21 123/55 97 02/02/17 05:00 93 28 124/60 95 02/02/17 04:47 18 97 Oxgyen Flow Rate Oxygen Flow Rate (LPM) 2 Clinical Data, last 8 Hours Output, Chest Tube Drainage 20 Amount [Mediastinal #3] Weight 01/31/17 02/01/17 02/02/17 23:59 23:59 23:59 Weight 101.8 kg - Physical Examination General: Conversant, No Apparent Distress Neck: No JVD, Normal carotid pulses Cardiac: Reg Rate and Rhythm, Normal S1 and S2, No Murmur Incision: No signs of infection, Dry/intact dressing Sternum: Stable Chest tubes: Minimal drainage Lungs: Normal Breath Sounds, No Wheeze, Rales, Rhonchi Neuro: Alert and responsive, No focal deficits noted Vascular: Normal capillary refill Extremities: No Clubbing, No Cyanosis, No Edema - Labs 02/02/17 03:44 02/02/17 03:44 Lab Results, Last 24 hours 02/02/17 02/02/17 03:44 03:44 WBC 13.1 H Hgb 8.0 L Hct 24.3 L Plt Count 187 Sodium 140 Potassium 4.5 Chloride 107 Carbon Dioxide 22 BUN 33 H Creatinine 1.32 H Glucose 124 H Calcium 9.2 - Imaging Chest Xray: image reviewed (No pneumothorax. Mimimal RLL atelectasis/ infiltrates.) - VTE Documentation of Mechanical Device: Graduated compression elastic hosiery Consult Discharge Plan - Plan Referrals: Mae Ken CNP [Advanced Practice Nurse] - 02/07/17 10:30 am (located in [facility] #[phone] please give a days notice if you need to cancel appt Please expect a new pt packet in the mail to complete) Jarod Malhotra CNP [Advanced Practice Nurse] - 02/27/17 8:00 am
[2017-02-02] MEDS ORDERED: *HR* Morphine 2 MG/ML SYRINGE IV PRN (08:25)
[2017-02-02] MEDS: Chlorhexidine Rinse 15 ML MOUTHWASH MM SCH ×3 (08:44→20:18)
[2017-02-02] MEDS: Aspirin 81 MG TAB.CHEW PO SCH ×2 (08:44→11:40)
[2017-02-02] MEDS: *HR* OxyCODONE/APAP 5/325 TABLET PO PRN ×3 (08:45→21:04)
[2017-02-02] MEDS: Insulin LISPRO 300 UNITS/3 ML VIAL SQ SCH ×4 (08:45→20:57)
[2017-02-02] MEDS: Lisinopril 20 MG TABLET PO SCH ×2 (08:45→11:41)
[2017-02-02] MEDS ORDERED: *HR* Dextrose 50 % in Water (Syg) 50 ML SYRINGE IVP PRN (08:55)
[2017-02-02] MEDS ORDERED: Dextrose Gel 15 GM PO PRN ×2 (08:55)
[2017-02-02] MEDS ORDERED: D5% in Water 1,000 ML IVC PRN (08:55)
[2017-02-02] MEDS ORDERED: *HR* LORazepam 2 MG/ML VIAL IVP PRN (08:55)
[2017-02-02] MEDS ORDERED: Ondansetron 4 MG/2 ML VIAL IVP PRN (08:55)
[2017-02-02] MEDS ORDERED: Naloxone 0.4 MG/ML INJ IVP PRN (08:55)
[2017-02-02] MEDS ORDERED: 0.9 % Sodium Chloride w KCl 20 MEQ/1,000 ML MLS IVC SCH (17:45)
[2017-02-02] MEDS ORDERED: 0.9 % Sodium Chloride 1,000 ML ONE (18:25)
[2017-02-02] MEDS: 0.9 % Sodium Chloride 1,000 ML IVC SCH (18:33)
[2017-02-03 01:33] LABS: Hematocrit 23.6 % (37.5-50.1); Hemoglobin 7.6 g/dL (12.9-16.9); Mean Corpuscular HGB Conc 32.2 g/dL (31.6-35.5); Mean Corpuscular Hemoglobin 30.4 pg (28.0-33.3); Mean Corpuscular Volume 94.4 fL (83.0-100.0); Mean Platelet Volume 10.9 fL (9.4-12.4); Platelet Count 186 K/mcL (140-400); Red Cell Distribution Width 14.6 % (11.5-14.5)
[2017-02-03 01:36] LABS: VBG HCO3 28.2 mEq/L (21-27); VBG PH 7.35 pH Units (7.32-7.42)
[2017-02-03 01:47] LABS: Potassium 4.9 mEq/L (3.5-4.5)
[2017-02-03] MEDS: *HR* OxyCODONE/APAP 5/325 TABLET PO PRN ×4 (04:30→20:58)
--- NOTE | 2017-02-03 07:34 | Cardiothoracic Progress Note ---
Date of Encounter: 02/03/17 Time of Encounter: 07:32 - Assessment and plan (1) CAD (coronary artery disease) Current Visit: Yes Status: Acute The patient is recovering well from his CABG2. He has remained hemodynamically stable. The patient was encouraged to ambulate in the hallways and deep breathing and cough to help improve respiratory status. The chest x-ray will be repeated tomorrow and if the pleural effusion is larger, he will undergo a thoracentesis. The assessment and plan as outlined above was discussed with the patient and/or family members who expressed understanding and agreement. All questions were answered. Qualifiers: Coronary Disease-Associated Artery/Lesion type: [place] artery [place] vs. transplanted heart: [place] heart Associated angina: without angina Qualified Code(s): I25.10 - Atherosclerotic heart disease of [place] coronary artery without angina pectoris - Subjective Procedure(s) Performed: POD#3 S/P CABG2 Interval history: The patient is resting comfortably in his hospital bed. He has no complaints of substernal chest pain, though he does have shortness of breath when ambulating in the hallways. Vital Signs, Last 4 Hours Temp Pulse Resp BP Pulse Ox 02/03/17 07:22 87 22 120/78 97 02/03/17 04:30 88 02/03/17 04:18 98.2 F 84 24 97/68 96 02/03/17 04:14 18 96 Oxgyen Flow Rate Oxygen Flow Rate (LPM) 4 - Physical Examination General: Conversant, No Apparent Distress Neck: No JVD, Normal carotid pulses Cardiac: Reg Rate and Rhythm, Normal S1 and S2, No Murmur Incision: No signs of infection, Dry/intact dressing Sternum: Stable Lungs: Decreased breath sounds (Right base.), Other (Expiratory wheezes bilaterally.) Neuro: Alert and responsive, No focal deficits noted Vascular: Normal capillary refill Extremities: No Clubbing, No Cyanosis, No Edema - Labs 02/03/17 01:20 02/03/17 01:20 Lab Results, Last 24 hours 02/03/17 02/03/17 02/03/17 01:20 01:20 01:20 WBC 12.6 H Hgb 7.6 L Hct 23.6 L Plt Count 186 Sodium 138 Potassium 4.9 H Chloride 106 Carbon Dioxide 22 BUN 42 H Creatinine 1.63 H Glucose 96 Calcium 9.0 B-Natriuretic Peptide 155 H - Imaging Chest Xray: image reviewed (No pneumothorax. Increased size of right pleural effusion.) - VTE Documentation of Mechanical Device: Graduated compression elastic hosiery Consult Discharge Plan - Plan Referrals: Mae Ken CNP [Advanced Practice Nurse] - 02/07/17 10:30 am (located in [facility] #[phone] please give a days notice if you need to cancel appt Please expect a new pt packet in the mail to complete) Jarod Malhotra CNP [Advanced Practice Nurse] - 02/27/17 8:00 am
[2017-02-03] MEDS: Aspirin 81 MG TAB.CHEW PO SCH (09:06)
[2017-02-03] MEDS: Lisinopril 20 MG TABLET PO SCH (09:06)
[2017-02-03] MEDS: Insulin LISPRO 300 UNITS/3 ML VIAL SQ SCH ×4 (09:07→21:00)
[2017-02-03] MEDS: Chlorhexidine Rinse 15 ML MOUTHWASH MM SCH ×2 (09:08→20:59)
[2017-02-03] MEDS: *HR* Morphine 2 MG/ML SYRINGE IVP PRN ×2 (11:56→21:57)
[2017-02-03] MEDS: 0.9 % Sodium Chloride 1,000 ML IVC SCH (16:33)
[2017-02-04 04:33] LABS: Hematocrit 23.7 % (37.5-50.1); Hemoglobin 7.7 g/dL (12.9-16.9); Mean Corpuscular HGB Conc 32.5 g/dL (31.6-35.5); Mean Corpuscular Hemoglobin 30.4 pg (28.0-33.3); Mean Corpuscular Volume 93.7 fL (83.0-100.0); Mean Platelet Volume 11.4 fL (9.4-12.4); Platelet Count 202 K/mcL (140-400); Red Blood Count 2.53 M/mcL (4.19-5.50); Red Cell Distribution Width 14.6 % (11.5-14.5)
[2017-02-04 04:54] LABS: BUN/Creatinine Ratio 32 (6-26); Blood Urea Nitrogen 38 mg/dL (8-26); Calcium 8.9 mg/dL (8.6-10.8); Carbon Dioxide 20 mEq/L (19-29); Chloride 107 mEq/L (98-109); Glucose 100 mg/dL (70-99); Osmolality,Calculated 295 (280-300); Potassium 4.4 mEq/L (3.5-4.5); Sodium 138 mEq/L (136-145); eGFR For African Americans > 60 (> 60); eGFR For Non-African Americans > 60 (> 60)
--- NOTE | 2017-02-04 07:23 | Cardiothoracic Progress Note ---
Date of Encounter: 02/04/17 Time of Encounter: 07:21 - Assessment and plan (1) CAD (coronary artery disease) Current Visit: Yes Status: Acute The patient is recovering well from his CABG2. He has remained hemodynamically stable. The patient was encouraged to ambulate in the hallways and deep breathing and cough to help improve respiratory status. I will order a chest CT this morning to evaluate his mediastinum and to rule out possible pulmonary embolus. The assessment and plan as outlined above was discussed with the patient and/or family members who expressed understanding and agreement. All questions were answered. Qualifiers: Coronary Disease-Associated Artery/Lesion type: [place] artery [place] vs. transplanted heart: [place] heart Associated angina: without angina Qualified Code(s): I25.10 - Atherosclerotic heart disease of [place] coronary artery without angina pectoris - Subjective Procedure(s) Performed: POD#4 S/P CABG2 Interval history: The patient is resting comfortably in his hospital bed. He has no complaints of substernal chest pain, though he does have shortness of breath when ambulating in the hallways. Vital Signs, Last 4 Hours Temp Pulse Resp BP Pulse Ox 02/04/17 04:18 18 98 02/04/17 04:08 98.1 F 90 26 127/80 97 02/04/17 04:00 76 Oxgyen Flow Rate Oxygen Flow Rate (LPM) 4 Clinical Data, last 8 Hours Output, Urine Amount 550 Weight 02/02/17 02/03/17 02/04/17 23:59 23:59 23:59 Weight 111.2 kg - Physical Examination General: Conversant, No Apparent Distress Neck: No JVD, Normal carotid pulses Cardiac: Reg Rate and Rhythm, Normal S1 and S2, No Murmur Incision: No signs of infection, Dry/intact dressing Sternum: Stable Lungs: Normal Breath Sounds, No Wheeze, Rales, Rhonchi Neuro: Alert and responsive, No focal deficits noted Vascular: Normal capillary refill Musculoskeletal: No Chest Wall Tenderness Extremities: No Clubbing, No Cyanosis, No Edema - Labs 02/04/17 04:20 02/04/17 04:20 Lab Results, Last 24 hours 02/04/17 02/04/17 04:20 04:20 WBC 12.0 H Hgb 7.7 L Hct 23.7 L Plt Count 202 Sodium 138 Potassium 4.4 Chloride 107 Carbon Dioxide 20 BUN 38 H Creatinine 1.19 Glucose 100 H Calcium 8.9 - Imaging Chest Xray: image reviewed (No pneumothorax. Improved aeration right lower base. ) - VTE Documentation of Mechanical Device: Graduated compression elastic hosiery Consult Discharge Plan - Plan Referrals: Mae Ken CNP [Advanced Practice Nurse] - 02/07/17 10:30 am (located in [facility] #[phone] please give a days notice if you need to cancel appt Please expect a new pt packet in the mail to complete) Jarod Malhotra CNP [Advanced Practice Nurse] - 02/27/17 8:00 am
[2017-02-04] MEDS: Lisinopril 20 MG TABLET PO SCH (08:21)
[2017-02-04] MEDS: Aspirin 81 MG TAB.CHEW PO SCH (08:21)
[2017-02-04] MEDS: Chlorhexidine Rinse 15 ML MOUTHWASH MM SCH ×2 (08:21→21:30)
[2017-02-04] MEDS: Insulin LISPRO 300 UNITS/3 ML VIAL SQ SCH ×4 (08:28→21:49)
[2017-02-04] MEDS: *HR* Morphine 2 MG/ML SYRINGE IVP PRN ×2 (09:55→16:25)
[2017-02-04] MEDS ORDERED: Bupivacaine/EPI 1:200k 0.5%PF 30 ML VIAL ONE (12:02)
[2017-02-04] MEDS ORDERED: *HR* Phenylephrine 10 MG/ML VIAL ONE (12:33)
[2017-02-04] MEDS ORDERED: *HR* Rocuronium Bromide 50 MG/5 ML VIAL ONE (12:33)
[2017-02-04] MEDS ORDERED: *HR* Etomidate 20 MG/10 ML AMPUL IVP ONE (12:33)
[2017-02-04] MEDS ORDERED: *HR* FentaNYL (PF) 250 MCG/5 ML VIAL ONE (12:36)
[2017-02-04] MEDS ORDERED: Ondansetron 4 MG/2 ML VIAL ONE (13:15)
[2017-02-04] MEDS ORDERED: Dexamethasone 4 MG/ML VIAL ONE (13:15)
[2017-02-04] MEDS ORDERED: *HR* Morphine 2 MG/ML SYRINGE IVP PRN (14:30)
--- NOTE | 2017-02-04 14:41 | Operative Note ---
Date of procedure: 02/04/17 Pre-op diagnosis: Mediastinal hematoma. Post-op diagnosis: same Procedure: 1. Sternal reexploration. 2. Evacuation of mediastinal hematoma. Implants: None. Complications: None. Anesthesia: GETA Surgeon: Grace Valle Specimen: None. Condition: stable Disposition: ICU Procedure in Detail: INDICATIONS FOR OPERATION: The patient is a 61-year-old man who underwent a CABG 2 on January. Postoperatively the patient had a large amount of chest tube output which eventually stopped after administration of blood products. The patient remained hemodynamic stable and he had no evidence of pericardial tamponade. The chest tube was removed and the patient was transferred to the telemetry unit. While walking the patient complained of shortness of breath and dyspnea on exertion. A chest CT was performed this morning and this revealed a hematoma located anteriorly and along the right lateral heart border. Given the patient's symptoms and his chest CT findings was thought that the patient would benefit from mediastinal exploration and evacuation of hematoma. FINDINGS AT OPERATION: The patient had a large hematoma located anteriorly and along the right atrium. No other maladies were noted. DESCRIPTION OF OPERATION: After obtaining informed consent for the patient, he was taken to the operative room was satisfactory general tracheal anesthetic was induced. Appropriate monitor lines placed, the patient's neck, chest, and upper abdomen prepped and draped in a sterile fashion. The sternotomy incision was reopened and sternal wires removed. The sternal halves were and a large amount of hematoma and free blood were noted anteriorly and along the right lateral heart border. This was removed using a combination of suction and forceps. The aortic cannulation site, proximal graft anastomoses, right atrial cannulation site and pacing wire sites were noted to be hemostatic. No other abnormalities were noted in the mediastinum. Both the left and right pleural cavities were suctioned and minimal fluid was removed. The mediastinum was then irrigated with 1 L of saline solution. The sternum was reapproximated using sternal wires and the pectoralis major fascia, rectus abdominis fascia, subcutaneous tissue, and skin edges were reapproximated using running Vicryl sutures. Steri-Strips and sterile dressings were applied. The patient was transferred to the ICU in satisfactory postoperative condition. There were no intraoperative complications, and the instrument, needle, and sponge count were correct at the end of operation.
[2017-02-04] MEDS: Albuterol 2.5 MG/3 ML NEBULIZER IH SCH ×3 (14:53→23:29)
[2017-02-04] MEDS ORDERED: Furosemide 40 MG/4 ML VIAL IVP ONE (15:04)
[2017-02-04 15:18] LABS: Basophils % 0.2 %; Eosinophils # 0.3 K/mcL (0.0-0.6); Eosinophils % 3.2 %; Hematocrit 22.8 % (37.5-50.1); Hemoglobin 7.2 g/dL (12.9-16.9); Immature Granulocytes % 0.8 % (0-4); Lymphocytes # 0.6 K/mcL (0.6-4.6); Lymphocytes % 5.9 %; Mean Corpuscular HGB Conc 31.6 g/dL (31.6-35.5); Mean Corpuscular Hemoglobin 30.3 pg (28.0-33.3); Mean Corpuscular Volume 95.8 fL (83.0-100.0); Monocytes # 0.6 K/mcL (0.0-1.3); Monocytes % 6.9 %; Neutrophils # 7.7 K/mcL (1.6-8.9); Platelet Count 178 K/mcL (140-400); Red Blood Count 2.38 M/mcL (4.19-5.50); Red Cell Distribution Width 14.6 % (11.5-14.5)
[2017-02-04 15:30] LABS: BUN/Creatinine Ratio 33 (6-26); Blood Urea Nitrogen 34 mg/dL (8-26); Calcium 8.6 mg/dL (8.6-10.8); Carbon Dioxide 21 mEq/L (19-29); Chloride 108 mEq/L (98-109); Glucose 122 mg/dL (70-99); Osmolality,Calculated 295 (280-300); Potassium 4.8 mEq/L (3.5-4.5); Sodium 138 mEq/L (136-145); eGFR For African Americans > 60 (> 60); eGFR For Non-African Americans > 60 (> 60)
--- NOTE | 2017-02-04 15:34 | Pulmonology Consult Note ---
<Asad Puga - Last Filed: 02/04/17 16:22> Date of Encounter: 02/04/17 Time of Encounter: 15:09 Assessment and Plan (1) Shortness of breath Current Visit: Yes Status: Acute 61 y/o male hx of HTN, former smoker s/p CABG on 01/31 with post op complication of mediastinal hematoma evacuated this morning. S/p evacuation of mediastinal hematoma patient had SOB. Pulmonary critical care was consulted for this purpose. LHC showed EF of 25% hx of smoking CXR shows diffuse pulmonary edema and worsening of right plueral effusion and small left pneumothorax. Patient has three chest tubes: one in each lung and one in mediastinum. ABG shows pH 7.38 and PCO2 of 43 with PO2 of 57 on 3L O2 with SPO2 of 99%. With systolic HF and fluid administration, patient has become fluid overloaded. Has been given one dose of lasix 40mg. Will repeat CXR this evening and repeat dose of lasix depending on patients volume status. Continue albuterol nebulizer Continue morphine for pain management. (2) Pulmonary edema Current Visit: Yes Status: Acute as stated above. Will diurese with lasix and reassess with repeat CXR. Qualifiers: Chronicity: acute Qualified Code(s): J81.0 - Acute pulmonary edema (3) DVT prophylaxis Current Visit: Yes Status: Acute on hold due to dropping hemoglobin and patient has three Chest tubes. Continue EPCDS. History of Present Illness Consult date: 02/04/17 Requesting physician: Grace Valle Reason for consult: other (post op respiratory failure ) Chief complaint: sob History of present illness: 61 y/o male presented with sob, orthopnea and dyspnea. Underwent CT Chest showing pulmonary edema, Nuclear medicine stress test showed gated EF of 28%. Patient then had LHC showing severe three vessel coronary artery disease in LAD , circumflex and RCA with EF of 25%. On 01/31 underwent CABG x2. S/p he was hemodynamically stable. CXR showed mild pleural effusion. CT Scan on 02/04 showed hematoma in the anteroir inferior mediastinum 11x6cm and a moderate right side plueral effusion. He underwent sternal reexploration and evacuation of mediastinal hematoma today. Patient s/p sternal procedure complained of sob. post operative CXR showed pulmonary edema and small left pneumothorax. Past Med Surg Social Fam HX - Past Medical History Medical history: CHF, hypertension Psychiatric history: no psych history - Past Surgical History Surgical History: no surgical history - Social History Smoking Status: Former smoker (15 pack year history) Smokeless Tobacco Status: No Alcohol use: none Drug use: none - Family History Father Living Status: Age at : 79 Cause of : AR Hx Family Cardiac Disorders: Yes Hx Family Respiratory Disorders: No Hx Family Cancer: No Hx Family GI Disorders: No Hx Family Endocrine Disorder: No Hx Family Medical Disorders: Yes Medications and Allergies No Known Home Drugs 01/26/17 [History] Allergies No Known Allergies Allergy (Verified 01/26/17 08:55) All Systems: A 10-system review of systems was performed and is negative for pertinent findings except as documented above in the HPI. Review of Systems: patient complains of sob. Denies chest pain, palpitation abdominal pain, nausea , vomiting, diarrhea, leg pain, swelling. Physical Examination Vital Signs: Vital Signs, Last 4 Hours Temp Pulse Resp BP Pulse Ox 02/04/17 11:52 16 100 02/04/17 11:17 76 02/04/17 11:13 98.4 F 85 16 114/74 100 General appearance: appears uncomfortable Eyes: nonicteric Mallampati (class): 3 Neck: no lymphadenopathy Effort: mildly labored Inspection: other (three chest tubes inserted from below sternum ) Auscultation: left: other (pleural rub ), bilateral: diminished breath sounds Cardiovascular: regular rate and rhythm Gastrointestinal: normoactive bowel sounds, non-distended Extremities: no cyanosis, no edema, no clubbing Musculoskeletal: no deformities, ROM normal normal mental status, non-focal exam mood appropriate, affect normal Results - Laboratory Findings CBC and BMP: 02/04/17 15:08 02/04/17 15:08 ABG ABG pH 7.38 pH Units (7.32-7.45) 01/31/17 20:00 ABG pCO2 41 mmHg (35-45) 01/31/17 20:00 ABG pO2 64 mmHg (85-104) L 01/31/17 20:00 ABG O2 Saturation 92 % (95-98) L 01/31/17 20:00 PT/INR, D-dimer PT 12.4 Seconds (9.4-12.1) H 02/01/17 04:19 D-Dimer 1162 ng/mLFEU (0-500) H 01/26/17 09:14 Abnormal lab findings: Abnormal lab results WBC 12.0 K/mcL (4.3-11.1) H 02/04/17 04:20 RBC 2.53 M/mcL (4.19-5.50) L 02/04/17 04:20 Hgb 7.7 g/dL (12.9-16.9) L 02/04/17 04:20 Hct 23.7 % (37.5-50.1) L 02/04/17 04:20 RDW 14.6 % (11.5-14.5) H 02/04/17 04:20 Neutrophils # 10.1 K/mcL (1.6-8.9) H 02/02/17 03:44 Monocytes # 1.9 K/mcL (0.0-1.3) H 02/02/17 03:44 PT 12.4 Seconds (9.4-12.1) H 02/01/17 04:19 D-Dimer 1162 ng/mLFEU (0-500) H 01/26/17 09:14 ABG pO2 64 mmHg (85-104) L 01/31/17 20:00 ABG O2 Saturation 92 % (95-98) L 01/31/17 20:00 ABG Hematocrit 24 % (35-51) L 01/31/17 11:08 VBG pO2 47 mmHg (25-40) H 02/03/17 01:20 VBG HCO3 28.2 mEq/L (21-27) H 02/03/17 01:20 Potassium 2.8 mEq/L (3.5-5.3) L 01/31/17 11:08 Glucose 42 mg/dL (60-95) L 01/31/17 11:08 Ionized Calcium 0.81 mmol/L (1.15-1.35) L 01/31/17 11:08 BUN 38 mg/dL (8-26) H 02/04/17 04:20 BUN/Creatinine Ratio 32 (6-26) H 02/04/17 04:20 Glucose 100 mg/dL (70-99) H 02/04/17 04:20 POC Glucose 103 (58-89) H 02/04/17 14:43 B-Natriuretic Peptide 155 pg/mL (0-100) H 02/03/17 01:20 Albumin 3.4 g/dL (3.5-5.0) L 01/31/17 05:28 Albumin/Globulin Ratio 1.0 (1.1-2.2) L 01/31/17 05:28 Ur Leukocyte Esterase Trace (Negative) H 01/31/17 05:20 Urine Microscopic WBC 5-15 per hpf (0-3) H 01/31/17 05:20 Ur Squamous Epith Cells Many per lpf (None-Few) H 01/31/17 05:20 Ur Culture Indicated? YES (NO) A 01/31/17 05:20 - Diagnostic Findings Chest x-ray: report reviewed CT scan - chest: report reviewed - Clinical Findings Intake & Output: Intake & Output 02/03/17 02/04/17 02/04/17 23:59 07:59 15:59 Intake Total 2200 / 2200 0 / 0 Output Total 275 / 275 550 / 550 300 / 300 Balance 1925 / 1925 -550 / -550 -300 / -300 Weight 111.2 kg Consult Discharge Plan - Plan Referrals: Mae Ken CNP [Advanced Practice Nurse] - (located in [facility] #[phone] please give a days notice if you need to cancel appt Please expect a new pt packet in the mail to complete) Jarod Malhotra CNP [Advanced Practice Nurse] - 02/27/17 8:00 am Lopez Ascencio MD [Partnered Physician] - 02/28/17 1:15 pm <Moody Ochoa - Last Filed: 02/04/17 16:53> Date of Encounter: 02/04/17 All Systems: A 10-system review of systems was performed and is negative for pertinent findings except as documented above in the HPI. Physical Examination Vital Signs: Vital Signs, Last 4 Hours Temp Pulse Resp BP Pulse Ox 02/04/17 16:31 108 24 120/85 98 02/04/17 16:01 106 20 119/81 98 02/04/17 15:45 105 22 129/81 98 02/04/17 15:20 104 19 126/84 98 02/04/17 15:00 102 20 138/82 02/04/17 14:53 20 100 02/04/17 14:45 101 22 137/88 100 02/04/17 14:40 97.4 F L 101 20 125/91 100 Results - Laboratory Findings CBC and BMP: 02/04/17 15:08 02/04/17 15:08 ABG ABG pH 7.38 pH Units (7.32-7.45) 02/04/17 15:43 ABG pCO2 43 mmHg (35-45) 02/04/17 15:43 ABG pO2 57 mmHg (85-104) L 02/04/17 15:43 ABG O2 Saturation 89 % (95-98) L 02/04/17 15:43 PT/INR, D-dimer PT 12.4 Seconds (9.4-12.1) H 02/01/17 04:19 D-Dimer 1162 ng/mLFEU (0-500) H 01/26/17 09:14 Abnormal lab findings: Abnormal lab results RBC 2.38 M/mcL (4.19-5.50) L 02/04/17 15:08 Hgb 7.2 g/dL (12.9-16.9) L 02/04/17 15:08 Hct 22.8 % (37.5-50.1) L 02/04/17 15:08 RDW 14.6 % (11.5-14.5) H 02/04/17 15:08 PT 12.4 Seconds (9.4-12.1) H 02/01/17 04:19 D-Dimer 1162 ng/mLFEU (0-500) H 01/26/17 09:14 ABG pO2 57 mmHg (85-104) L 02/04/17 15:43 ABG Total CO2 26.7 mEq/L (20-26) H 02/04/17 15:43 ABG O2 Saturation 89 % (95-98) L 02/04/17 15:43 ABG Hematocrit 24 % (35-51) L 01/31/17 11:08 VBG pO2 47 mmHg (25-40) H 02/03/17 01:20 VBG HCO3 28.2 mEq/L (21-27) H 02/03/17 01:20 Potassium 2.8 mEq/L (3.5-5.3) L 01/31/17 11:08 Glucose 42 mg/dL (60-95) L 01/31/17 11:08 Ionized Calcium 0.81 mmol/L (1.15-1.35) L 01/31/17 11:08 Potassium 4.8 mEq/L (3.5-4.5) H 02/04/17 15:08 BUN 34 mg/dL (8-26) H 02/04/17 15:08 BUN/Creatinine Ratio 33 (6-26) H 02/04/17 15:08 Glucose 122 mg/dL (70-99) H 02/04/17 15:08 POC Glucose 103 (58-89) H 02/04/17 14:43 B-Natriuretic Peptide 155 pg/mL (0-100) H 02/03/17 01:20 Albumin 3.4 g/dL (3.5-5.0) L 01/31/17 05:28 Albumin/Globulin Ratio 1.0 (1.1-2.2) L 01/31/17 05:28 Ur Leukocyte Esterase Trace (Negative) H 01/31/17 05:20 Urine Microscopic WBC 5-15 per hpf (0-3) H 01/31/17 05:20 Ur Squamous Epith Cells Many per lpf (None-Few) H 01/31/17 05:20 Ur Culture Indicated? YES (NO) A 01/31/17 05:20 - Clinical Findings Intake & Output: Intake & Output 02/04/17 02/04/17 02/04/17 07:59 15:59 23:59 Intake Total 0 / 0 0 / 0 Output Total 550 / 550 1025 / 1025 675 / 675 Balance -550 / -550 -1025 / -1025 -675 / -675 Weight 111.2 kg - Attending Attestation I examined this patient and my medical decision-making was reviewed with the TECHNICAL SERVICES ANALYST/PA/Advanced Practice Nurse/Resident Physician. I agree with the documented findings, disposition and treatment plan as described except to the extent set forth below. Patient seen and examined. Labs, radiology, chart personally reviewed. 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 I suspect pulmonary edema is the main reason for acute hypoxic respiratory failure, which is already better with diuresis. Continue Lasix as much as blood pressure tolerates and renal function and I still feel patient will benefit from Morphine and encourage incentive spirometry. Patient has a small pneumothorax, however he has already chest tubes. Follow-up chest x-ray in about 6 hours to make sure it is stable. Patient is already on bronchodilators. Cardiovascular: stable GI: Nutrition per dietary and GI prophylaxis per routine Heme: DVT prophylaxis per routine Renal; urine out put and renal funtion reviewed Endorcine: blood glucose is monitored Skin: skin care to prevent pressure ulcers per nursing routine care Thank you very much for the consult, we will continue monitoring
[2017-02-04 15:54] LABS: ABG Base Excess 0.2 mEq/L (-2.0 to 3.0); ABG HCO3 25.4 mEQ/L (21-27); ABG Oxygen Saturation 89 % (95-98); ABG PCO2 43 mmHg (35-45); ABG PH 7.38 pH Units (7.32-7.45); ABG PO2 57 mmHg (85-104); ABG TCO2 26.7 mEq/L (20-26)
[2017-02-04 15:55] LABS: Blood Gas FiO2 32 %
[2017-02-04] MEDS: ceFAZolin 2,000 MG in D5% in Water 100 ML IVPB SCH (21:30)
[2017-02-04] MEDS: *HR* OxyCODONE/APAP 5/325 TABLET PO PRN (22:36)
[2017-02-05] MEDS: *HR* Morphine 2 MG/ML SYRINGE IVP PRN (00:43)
[2017-02-05] MEDS: Albuterol 2.5 MG/3 ML NEBULIZER IH SCH ×5 (03:21→20:27)
[2017-02-05 04:11] LABS: BUN/Creatinine Ratio 29 (6-26); Blood Urea Nitrogen 35 mg/dL (8-26); Calcium 8.9 mg/dL (8.6-10.8); Carbon Dioxide 22 mEq/L (19-29); Chloride 105 mEq/L (98-109); Glucose 94 mg/dL (70-99); Osmolality,Calculated 292 (280-300); Potassium 4.6 mEq/L (3.5-4.5); Sodium 137 mEq/L (136-145); eGFR For African Americans > 60 (> 60); eGFR For Non-African Americans > 60 (> 60)
[2017-02-05 04:55] LABS: Basophils % 0.3 %; Eosinophils # 0.2 K/mcL (0.0-0.6); Eosinophils % 1.2 %; Hematocrit 26.1 % (37.5-50.1); Hemoglobin 8.3 g/dL (12.9-16.9); Lymphocytes # 1.3 K/mcL (0.6-4.6); Lymphocytes % 9.1 %; Mean Corpuscular HGB Conc 31.8 g/dL (31.6-35.5); Mean Corpuscular Hemoglobin 30.2 pg (28.0-33.3); Mean Corpuscular Volume 94.9 fL (83.0-100.0); Mean Platelet Volume 11.1 fL (9.4-12.4); Monocytes # 1.8 K/mcL (0.0-1.3); Neutrophils # 10.3 K/mcL (1.6-8.9); Platelet Count 287 K/mcL (140-400); Red Blood Count 2.75 M/mcL (4.19-5.50); Red Cell Distribution Width 14.8 % (11.5-14.5); Segmented Neutrophils % 75.4 %
[2017-02-05] MEDS: ceFAZolin 2,000 MG in D5% in Water 100 ML IVPB SCH (05:21)
[2017-02-05] MEDS: *HR* OxyCODONE/APAP 5/325 TABLET PO PRN ×2 (05:21→11:51)
[2017-02-05] MEDS ORDERED: Furosemide 20 MG/2 ML VIAL IVP ONE (06:55)
--- NOTE | 2017-02-05 07:15 | Cardiothoracic Progress Note ---
Date of Encounter: 02/05/17 Time of Encounter: 07:13 - Assessment and plan (1) CAD (coronary artery disease) Current Visit: Yes Status: Acute The patient is recovering well from his mediastinal exploration and evacuation of hematoma. The patient states that his breathing is us labored today. He feels that he is "getting enough air". The patient will continue with his diuresis. He will be transferred to stepdown unit later today. The assessment and plan as outlined above was discussed with the patient and/or family members who expressed understanding and agreement. All questions were answered. Qualifiers: Coronary Disease-Associated Artery/Lesion type: [place] artery [place] vs. transplanted heart: [place] heart Associated angina: without angina Qualified Code(s): I25.10 - Atherosclerotic heart disease of [place] coronary artery without angina pectoris - Subjective Procedure(s) Performed: POD#5 S/P CABG2 POD#1 S/P Mediastinal exploration with evacuation of hematoma Interval history: The patient is sitting comfortably in a chair at the bedside. His breathing is less labored this morning and he is more comfortable. Vital Signs, Last 4 Hours Temp Pulse Resp BP Pulse Ox 02/05/17 06:00 97 28 101/67 97 02/05/17 05:00 96 44 97/75 100 02/05/17 04:48 98.4 F 02/05/17 04:00 96 40 106/62 91 02/05/17 03:56 98 02/05/17 03:27 20 94 Oxgyen Flow Rate Oxygen Flow Rate (LPM) 2 Clinical Data, last 8 Hours Output, Chest Tube Drainage 10 Amount [Mediastinal #2] Output, Chest Tube Drainage 5 Amount [Mediastinal #2] Output, Chest Tube Drainage 56 Amount [Mediastinal #1] Output, Chest Tube Drainage 55 Amount [Mediastinal #1] Output, Urine Amount 600 Output, Urine Amount 350 Weight 02/03/17 02/04/17 02/05/17 23:59 23:59 23:59 Weight 113.3 kg 113.3 kg - Physical Examination General: Conversant, No Apparent Distress Neck: No JVD, Normal carotid pulses Cardiac: Reg Rate and Rhythm, Normal S1 and S2, No Murmur Incision: No signs of infection, Dry/intact dressing Sternum: Stable Chest tubes: Minimal drainage, Air leak (Small intermittent air leak and chest tube #1) Lungs: Normal Breath Sounds, No Wheeze, Rales, Rhonchi Neuro: Alert and responsive, No focal deficits noted Vascular: Normal capillary refill Musculoskeletal: No Chest Wall Tenderness Extremities: No Clubbing, No Cyanosis, No Edema - Labs 02/05/17 04:21 02/05/17 03:30 Lab Results, Last 24 hours 02/04/17 02/04/17 02/05/17 15:08 15:08 03:30 WBC 9.3 Hgb 7.2 L Hct 22.8 L Plt Count 178 Sodium 138 137 Potassium 4.8 H 4.6 H Chloride 108 105 Carbon Dioxide 21 22 BUN 34 H 35 H Creatinine 1.03 1.21 Glucose 122 H 94 Calcium 8.6 8.9 02/05/17 04:21 WBC 13.7 H Hgb 8.3 L Hct 26.1 L Plt Count 287 D Sodium Potassium Chloride Carbon Dioxide BUN Creatinine Glucose Calcium - Imaging Chest Xray: pending - VTE Documentation of Mechanical Device: Intermittent pneumatic compression device Consult Discharge Plan - Plan Referrals: Mae Ken CNP [Advanced Practice Nurse] - (located in [facility] #[phone] please give a days notice if you need to cancel appt Please expect a new pt packet in the mail to complete) Jarod Malhotra CNP [Advanced Practice Nurse] - 02/27/17 8:00 am Lopez Ascencio MD [Partnered Physician] - 02/28/17 1:15 pm
[2017-02-05] MEDS: Insulin LISPRO 300 UNITS/3 ML VIAL SQ SCH (08:29)
[2017-02-05] MEDS: Lisinopril 20 MG TABLET PO SCH (08:35)
[2017-02-05] MEDS: Aspirin 81 MG TAB.CHEW PO SCH (08:36)
[2017-02-05] MEDS: Chlorhexidine Rinse 15 ML MOUTHWASH MM SCH ×2 (08:36→21:26)
--- NOTE | 2017-02-05 08:49 | Pulmonology Progress Note ---
<Asad Puga - Last Filed: 02/05/17 09:32> Date of Encounter: 02/05/17 Time of Encounter: 08:47 Assessment and Plan (1) Shortness of breath Current Visit: Yes Status: Acute 61 y/o male hx of HTN, former smoker s/p CABG on 01/31 with post op complication of mediastinal hematoma evacuated this morning. S/p evacuation of mediastinal hematoma patient had SOB. LHC showed EF of 25% hx of smoking CXR s/p evaucation of mediastinal hematoma shows diffuse pulmonary edema and worsening of right plueral effusion and small left pneumothorax. Patient has three chest tubes: one in each lung and one in mediastinum. ABG shows pH 7.38 and PCO2 of 43 with PO2 of 57 on 3L O2 with SPO2 of 99%. With systolic HF and fluid administration, patient has become fluid overloaded. Patient diuresed well with 40mg lasix. Repeat CXR shows interval improvement in pulmonary venous congestion Pedal edema 2+ I/O last 24 hours is -3240 Will give another lasix 20mg IV. (2) Pulmonary edema Current Visit: Yes Status: Acute as stated above. improving Continue diuresing. Qualifiers: Chronicity: acute Qualified Code(s): J81.0 - Acute pulmonary edema (3) DVT prophylaxis Current Visit: Yes Status: Acute on hold due to dropping hemoglobin and patient has three Chest tubes. Continue EPCDS. Subjective Principal diagnosis: CMP, CAD Interval history: NO acute events overnight. Patient complains of back spasms. Improved sob. Denies chest pain, palpitations, leg cramps/pain. Objective PUL Vital signs: Last Vital Signs Temp 98.3 F 02/05/17 07:32 Pulse 97 02/05/17 06:00 Resp 16 02/05/17 07:37 BP 101/67 02/05/17 06:00 Pulse Ox 96 02/05/17 07:37 General appearance: no acute distress Eyes: nonicteric ENT: oropharynx moist Neck: supple Effort: mildly labored Auscultation: left: other (pleural rub), bilateral: diminished breath sounds Percussion: bilateral: not dull Tactile fremitus: bilateral: normal Cardiovascular: regular rate and rhythm Gastrointestinal: normoactive bowel sounds, non-distended Integumentary: normal Extremities: no cyanosis, no clubbing, pulses normal, edema (2+ pitting b/l ) Musculoskeletal: no deformities, ROM normal normal mental status, non-focal exam mood appropriate, affect normal Results - Laboratory Findings CBC and BMP: 02/05/17 04:21 02/05/17 03:30 ABG ABG pH 7.38 pH Units (7.32-7.45) 02/04/17 15:43 ABG pCO2 43 mmHg (35-45) 02/04/17 15:43 ABG pO2 57 mmHg (85-104) L 02/04/17 15:43 ABG O2 Saturation 89 % (95-98) L 02/04/17 15:43 PT/INR, D-dimer PT 12.4 Seconds (9.4-12.1) H 02/01/17 04:19 D-Dimer 1162 ng/mLFEU (0-500) H 01/26/17 09:14 Abnormal lab findings: Abnormal lab results WBC 13.7 K/mcL (4.3-11.1) H 02/05/17 04:21 RBC 2.75 M/mcL (4.19-5.50) L 02/05/17 04:21 Hgb 8.3 g/dL (12.9-16.9) L 02/05/17 04:21 Hct 26.1 % (37.5-50.1) L 02/05/17 04:21 RDW 14.8 % (11.5-14.5) H 02/05/17 04:21 Neutrophils # 10.3 K/mcL (1.6-8.9) H 02/05/17 04:21 Monocytes # 1.8 K/mcL (0.0-1.3) H 02/05/17 04:21 PT 12.4 Seconds (9.4-12.1) H 02/01/17 04:19 D-Dimer 1162 ng/mLFEU (0-500) H 01/26/17 09:14 ABG pO2 57 mmHg (85-104) L 02/04/17 15:43 ABG Total CO2 26.7 mEq/L (20-26) H 02/04/17 15:43 ABG O2 Saturation 89 % (95-98) L 02/04/17 15:43 ABG Hematocrit 24 % (35-51) L 01/31/17 11:08 VBG pO2 47 mmHg (25-40) H 02/03/17 01:20 VBG HCO3 28.2 mEq/L (21-27) H 02/03/17 01:20 Potassium 2.8 mEq/L (3.5-5.3) L 01/31/17 11:08 Glucose 42 mg/dL (60-95) L 01/31/17 11:08 Ionized Calcium 0.81 mmol/L (1.15-1.35) L 01/31/17 11:08 Potassium 4.6 mEq/L (3.5-4.5) H 02/05/17 03:30 BUN 35 mg/dL (8-26) H 02/05/17 03:30 BUN/Creatinine Ratio 29 (6-26) H 02/05/17 03:30 POC Glucose 117 (58-89) H 02/05/17 07:22 B-Natriuretic Peptide 155 pg/mL (0-100) H 02/03/17 01:20 Albumin 3.4 g/dL (3.5-5.0) L 01/31/17 05:28 Albumin/Globulin Ratio 1.0 (1.1-2.2) L 01/31/17 05:28 Ur Leukocyte Esterase Trace (Negative) H 01/31/17 05:20 Urine Microscopic WBC 5-15 per hpf (0-3) H 01/31/17 05:20 Ur Squamous Epith Cells Many per lpf (None-Few) H 01/31/17 05:20 Ur Culture Indicated? YES (NO) A 01/31/17 05:20 - Diagnostic Findings Chest x-ray: report reviewed - Clinical Findings Intake & Output: Intake & Output 02/04/17 02/05/17 02/05/17 23:59 07:59 15:59 Intake Total 300 / 300 Output Total 1964 / 1964 1076 / 1076 Balance -1665 / -1665 -1076 / -1076 Weight 113.3 kg 113.3 kg - VTE Documentation of Mechanical Device: Intermittent pneumatic compression device Consult Discharge Plan - Plan Referrals: Mae Ken, SPECIFICATIONS CHECKER [Advanced Practice Nurse] - (located in [facility] #[phone] please give a days notice if you need to cancel appt Please expect a new pt packet in the mail to complete) Jarod Malhotra CNP [Advanced Practice Nurse] - 02/27/17 8:00 am Lopez Ascencio MD [Partnered Physician] - 02/28/17 1:15 pm <Moody Ochoa - Last Filed: 02/05/17 17:39> Date of Encounter: 02/05/17 Objective PUL Vital signs: Last Vital Signs Temp 98.9 F 02/05/17 12:00 Pulse 96 02/05/17 16:00 Resp 24 02/05/17 16:00 BP 134/81 02/05/17 16:00 Pulse Ox 97 02/05/17 16:00 Results - Laboratory Findings CBC and BMP: 02/05/17 04:21 02/05/17 03:30 ABG ABG pH 7.38 pH Units (7.32-7.45) 02/04/17 15:43 ABG pCO2 43 mmHg (35-45) 02/04/17 15:43 ABG pO2 57 mmHg (85-104) L 02/04/17 15:43 ABG O2 Saturation 89 % (95-98) L 02/04/17 15:43 PT/INR, D-dimer PT 12.4 Seconds (9.4-12.1) H 02/01/17 04:19 D-Dimer 1162 ng/mLFEU (0-500) H 01/26/17 09:14 Abnormal lab findings: Abnormal lab results WBC 13.7 K/mcL (4.3-11.1) H 02/05/17 04:21 RBC 2.75 M/mcL (4.19-5.50) L 02/05/17 04:21 Hgb 8.3 g/dL (12.9-16.9) L 02/05/17 04:21 Hct 26.1 % (37.5-50.1) L 02/05/17 04:21 RDW 14.8 % (11.5-14.5) H 02/05/17 04:21 Neutrophils # 10.3 K/mcL (1.6-8.9) H 02/05/17 04:21 Monocytes # 1.8 K/mcL (0.0-1.3) H 02/05/17 04:21 PT 12.4 Seconds (9.4-12.1) H 02/01/17 04:19 D-Dimer 1162 ng/mLFEU (0-500) H 01/26/17 09:14 ABG pO2 57 mmHg (85-104) L 02/04/17 15:43 ABG Total CO2 26.7 mEq/L (20-26) H 02/04/17 15:43 ABG O2 Saturation 89 % (95-98) L 02/04/17 15:43 ABG Hematocrit 24 % (35-51) L 01/31/17 11:08 VBG pO2 47 mmHg (25-40) H 02/03/17 01:20 VBG HCO3 28.2 mEq/L (21-27) H 02/03/17 01:20 Potassium 2.8 mEq/L (3.5-5.3) L 01/31/17 11:08 Glucose 42 mg/dL (60-95) L 01/31/17 11:08 Ionized Calcium 0.81 mmol/L (1.15-1.35) L 01/31/17 11:08 Potassium 4.6 mEq/L (3.5-4.5) H 02/05/17 03:30 BUN 35 mg/dL (8-26) H 02/05/17 03:30 BUN/Creatinine Ratio 29 (6-26) H 02/05/17 03:30 POC Glucose 117 (58-89) H 02/05/17 07:22 B-Natriuretic Peptide 155 pg/mL (0-100) H 02/03/17 01:20 Albumin 3.4 g/dL (3.5-5.0) L 01/31/17 05:28 Albumin/Globulin Ratio 1.0 (1.1-2.2) L 01/31/17 05:28 Ur Leukocyte Esterase Trace (Negative) H 01/31/17 05:20 Urine Microscopic WBC 5-15 per hpf (0-3) H 01/31/17 05:20 Ur Squamous Epith Cells Many per lpf (None-Few) H 01/31/17 05:20 Ur Culture Indicated? YES (NO) A 01/31/17 05:20 - Clinical Findings Intake & Output: Intake & Output 02/05/17 02/05/17 02/05/17 07:59 15:59 23:59 Intake Total 360 / 360 Output Total 1076 / 1076 840 / 840 Balance -1076 / -1076 -480 / -480 Weight 113.3 kg - Attending Attestation I examined this patient and my medical decision-making was reviewed with the THREAD GRINDER TOOL/PA/Advanced Practice Nurse/Resident Physician. I agree with the documented findings, disposition and treatment plan as described except to the extent set forth below. Patient seen and examined. Labs, radiology, chart personally reviewed. Agree with resident's history and physical, assessment, plan with following comments: IMPROVEMENT ADVISOR: Patient follows commands, Pulmonary: Acceptable oxygenation and ventilation. Patient feeling much better with diuresis Cardiovascular: stable GI: Nutrition per dietary and GI prophylaxis per routine Patient has muscle spasm and he has received Ativan for that, if continue to have them, consider Flexeril.
[2017-02-05] MEDS ORDERED: *HR* LORazepam 2 MG/ML VIAL IVP PRN (09:03)
[2017-02-05] MEDS ORDERED: Ondansetron 4 MG/2 ML VIAL IVP PRN (09:03)
[2017-02-05] MEDS ORDERED: Naloxone 0.4 MG/ML INJ IVP PRN (09:03)
[2017-02-05] MEDS ORDERED: D5% in Water 1,000 ML IVC PRN (09:03)
[2017-02-05] MEDS ORDERED: *HR* Dextrose 50 % in Water (Syg) 50 ML SYRINGE IVP PRN (09:03)
[2017-02-05] MEDS ORDERED: *HR* Morphine 2 MG/ML SYRINGE IVP PRN ×2 (09:03)
[2017-02-05] MEDS ORDERED: Dextrose Gel 15 GM PO PRN ×2 (09:03)
[2017-02-05] MEDS: *HR* Heparin 5,000 UNIT/ML VIAL SQ SCH ×2 (11:51→17:38)
[2017-02-05] MEDS ORDERED: Insulin LISPRO 300 UNITS/3 ML VIAL SQ SCH (21:00)
[2017-02-06] MEDS: Albuterol 2.5 MG/3 ML NEBULIZER IH SCH ×7 (00:01→23:27)
[2017-02-06] MEDS: *HR* Heparin 5,000 UNIT/ML VIAL SQ SCH ×2 (06:13→17:59)
[2017-02-06 06:38] LABS: Hematocrit 23.7 % (37.5-50.1); Hemoglobin 7.6 g/dL (12.9-16.9); Mean Corpuscular HGB Conc 32.1 g/dL (31.6-35.5); Mean Corpuscular Hemoglobin 30.2 pg (28.0-33.3); Mean Platelet Volume 10.3 fL (9.4-12.4); Platelet Count 294 K/mcL (140-400); Red Blood Count 2.52 M/mcL (4.19-5.50); Red Cell Distribution Width 14.6 % (11.5-14.5)
[2017-02-06 06:39] LABS: BUN/Creatinine Ratio 28 (6-26); Blood Urea Nitrogen 28 mg/dL (8-26); Calcium 8.7 mg/dL (8.6-10.8); Carbon Dioxide 23 mEq/L (19-29); Chloride 103 mEq/L (98-109); Glucose 92 mg/dL (70-99); Osmolality,Calculated 287 (280-300); Potassium 4.4 mEq/L (3.5-4.5); Sodium 136 mEq/L (136-145); eGFR For African Americans > 60 (> 60); eGFR For Non-African Americans > 60 (> 60)
[2017-02-06] MEDS ORDERED: Furosemide 20 MG/2 ML VIAL IVP ONE (08:12)
--- NOTE | 2017-02-06 08:19 | Pulmonology Progress Note ---
<Asad Puga - Last Filed: 02/06/17 08:13> Date of Encounter: 02/06/17 Time of Encounter: 08:13 Assessment and Plan (1) Shortness of breath Current Visit: Yes Status: Acute 61 y/o male hx of HTN, former smoker s/p CABG on 01/31 with post op complication of mediastinal hematoma evacuated this morning. S/p evacuation of mediastinal hematoma patient had SOB. LHC showed EF of 25% hx of smoking CXR s/p evaucation of mediastinal hematoma shows diffuse pulmonary edema and worsening of right plueral effusion and small left pneumothorax. Patient has three chest tubes: one in each lung and one in mediastinum. ABG shows pH 7.38 and PCO2 of 43 with PO2 of 57 on 3L O2 with SPO2 of 99%. With systolic HF and fluid administration, patient has become fluid overloaded. Patient diuresing with lasix Repeat CXR shows interval improvement in pulmonary venous congestion Pedal edema 2+ I/O last 24 hours is -2296 Will give another lasix 20mg IV. (2) Pulmonary edema Current Visit: Yes Status: Acute as stated above. improving Continue diuresing. Qualifiers: Chronicity: acute Qualified Code(s): J81.0 - Acute pulmonary edema (3) DVT prophylaxis Current Visit: Yes Status: Acute on hold due to dropping hemoglobin and patient has three Chest tubes. Continue EPCDS. Subjective Principal diagnosis: CMP, CAD Interval history: NO acute events overnight. Patient states back spasms have improved. Improved sob. Denies chest pain, palpitations, leg cramps/pain. Objective PUL Vital signs: Last Vital Signs Temp 98.1 F 02/06/17 07:55 Pulse 101 02/06/17 06:00 Resp 18 02/06/17 06:00 BP 127/83 02/06/17 06:00 Pulse Ox 96 02/06/17 06:00 General appearance: no acute distress Eyes: nonicteric ENT: oropharynx moist Neck: supple Effort: normal Auscultation: bilateral: clear Percussion: bilateral: not dull Tactile fremitus: bilateral: normal Cardiovascular: regular rate and rhythm, other (three chest tubes outputing ) Gastrointestinal: normoactive bowel sounds, non-distended Integumentary: normal Extremities: no cyanosis, no clubbing, edema (2+) normal mental status, non-focal exam mood appropriate, affect normal Results - Laboratory Findings CBC and BMP: 02/06/17 06:08 02/06/17 06:08 ABG ABG pH 7.38 pH Units (7.32-7.45) 02/04/17 15:43 ABG pCO2 43 mmHg (35-45) 02/04/17 15:43 ABG pO2 57 mmHg (85-104) L 02/04/17 15:43 ABG O2 Saturation 89 % (95-98) L 02/04/17 15:43 PT/INR, D-dimer PT 12.4 Seconds (9.4-12.1) H 02/01/17 04:19 D-Dimer 1162 ng/mLFEU (0-500) H 01/26/17 09:14 Abnormal lab findings: Abnormal lab results WBC 11.2 K/mcL (4.3-11.1) H 02/06/17 06:08 RBC 2.52 M/mcL (4.19-5.50) L 02/06/17 06:08 Hgb 7.6 g/dL (12.9-16.9) L 02/06/17 06:08 Hct 23.7 % (37.5-50.1) L 02/06/17 06:08 RDW 14.6 % (11.5-14.5) H 02/06/17 06:08 Neutrophils # 10.3 K/mcL (1.6-8.9) H 02/05/17 04:21 Monocytes # 1.8 K/mcL (0.0-1.3) H 02/05/17 04:21 PT 12.4 Seconds (9.4-12.1) H 02/01/17 04:19 D-Dimer 1162 ng/mLFEU (0-500) H 01/26/17 09:14 ABG pO2 57 mmHg (85-104) L 02/04/17 15:43 ABG Total CO2 26.7 mEq/L (20-26) H 02/04/17 15:43 ABG O2 Saturation 89 % (95-98) L 02/04/17 15:43 ABG Hematocrit 24 % (35-51) L 01/31/17 11:08 VBG pO2 47 mmHg (25-40) H 02/03/17 01:20 VBG HCO3 28.2 mEq/L (21-27) H 02/03/17 01:20 Potassium 2.8 mEq/L (3.5-5.3) L 01/31/17 11:08 Glucose 42 mg/dL (60-95) L 01/31/17 11:08 Ionized Calcium 0.81 mmol/L (1.15-1.35) L 01/31/17 11:08 BUN 28 mg/dL (8-26) H 02/06/17 06:08 BUN/Creatinine Ratio 28 (6-26) H 02/06/17 06:08 POC Glucose 117 (58-89) H 02/05/17 07:22 B-Natriuretic Peptide 155 pg/mL (0-100) H 02/03/17 01:20 Albumin 3.4 g/dL (3.5-5.0) L 01/31/17 05:28 Albumin/Globulin Ratio 1.0 (1.1-2.2) L 01/31/17 05:28 Ur Leukocyte Esterase Trace (Negative) H 01/31/17 05:20 Urine Microscopic WBC 5-15 per hpf (0-3) H 01/31/17 05:20 Ur Squamous Epith Cells Many per lpf (None-Few) H 01/31/17 05:20 Ur Culture Indicated? YES (NO) A 01/31/17 05:20 - Diagnostic Findings Chest x-ray: report reviewed - Clinical Findings Intake & Output: Intake & Output 02/05/17 02/06/17 02/06/17 23:59 07:59 15:59 Intake Total 711 / 711 Output Total 740 / 740 855 / 855 Balance -740 / -740 -144 / -144 - VTE Documentation of Mechanical Device: Intermittent pneumatic compression device Consult Discharge Plan - Plan Referrals: Mae Ken CNP [Advanced Practice Nurse] - (located in [facility] #[phone] please give a days notice if you need to cancel appt Please expect a new pt packet in the mail to complete) Jarod Malhotra CNP [Advanced Practice Nurse] - 02/27/17 8:00 am Lopez Ascencio MD [Partnered Physician] - 02/28/17 1:15 pm <Moody Ochoa - Last Filed: 02/06/17 15:56> Date of Encounter: 02/06/17 Objective PUL Vital signs: Last Vital Signs Temp 98.7 F 02/06/17 15:45 Pulse 88 02/06/17 15:09 Resp 18 02/06/17 15:48 BP 116/68 02/06/17 15:09 Pulse Ox 100 02/06/17 15:48 Results - Laboratory Findings CBC and BMP: 02/06/17 06:08 02/06/17 06:08 ABG ABG pH 7.38 pH Units (7.32-7.45) 02/04/17 15:43 ABG pCO2 43 mmHg (35-45) 02/04/17 15:43 ABG pO2 57 mmHg (85-104) L 02/04/17 15:43 ABG O2 Saturation 89 % (95-98) L 02/04/17 15:43 PT/INR, D-dimer PT 12.4 Seconds (9.4-12.1) H 02/01/17 04:19 D-Dimer 1162 ng/mLFEU (0-500) H 01/26/17 09:14 Abnormal lab findings: Abnormal lab results WBC 11.2 K/mcL (4.3-11.1) H 02/06/17 06:08 RBC 2.52 M/mcL (4.19-5.50) L 02/06/17 06:08 Hgb 7.6 g/dL (12.9-16.9) L 02/06/17 06:08 Hct 23.7 % (37.5-50.1) L 02/06/17 06:08 RDW 14.6 % (11.5-14.5) H 02/06/17 06:08 Neutrophils # 10.3 K/mcL (1.6-8.9) H 02/05/17 04:21 Monocytes # 1.8 K/mcL (0.0-1.3) H 02/05/17 04:21 PT 12.4 Seconds (9.4-12.1) H 02/01/17 04:19 D-Dimer 1162 ng/mLFEU (0-500) H 01/26/17 09:14 ABG pO2 57 mmHg (85-104) L 02/04/17 15:43 ABG Total CO2 26.7 mEq/L (20-26) H 02/04/17 15:43 ABG O2 Saturation 89 % (95-98) L 02/04/17 15:43 ABG Hematocrit 24 % (35-51) L 01/31/17 11:08 VBG pO2 47 mmHg (25-40) H 02/03/17 01:20 VBG HCO3 28.2 mEq/L (21-27) H 02/03/17 01:20 Potassium 2.8 mEq/L (3.5-5.3) L 01/31/17 11:08 Glucose 42 mg/dL (60-95) L 01/31/17 11:08 Ionized Calcium 0.81 mmol/L (1.15-1.35) L 01/31/17 11:08 BUN 28 mg/dL (8-26) H 02/06/17 06:08 BUN/Creatinine Ratio 28 (6-26) H 02/06/17 06:08 POC Glucose 117 (58-89) H 02/05/17 07:22 B-Natriuretic Peptide 155 pg/mL (0-100) H 02/03/17 01:20 Albumin 3.4 g/dL (3.5-5.0) L 01/31/17 05:28 Albumin/Globulin Ratio 1.0 (1.1-2.2) L 01/31/17 05:28 Ur Leukocyte Esterase Trace (Negative) H 01/31/17 05:20 Urine Microscopic WBC 5-15 per hpf (0-3) H 01/31/17 05:20 Ur Squamous Epith Cells Many per lpf (None-Few) H 01/31/17 05:20 Ur Culture Indicated? YES (NO) A 01/31/17 05:20 - Clinical Findings Intake & Output: Intake & Output 02/05/17 02/06/17 02/06/17 23:59 07:59 15:59 Intake Total 711 / 711 680 / 680 Output Total 740 / 740 855 / 855 995 / 995 Balance -740 / -740 -144 / -144 -315 / -315 - Attending Attestation I examined this patient and my medical decision-making was reviewed with the INFORMATION TECH/PA/Advanced Practice Nurse/Resident Physician. I agree with the documented findings, disposition and treatment plan as described except to the extent set forth below. Patient seen and examined. Labs, radiology, chart personally reviewed. Agree with resident's history and physical, assessment, plan with following comments: ENGLISH COMPOSITION TEACHER: Patient follows commands, Pulmonary: Acceptable oxygenation and ventilation. Patient is feeling better with diuresis. Continue incentive spirometry Cardiovascular: stable GI: Nutrition per dietary and GI prophylaxis per routine Heme: DVT prophylaxis per routine
--- NOTE | 2017-02-06 09:16 | Cardiothoracic Progress Note ---
Date of Encounter: 02/06/17 Time of Encounter: 09:12 - Assessment and plan (1) Congestive heart failure Current Visit: Yes Status: Acute I will give the patient 1 unit of packed red blood cells for hemoglobin of 7.6 and sinus tachycardia. I will increase his Lopressor dosage. I will add low- dose IV Lasix. The chest tubes were removed. The pacing wires were also removed. We will check a stat portable chest x-ray. The patient has transfer orders to the floor and is awaiting a bed. Qualifiers: Congestive heart failure type: systolic Congestive heart failure chronicity : acute on chronic Qualified Code(s): I50.23 - Acute on chronic systolic ( congestive) heart failure - Subjective Interval history: The patient has no complaints. He states that his breathing is better. Vital Signs, Last 4 Hours Temp Pulse Resp BP Pulse Ox 02/06/17 08:39 18 96 02/06/17 07:55 98.1 F 02/06/17 06:00 101 18 127/83 96 Oxgyen Flow Rate Oxygen Flow Rate (LPM) 3 Clinical Data, last 8 Hours Output, Chest Tube Drainage 10 Amount [Mediastinal #2] Output, Chest Tube Drainage 10 Amount [Mediastinal #1] Output, Urine Amount 400 Weight 02/04/17 02/05/17 02/06/17 23:59 23:59 23:59 Weight 113.3 kg 113.3 kg Lungs are clear to percussion and auscultation. Heart is in a sinus tachycardia. All incisions are healing well without signs of infection and the sternum is stable. Chest tube drainage is minimal and there are no air leaks. - Labs 02/06/17 06:08 02/06/17 06:08 Lab Results, Last 24 hours 02/06/17 02/06/17 06:08 06:08 WBC 11.2 H Hgb 7.6 L Hct 23.7 L Plt Count 294 Sodium 136 Potassium 4.4 Chloride 103 Carbon Dioxide 23 BUN 28 H Creatinine 1.00 Glucose 92 Calcium 8.7 - VTE Documentation of Mechanical Device: Intermittent pneumatic compression device Consult Discharge Plan - Plan Referrals: Mae Ken, FACTORY ASSEMBLER [Advanced Practice Nurse] - (located in [facility] #[phone] please give a days notice if you need to cancel appt Please expect a new pt packet in the mail to complete) Jarod Malhotra CNP [Advanced Practice Nurse] - 02/27/17 8:00 am Lopez Ascencio MD [Partnered Physician] - 02/28/17 1:15 pm
[2017-02-06] MEDS: *HR* OxyCODONE/APAP 5/325 TABLET PO PRN ×2 (09:47→20:40)
[2017-02-06] MEDS: Aspirin 81 MG TAB.CHEW PO SCH (09:47)
[2017-02-06] MEDS: Lisinopril 20 MG TABLET PO SCH (09:47)
--- NOTE | 2017-02-06 09:47 | Anesthesia Evaluation Post Op ---
Date of Encounter: 02/05/17 Time of Encounter: 15:30 - Vital Signs Vital Signs: Selected Entries 02/05/17 12:00 Temperature 98.9 F Pulse Rate 89 Respiratory Rate 18 Blood Pressure 93/70 O2 Sat by Pulse Oximetry 96 - Lungs Lungs: Clear Ascult./Percussion - Airway Airway: Non-obstructed - Cardiovascular Regular Rate - Mental Status Mental Status: Alert & Oriented, Answers Appropriately - Pain Pain Scale: 2 Pain Scale used: Numeric (1 - 10) - Nausea Vomiting Nausea Vomiting: Not Present - Hydration Hydration: Tolerates oral liquids, Able to void Notes: 02/06/17 09:47 Breathing is better, getting out of bed to urinate, sleeping on side - Discharge PostOp Status: Transfer Patient to floor (Per CT surgery orders)
[2017-02-06] MEDS: Furosemide 20 MG/2 ML VIAL IVP SCH ×2 (09:48→20:40)
[2017-02-06] MEDS: Chlorhexidine Rinse 15 ML MOUTHWASH MM SCH ×2 (09:48→20:00)
[2017-02-06] MEDS ORDERED: 0.9 % Sodium Chloride 500 ML ONE (14:47)
[2017-02-07 01:22] LABS: Basophils # 0.1 K/mcL (0.0-0.2); Basophils % 0.5 %; Eosinophils # 0.9 K/mcL (0.0-0.6); Hematocrit 24.8 % (37.5-50.1); Hemoglobin 8.2 g/dL (12.9-16.9); Immature Granulocytes % 2.5 % (0-4); Lymphocytes # 1.4 K/mcL (0.6-4.6); Lymphocytes % 10.9 %; Mean Corpuscular HGB Conc 33.1 g/dL (31.6-35.5); Mean Corpuscular Hemoglobin 30.1 pg (28.0-33.3); Mean Corpuscular Volume 91.2 fL (83.0-100.0); Mean Platelet Volume 10.2 fL (9.4-12.4); Monocytes # 1.8 K/mcL (0.0-1.3); Monocytes % 14.1 %; Nucleated Red Blood Cells 0.2 /100 WBC (0); Platelet Count 306 K/mcL (140-400); Red Blood Count 2.72 M/mcL (4.19-5.50); Red Cell Distribution Width 15.3 % (11.5-14.5)
[2017-02-07 01:38] LABS: BUN/Creatinine Ratio 26 (6-26); Blood Urea Nitrogen 24 mg/dL (8-26); Calcium 8.6 mg/dL (8.6-10.8); Carbon Dioxide 28 mEq/L (19-29); Chloride 102 mEq/L (98-109); Glucose 99 mg/dL (70-99); Osmolality,Calculated 286 (280-300); Potassium 4.7 mEq/L (3.5-4.5); Sodium 136 mEq/L (136-145); eGFR For African Americans > 60 (> 60); eGFR For Non-African Americans > 60 (> 60)
[2017-02-07 01:42] LABS: Neutrophils # 8.3 K/mcL (1.6-8.9)
[2017-02-07 02:03] LABS: Platelet Estimate Normal (Normal)
[2017-02-07] MEDS: *HR* OxyCODONE/APAP 5/325 TABLET PO PRN ×2 (03:23→20:22)
[2017-02-07] MEDS: Albuterol 2.5 MG/3 ML NEBULIZER IH SCH ×5 (03:56→20:29)
[2017-02-07] MEDS: *HR* Heparin 5,000 UNIT/ML VIAL SQ SCH ×2 (05:16→16:43)
[2017-02-07] MEDS: Aspirin 81 MG TAB.CHEW PO SCH (09:06)
[2017-02-07] MEDS: Chlorhexidine Rinse 15 ML MOUTHWASH MM SCH ×2 (09:06→20:23)
[2017-02-07] MEDS: Lisinopril 20 MG TABLET PO SCH (09:06)
[2017-02-07] MEDS: Furosemide 20 MG/2 ML VIAL IVP SCH ×2 (09:06→20:22)
--- NOTE | 2017-02-07 09:07 | Cardiothoracic Progress Note ---
Date of Encounter: 02/07/17 Time of Encounter: 09:05 - Assessment and plan (1) Congestive heart failure Current Visit: Yes Status: Acute The patient is doing well. He is now requesting to be discharged to an extended care facility for approximately 2 weeks upon discharge for further rehabilitation. Qualifiers: Congestive heart failure type: systolic Congestive heart failure chronicity : acute on chronic Qualified Code(s): I50.23 - Acute on chronic systolic ( congestive) heart failure - Subjective Interval history: The patient has no complaints. He states that his shortness of breath is improved. Vital Signs, Last 4 Hours Temp 02/07/17 07:13 98.6 F Oxgyen Flow Rate Oxygen Flow Rate (LPM) 3 Clinical Data, last 8 Hours Output, Urine Amount 700 Weight 02/05/17 02/06/17 02/07/17 23:59 23:59 23:59 Weight 113.3 kg 108.5 kg 107.6 kg Lungs are clear to percussion and auscultation. Heart is in a normal sinus rhythm. All incisions are healing well without signs of infection and the sternum is stable. - Labs 02/07/17 01:08 02/07/17 01:08 Lab Results, Last 24 hours 02/07/17 02/07/17 01:08 01:08 WBC 12.7 H Hgb 8.2 L Hct 24.8 L Plt Count 306 Sodium 136 Potassium 4.7 H Chloride 102 Carbon Dioxide 28 BUN 24 Creatinine 0.92 Glucose 99 Calcium 8.6 - VTE Documentation of Mechanical Device: Graduated compression elastic hosiery Consult Discharge Plan - Plan Referrals: Mae Ken CNP [Advanced Practice Nurse] - (located in [facility] #[phone] please give a days notice if you need to cancel appt Please expect a new pt packet in the mail to complete) Jarod Malhotra CNP [Advanced Practice Nurse] - 02/27/17 8:00 am Lopez Ascencio MD [Partnered Physician] - 02/28/17 1:15 pm
--- NOTE | 2017-02-07 09:11 | Pulmonology Progress Note ---
<Asad Puga - Last Filed: 02/07/17 09:13> Date of Encounter: 02/07/17 Time of Encounter: 09:08 Assessment and Plan (1) Shortness of breath Current Visit: Yes Status: Resolved 61 y/o male hx of HTN, former smoker s/p CABG on 01/31 with post op complication of mediastinal hematoma evacuated this morning. S/p evacuation of mediastinal hematoma patient had SOB. LHC showed EF of 25% hx of smoking CXR s/p evaucation of mediastinal hematoma shows diffuse pulmonary edema and worsening of right plueral effusion and small left pneumothorax. Patient has three chest tubes: one in each lung and one in mediastinum. ABG shows pH 7.38 and PCO2 of 43 with PO2 of 57 on 3L O2 with SPO2 of 99%. With systolic HF and fluid administration, patient has become fluid overloaded. Patient diuresing with lasix Pedal edema 1+ improved. I/O last 24 hours is -1700 BP stable (2) Pulmonary edema Current Visit: Yes Status: Acute as stated above. improving Continue diuresing. Qualifiers: Chronicity: acute Qualified Code(s): J81.0 - Acute pulmonary edema (3) DVT prophylaxis Current Visit: Yes Status: Acute Heparin SQ Continue EPCDS. Subjective Principal diagnosis: CMP, CAD Interval history: NO acute events overnight. Denies CP, sob, abdominal pain. Tolerating diet. Good urine output and had BM. Objective PUL Vital signs: Last Vital Signs Temp 98.6 F 02/07/17 07:13 Pulse 91 02/07/17 05:00 Resp 18 02/07/17 05:00 BP 118/81 02/07/17 05:00 Pulse Ox 91 02/07/17 05:00 General appearance: no acute distress Eyes: nonicteric ENT: oropharynx moist Neck: supple Effort: normal Auscultation: bilateral: diminished breath sounds Percussion: bilateral: not dull Tactile fremitus: bilateral: normal Cardiovascular: regular rate and rhythm, other (midline incision intact. ) Gastrointestinal: normoactive bowel sounds, non-distended Integumentary: normal Extremities: no cyanosis, no clubbing, edema (1+ improved from yesterday. ) Musculoskeletal: no deformities, ROM normal normal mental status, non-focal exam mood appropriate, affect normal Results - Laboratory Findings CBC and BMP: 04/06/17 01:08 02/07/17 01:08 ABG ABG pH 7.38 pH Units (7.32-7.45) 02/04/17 15:43 ABG pCO2 43 mmHg (35-45) 02/04/17 15:43 ABG pO2 57 mmHg (85-104) L 02/04/17 15:43 ABG O2 Saturation 89 % (95-98) L 02/04/17 15:43 PT/INR, D-dimer PT 12.4 Seconds (9.4-12.1) H 02/01/17 04:19 D-Dimer 1162 ng/mLFEU (0-500) H 01/26/17 09:14 Abnormal lab findings: Abnormal lab results WBC 12.7 K/mcL (4.3-11.1) H 02/07/17 01:08 RBC 2.72 M/mcL (4.19-5.50) L 02/07/17 01:08 Hgb 8.2 g/dL (12.9-16.9) L 02/07/17 01:08 Hct 24.8 % (37.5-50.1) L 02/07/17 01:08 RDW 15.3 % (11.5-14.5) H 02/07/17 01:08 Monocytes # 1.8 K/mcL (0.0-1.3) H 02/07/17 01:08 Eosinophils # 0.9 K/mcL (0.0-0.6) H 02/07/17 01:08 Nucleated RBCs/100 WBC 0.2 /100 WBC (0) H 02/07/17 01:08 PT 12.4 Seconds (9.4-12.1) H 02/01/17 04:19 D-Dimer 1162 ng/mLFEU (0-500) H 01/26/17 09:14 ABG pO2 57 mmHg (85-104) L 02/04/17 15:43 ABG Total CO2 26.7 mEq/L (20-26) H 02/04/17 15:43 ABG O2 Saturation 89 % (95-98) L 02/04/17 15:43 ABG Hematocrit 24 % (35-51) L 01/31/17 11:08 VBG pO2 47 mmHg (25-40) H 02/03/17 01:20 VBG HCO3 28.2 mEq/L (21-27) H 02/03/17 01:20 Potassium 2.8 mEq/L (3.5-5.3) L 01/31/17 11:08 Glucose 42 mg/dL (60-95) L 01/31/17 11:08 Ionized Calcium 0.81 mmol/L (1.15-1.35) L 01/31/17 11:08 Potassium 4.7 mEq/L (3.5-4.5) H 02/07/17 01:08 POC Glucose 117 (58-89) H 02/05/17 07:22 B-Natriuretic Peptide 155 pg/mL (0-100) H 02/03/17 01:20 Albumin 3.4 g/dL (3.5-5.0) L 01/31/17 05:28 Albumin/Globulin Ratio 1.0 (1.1-2.2) L 01/31/17 05:28 Ur Leukocyte Esterase Trace (Negative) H 01/31/17 05:20 Urine Microscopic WBC 5-15 per hpf (0-3) H 01/31/17 05:20 Ur Squamous Epith Cells Many per lpf (None-Few) H 01/31/17 05:20 Ur Culture Indicated? YES (NO) A 01/31/17 05:20 - Clinical Findings Intake & Output: Intake & Output 02/06/17 02/07/17 02/07/17 23:59 07:59 15:59 Intake Total 780 / 780 100 / 100 240 / 240 Output Total 2024 700 / 700 Balance -1245 / -1245 -600 / -600 240 / 240 Weight 108.5 kg 107.6 kg - VTE Documentation of Mechanical Device: Graduated compression elastic hosiery Consult Discharge Plan - Plan Referrals: Mae Ken CNP [Advanced Practice Nurse] - (located in [facility] #[phone] please give a days notice if you need to cancel appt Please expect a new pt packet in the mail to complete) Jarod Malhotra CNP [Advanced Practice Nurse] - 02/27/17 8:00 am Lopez Ascencio MD [Partnered Physician] - 02/28/17 1:15 pm <Moody Ochoa - Last Filed: 02/07/17 15:11> Date of Encounter: 02/07/17 Objective PUL Vital signs: Last Vital Signs Temp 98.0 F 02/07/17 11:48 Pulse 91 02/07/17 12:00 Resp 16 02/07/17 12:00 BP 116/68 02/07/17 12:00 Pulse Ox 96 02/07/17 12:00 Results - Laboratory Findings CBC and BMP: 02/07/17 01:08 02/07/17 01:08 ABG ABG pH 7.38 pH Units (7.32-7.45) 02/04/17 15:43 ABG pCO2 43 mmHg (35-45) 02/04/17 15:43 ABG pO2 57 mmHg (85-104) L 02/04/17 15:43 ABG O2 Saturation 89 % (95-98) L 02/04/17 15:43 PT/INR, D-dimer PT 12.4 Seconds (9.4-12.1) H 02/01/17 04:19 D-Dimer 1162 ng/mLFEU (0-500) H 01/26/17 09:14 Abnormal lab findings: Abnormal lab results WBC 12.7 K/mcL (4.3-11.1) H 02/07/17 01:08 RBC 2.72 M/mcL (4.19-5.50) L 02/07/17 01:08 Hgb 8.2 g/dL (12.9-16.9) L 02/07/17 01:08 Hct 24.8 % (37.5-50.1) L 02/07/17 01:08 RDW 15.3 % (11.5-14.5) H 02/07/17 01:08 Monocytes # 1.8 K/mcL (0.0-1.3) H 02/07/17 01:08 Eosinophils # 0.9 K/mcL (0.0-0.6) H 02/07/17 01:08 Nucleated RBCs/100 WBC 0.2 /100 WBC (0) H 02/07/17 01:08 PT 12.4 Seconds (9.4-12.1) H 02/01/17 04:19 D-Dimer 1162 ng/mLFEU (0-500) H 01/26/17 09:14 ABG pO2 57 mmHg (85-104) L 02/04/17 15:43 ABG Total CO2 26.7 mEq/L (20-26) H 02/04/17 15:43 ABG O2 Saturation 89 % (95-98) L 02/04/17 15:43 ABG Hematocrit 24 % (35-51) L 01/31/17 11:08 VBG pO2 47 mmHg (25-40) H 02/03/17 01:20 VBG HCO3 28.2 mEq/L (21-27) H 02/03/17 01:20 Potassium 2.8 mEq/L (3.5-5.3) L 01/31/17 11:08 Glucose 42 mg/dL (60-95) L 01/31/17 11:08 Ionized Calcium 0.81 mmol/L (1.15-1.35) L 01/31/17 11:08 Potassium 4.7 mEq/L (3.5-4.5) H 02/07/17 01:08 POC Glucose 117 (58-89) H 02/05/17 07:22 B-Natriuretic Peptide 155 pg/mL (0-100) H 02/03/17 01:20 Albumin 3.4 g/dL (3.5-5.0) L 01/31/17 05:28 Albumin/Globulin Ratio 1.0 (1.1-2.2) L 01/31/17 05:28 Ur Leukocyte Esterase Trace (Negative) H 01/31/17 05:20 Urine Microscopic WBC 5-15 per hpf (0-3) H 01/31/17 05:20 Ur Squamous Epith Cells Many per lpf (None-Few) H 01/31/17 05:20 Ur Culture Indicated? YES (NO) A 01/31/17 05:20 - Clinical Findings Intake & Output: Intake & Output 02/06/17 02/07/17 02/07/17 23:59 07:59 15:59 Intake Total 780 / 780 100 / 100 240 / 240 Output Total 2024 / 2024 700 / 700 1375 / 1375 Balance -1245 / -1245 -600 / -600 -1135 / -1135 Weight 108.5 kg 107.6 kg - Attending Attestation I examined this patient and my medical decision-making was reviewed with the PAID SEARCH MARKETING STRATEGIST/PA/Advanced Practice Nurse/Resident Physician. I agree with the documented findings, disposition and treatment plan as described except to the extent set forth below. Patient seen and examined. Labs, radiology, chart personally reviewed. Agree with resident's history and physical, assessment, plan with following comments: CUSTOMER RETENTION SPECIALIST: Patient follows commands, Pulmonary: Acceptable oxygenation and ventilation. Patient is feeling better continue incentive spirometry and call for any questions or follow-up when necessary. Acute for the consultation. Cardiovascular: stable, diuresis as needed. GI: Nutrition per dietary and GI prophylaxis per routine Heme: DVT prophylaxis per routine I
[2017-02-08 00:18] LABS: Basophils # 0.1 K/mcL (0.0-0.2); Basophils % 0.4 %; Eosinophils # 0.7 K/mcL (0.0-0.6); Eosinophils % 5.4 %; Hematocrit 26.3 % (37.5-50.1); Hemoglobin 8.6 g/dL (12.9-16.9); Immature Granulocytes % 2.4 % (0-4); Lymphocytes # 1.3 K/mcL (0.6-4.6); Lymphocytes % 10.5 %; Mean Corpuscular HGB Conc 32.7 g/dL (31.6-35.5); Mean Corpuscular Hemoglobin 30.2 pg (28.0-33.3); Mean Corpuscular Volume 92.3 fL (83.0-100.0); Mean Platelet Volume 9.7 fL (9.4-12.4); Monocytes % 7.9 %; Neutrophils # 9.1 K/mcL (1.6-8.9); Nucleated Red Blood Cells 0.2 /100 WBC (0); Platelet Count 351 K/mcL (140-400); Red Blood Count 2.85 M/mcL (4.19-5.50); Red Cell Distribution Width 14.7 % (11.5-14.5); Segmented Neutrophils % 73.4 %
[2017-02-08] MEDS: Albuterol 2.5 MG/3 ML NEBULIZER IH SCH ×7 (00:26→23:15)
[2017-02-08 00:28] LABS: BUN/Creatinine Ratio 22 (6-26); Blood Urea Nitrogen 25 mg/dL (8-26); Calcium 8.8 mg/dL (8.6-10.8); Carbon Dioxide 27 mEq/L (19-29); Chloride 100 mEq/L (98-109); Glucose 137 mg/dL (70-99); Osmolality,Calculated 285 (280-300); Potassium 4.5 mEq/L (3.5-4.5); Sodium 134 mEq/L (136-145); eGFR For African Americans > 60 (> 60); eGFR For Non-African Americans > 60 (> 60)
[2017-02-08] MEDS: *HR* Heparin 5,000 UNIT/ML VIAL SQ SCH ×2 (06:00→17:03)
--- NOTE | 2017-02-08 08:59 | Cardiothoracic Progress Note ---
Date of Encounter: 02/08/17 Time of Encounter: 08:59 - Assessment and plan (1) CAD (coronary artery disease) Current Visit: Yes Status: Acute The patient is recovering well from his mediastinal exploration and evacuation of hematoma. He is breathing comfortably. He was transferred to the stepdown unit when a bed is available. The assessment and plan as outlined above was discussed with the patient and/or family members who expressed understanding and agreement. All questions were answered. Qualifiers: Coronary Disease-Associated Artery/Lesion type: [place] artery [place] vs. transplanted heart: [place] heart Associated angina: without angina Qualified Code(s): I25.10 - Atherosclerotic heart disease of [place] coronary artery without angina pectoris - Subjective Procedure(s) Performed: POD#8 S/P CABG2 POD#4 S/P Mediastinal exploration with evacuation of hematoma Interval history: The patient is sitting comfortably in a chair at the bedside. His breathing is less labored this morning and he is more comfortable. Vital Signs, Last 4 Hours Temp Pulse Resp BP Pulse Ox 02/08/17 08:29 21 126/79 93 02/08/17 07:25 98.5 F 02/08/17 07:00 99 21 126/79 93 Oxgyen Flow Rate Oxygen Flow Rate (LPM) 2 Clinical Data, last 8 Hours Output, Urine Amount 500 Output, Urine Amount 500 Weight 02/06/17 02/07/17 02/08/17 23:59 23:59 23:59 Weight 108.5 kg 107.6 kg - Physical Examination General: Conversant, No Apparent Distress Neck: No JVD, Normal carotid pulses Cardiac: Reg Rate and Rhythm, Normal S1 and S2, No Murmur Incision: No signs of infection, Dry/intact dressing Pacing Wires: In place Lungs: Normal Breath Sounds, No Wheeze, Rales, Rhonchi Neuro: Alert and responsive, No focal deficits noted Vascular: Normal capillary refill Musculoskeletal: No Chest Wall Tenderness Extremities: No Clubbing, No Cyanosis, No Edema - Labs 02/08/17 00:09 02/08/17 00:09 Lab Results, Last 24 hours 02/08/17 02/08/17 00:09 00:09 WBC 12.3 H Hgb 8.6 L Hct 26.3 L Plt Count 351 Sodium 134 L Potassium 4.5 Chloride 100 Carbon Dioxide 27 BUN 25 Creatinine 1.16 Glucose 137 H Calcium 8.8 - Imaging Chest Xray: image reviewed (No pneumothorax. Minimal bilateral atelectasis.) - VTE Documentation of Mechanical Device: Graduated compression elastic hosiery Consult Discharge Plan - Plan Referrals: Mae Ken CNP [Advanced Practice Nurse] - (located in [facility] #[phone] please give a days notice if you need to cancel appt Please expect a new pt packet in the mail to complete) Jarod Malhotra CNP [Advanced Practice Nurse] - 02/27/17 8:00 am Lopez Ascencio MD [Partnered Physician] - 02/28/17 1:15 pm
[2017-02-08] MEDS: Chlorhexidine Rinse 15 ML MOUTHWASH MM SCH ×2 (09:01→20:32)
[2017-02-08] MEDS: Aspirin 81 MG TAB.CHEW PO SCH (09:01)
[2017-02-08] MEDS: Lisinopril 20 MG TABLET PO SCH (09:01)
[2017-02-08] MEDS: Furosemide 20 MG/2 ML VIAL IVP SCH ×2 (09:02→20:33)
[2017-02-08] MEDS: *HR* OxyCODONE/APAP 5/325 TABLET PO PRN ×2 (14:30→20:32)
[2017-02-09] MEDS: Albuterol 2.5 MG/3 ML NEBULIZER IH SCH ×6 (03:45→23:53)
[2017-02-09] MEDS: *HR* Heparin 5,000 UNIT/ML VIAL SQ SCH ×3 (06:16→21:28)
[2017-02-09] MEDS: Aspirin 81 MG TAB.CHEW PO SCH (07:48)
[2017-02-09] MEDS: Lisinopril 20 MG TABLET PO SCH (07:49)
[2017-02-09] MEDS: *HR* OxyCODONE/APAP 5/325 TABLET PO PRN ×2 (07:49→15:02)
[2017-02-09] MEDS: Chlorhexidine Rinse 15 ML MOUTHWASH MM SCH ×2 (07:50→21:28)
[2017-02-09] MEDS: Furosemide 20 MG/2 ML VIAL IVP SCH ×2 (07:50→21:28)
--- NOTE | 2017-02-09 09:58 | Cardiothoracic Progress Note ---
Date of Encounter: 02/09/17 Time of Encounter: 09:57 - Assessment and plan (1) CAD (coronary artery disease) Current Visit: Yes Status: Acute The patient is recovering well from his mediastinal exploration and evacuation of hematoma. He is breathing comfortably. I will order a venous duplex of both lower extremities to rule out DVT. The nurses and age will assist the patient with walking today. The assessment and plan as outlined above was discussed with the patient and/or family members who expressed understanding and agreement. All questions were answered. Qualifiers: Coronary Disease-Associated Artery/Lesion type: [place] artery [place] vs. transplanted heart: [place] heart Associated angina: without angina Qualified Code(s): I25.10 - Atherosclerotic heart disease of [place] coronary artery without angina pectoris - Subjective Procedure(s) Performed: POD#9 S/P CABG2 Interval history: The patient is sitting comfortably in a chair at the bedside. He is breathing comfortably. Complaints of some left calf tenderness, particular with walking. Vital Signs, Last 4 Hours Temp Pulse Resp BP Pulse Ox 02/09/17 07:42 98.8 F 101 18 113/84 93 Oxgyen Flow Rate Oxygen Flow Rate (LPM) 2 Clinical Data, last 8 Hours Output, Urine Amount 350 Output, Urine Amount 775 Weight 02/07/17 02/08/17 02/09/17 23:59 23:59 23:59 Weight 107.6 kg 104.2 kg - Physical Examination General: Conversant, No Apparent Distress Neck: No JVD, Normal carotid pulses Cardiac: Reg Rate and Rhythm, Normal S1 and S2, No Murmur Incision: No signs of infection, Dry/intact dressing Sternum: Stable Pacing Wires: In place Lungs: Normal Breath Sounds, No Wheeze, Rales, Rhonchi Neuro: Alert and responsive, No focal deficits noted Vascular: Normal capillary refill Musculoskeletal: No Chest Wall Tenderness Extremities: No Clubbing, No Cyanosis, No Edema - Labs 02/08/17 00:09 02/08/17 00:09 - VTE Documentation of Mechanical Device: Intermittent pneumatic compression device Consult Discharge Plan - Plan Referrals: Mae Ken STRATEGIC SOLUTIONS CONSULTANT [Advanced Practice Nurse] - 02/14/17 10:30 am (located in [facility] #[phone] please give a days notice if you need to cancel appt Please expect a new pt packet in the mail to complete) Marya,Jarod R, STRATEGIC SOLUTIONS CONSULTANT [Advanced Practice Nurse] - 02/27/17 8:00 am Lopez Ascencio MD [Partnered Physician] - 02/28/17 1:15 pm
--- NOTE | 2017-02-09 10:13 | Internal Med Progress Note ---
Date of Encounter: 02/09/17 Time of Encounter: 10:09 - Assessment and plan (1) CAD (coronary artery disease) Current Visit: Yes Status: Acute Assessment and plan: s/p CABG-POD 9 s/p evacuation of mediastinal hematoma-POD 5 Clinical improving, in no respiratory distress Cardiothoracic surgery on board and consultation appreciated PT eval continue current management Qualifiers: Coronary Disease-Associated Artery/Lesion type: [place] artery [place] vs. transplanted heart: [place] heart Associated angina: without angina Qualified Code(s): I25.10 - Atherosclerotic heart disease of [place] coronary artery without angina pectoris (2) Hypertension Current Visit: Yes Status: Acute Assessment and plan: BP within acceptable range continue current management Qualifiers: Hypertension type: essential hypertension Qualified Code(s): I10 - Essential (primary) hypertension (3) Lower extremity edema Current Visit: Yes Status: Acute Assessment and plan: Will obtain LE venous doppler to rule out DVT Qualifiers: Laterality: left Qualified Code(s): R60.0 - Localized edema (4) Pulmonary edema Current Visit: Yes Status: Resolved Assessment and plan: Resolved currently in no respiratory distress continue Diuresis continue to monitor Qualifiers: Chronicity: acute Qualified Code(s): J81.0 - Acute pulmonary edema (5) DVT prophylaxis Current Visit: Yes Status: Acute Assessment and plan: Heparin SQ - Subjective Interval history: Patient is a 62y/o male with PMH of hypertension who is s/p CABG on 01/31 with post op complication of mediastinal hematoma. S/P evacuation of mediastinal hematoma-POD 5. Patient was transferred from the ICU on 02/08/17. Patient seen and examined, resting in chair. Reports of feeling better but complains of worsening left lower leg swelling and pain. Reports of pain being worsened with movement. - Constitutional Vitals: Temp Pulse Resp BP Pulse Ox 98.8 F 101 18 113/84 93 02/09/17 07:42 02/09/17 07:42 02/09/17 07:42 02/09/17 07:42 02/09/17 07:42 General appearance: Present: cooperative, A&O X 3, pleasant, no acute distress, obese, answers questions appropriately - Head Head exam: Present: atraumatic, normocephalic - Eye Eye exam: Present: normal appearance, conjuntiva pink, sclera anicteric - Respiratory Respiratory exam: Present: CTAB. Absent: accessory muscle use, rales, rhonchi, wheezes - Cardiovascular Cardiovascular exam: Present: RRR, +S1, +S2. Absent: diastolic murmur, gallop, rubs, systolic murmur Additional comments: midline substernal dressing intact - GI/Abdominal GI/Abdominal exam: Present: normal bowel sounds, soft, no peritoneal signs. Absent: distended, tenderness - Extremities Exam Extremities exam: Present: tenderness (LLE calf tenderness and edema ), warm, radial pulses palpable and symetrical - Neurological Exam Neurological exam: Present: alert, oriented X3 - Psychiatric Psychiatric exam: Present: normal affect, normal mood Internal Medicine: Result - Labs CBC & Chem 7: 02/08/17 00:09 02/08/17 00:09 - ABG Interpretation ABG results: ABG ABG pH 7.38 pH Units (7.32-7.45) 02/04/17 15:43 ABG pCO2 43 mmHg (35-45) 02/04/17 15:43 ABG pO2 57 mmHg (85-104) L 02/04/17 15:43 ABG O2 Saturation 89 % (95-98) L 02/04/17 15:43 PT/INR, D-dimer PT 12.4 Seconds (9.4-12.1) H 02/01/17 04:19 D-Dimer 1162 ng/mLFEU (0-500) H 01/26/17 09:14 - VTE Documentation of Mechanical Device: Intermittent pneumatic compression device Consult Discharge Plan - Plan Referrals: Mae Ken CNP [Advanced Practice Nurse] - 02/14/17 10:30 am (located in [facility] #[phone] please give a days notice if you need to cancel appt Please expect a new pt packet in the mail to complete) Jarod Malhotra CNP [Advanced Practice Nurse] - 02/27/17 8:00 am Lopez Ascencio MD [Partnered Physician] - 02/28/17 1:15 pm
[2017-02-09 13:14] LABS: Basophils % 0.7 %; Eosinophils % 5.9 %; Hemoglobin 9.6 g/dL (12.9-16.9); Immature Granulocytes % 3.9 % (0-4); Immature Platelets 3.3 % (1.1-6.1); Lymphocytes % 12.4 %; Mean Corpuscular Hemoglobin 28.8 pg (28.0-33.3); Mean Corpuscular Volume 93.1 fL (83.0-100.0); Mean Platelet Volume 9.7 fL (9.4-12.4); Monocytes % 8.1 %; Platelet Count 539 K/mcL (140-400); Red Blood Count 3.33 M/mcL (4.19-5.50); Red Cell Distribution Width 14.4 % (11.5-14.5)
[2017-02-09 13:15] LABS: Basophils # 0.1 K/mcL (0.0-0.2); Eosinophils # 0.7 K/mcL (0.0-0.6); Lymphocytes # 1.5 K/mcL (0.6-4.6); Neutrophils # 8.2 K/mcL (1.6-8.9)
[2017-02-09 13:27] LABS: BUN/Creatinine Ratio 19 (6-26); Blood Urea Nitrogen 25 mg/dL (8-26); Calcium 9.3 mg/dL (8.6-10.8); Carbon Dioxide 25 mEq/L (19-29); Chloride 100 mEq/L (98-109); Glucose 109 mg/dL (70-99); Osmolality,Calculated 289 (280-300); Phosphorous 4.6 mg/dL (2.3-4.7); Potassium 4.5 mEq/L (3.5-4.5); Sodium 137 mEq/L (136-145); eGFR For African Americans > 60 (> 60); eGFR For Non-African Americans 55 (> 60)
--- NOTE | 2017-02-09 16:30 | Venous Imaging Report ---
LE Venous Duplex Patient Name:Edgar Champion Order Number:[id number] Procedure Date:02/09/2017 Date:1955ge:62 yrs Gender:Male Location:[facility] Room #: 2N2 Aircraft Engine Dismantler:Marta Veags RDCS Referring MD:Alcides Valle MD delphi programmer:None Reading MD:Gerber Monreal MD , FACS Primary Indications:Left leg pain Secondary Indications: Risk Factors Yes/No Hx of DVT No Anticoagulants Yes Previous Vascular Surgery Yes Impressions: Bilateral lower extremity: normal deep exam. Lower extremity abnormal superficial exam: left great saphenousvein demonstrates acute thrombosis. Recommendations: Test completed on 02/09/2017 at 4:30:00 pm. Critical findings reported to Jessica AVERY in person at 4:30:00 pm on 02/09/2017 by Marta Vegas RDCS. Findings Prior Intervention: The patient has undergone the following procedure: harvest of the saphenous on the left. Venous Duplex Results: Right: Venous imaging of the lower extremity reveals full patency and normal vessel compressibility of the right distal iliac, right common femoral, right superficial femoral, right popliteal, right posterior tibial, right peroneal, right great saphenous and right lesser saphenous. Doppler signals in the evaluated veins were normal. Left: Venous imaging of the lower extremity reveals full patency and normal vessel compressibility of the left distal iliac, left common femoral, left superficial femoral, left popliteal, left posterior tibial, left peroneal and left lesser saphenous. Doppler signals in the evaluated veins were normal. There is an acute thrombus seen in the left great saphenous. It demonstrates an incompressible vein. Flow was absent and it did not augment. Prior Study: No prior study available for comparison. Lower Extremity Venous Duplex Side Vein Compress Spontaneous Flow Augment Diameter (cm) Depth (cm) Right Distal Iliac Normal Yes Phasic Yes Right Common Femoral Normal Yes Phasic Yes Right Superficial Femoral Normal Yes Phasic Yes Right Popliteal Normal Yes Phasic Yes Right Posterior Tibial Normal Yes Phasic Yes Right Peroneal Normal Yes Phasic Yes Right Great Saphenous Normal Yes Phasic Yes Right Lesser Saphenous Normal Yes Phasic Yes Left Distal Iliac Normal Yes Phasic Yes Left Common Femoral Normal Yes Phasic Yes Left Superficial Femoral Normal Yes Phasic Yes Left Popliteal Normal Yes Phasic Yes Left Posterior Tibial Normal Yes Phasic Yes Left Peroneal Normal Yes Phasic Yes Left Great Saphenous None no Absent no Left Lesser Saphenous Normal Yes Phasic Yes Updated by Gerber Monreal MD, FACS on 02/09/2017 4:23:27 PM Gerber Monreal MD electronically signed on 02/09/2017 4:24:03 PM with status of Final
[2017-02-10] MEDS: Albuterol 2.5 MG/3 ML NEBULIZER IH SCH ×4 (03:40→16:12)
[2017-02-10 04:59] LABS: Basophils # 0.1 K/mcL (0.0-0.2); Basophils % 0.5 %; Eosinophils # 0.8 K/mcL (0.0-0.6); Eosinophils % 6.3 %; Hematocrit 28.6 % (37.5-50.1); Immature Granulocytes % 2.6 % (0-4); Lymphocytes # 1.7 K/mcL (0.6-4.6); Lymphocytes % 12.5 %; Mean Corpuscular HGB Conc 31.5 g/dL (31.6-35.5); Mean Corpuscular Volume 92.3 fL (83.0-100.0); Mean Platelet Volume 9.4 fL (9.4-12.4); Monocytes # 1.2 K/mcL (0.0-1.3); Monocytes % 8.9 %; Neutrophils # 9.1 K/mcL (1.6-8.9); Platelet Count 494 K/mcL (140-400); Red Cell Distribution Width 14.4 % (11.5-14.5); Segmented Neutrophils % 69.2 %
[2017-02-10 05:11] LABS: BUN/Creatinine Ratio 21 (6-26); Blood Urea Nitrogen 27 mg/dL (8-26); Calcium 8.9 mg/dL (8.6-10.8); Carbon Dioxide 25 mEq/L (19-29); Chloride 100 mEq/L (98-109); Glucose 150 mg/dL (70-99); Osmolality,Calculated 286 (280-300); Phosphorous 3.1 mg/dL (2.3-4.7); Potassium 4.2 mEq/L (3.5-4.5); Sodium 134 mEq/L (136-145); eGFR For African Americans > 60 (> 60); eGFR For Non-African Americans 58 (> 60)
[2017-02-10] MEDS: *HR* Heparin 5,000 UNIT/ML VIAL SQ SCH ×3 (06:20→22:38)
--- NOTE | 2017-02-10 08:04 | Cardiothoracic Progress Note ---
Date of Encounter: 02/10/17 Time of Encounter: 08:04 - Assessment and plan (1) CAD (coronary artery disease) Current Visit: Yes Status: Acute The patient is recovering well from his mediastinal exploration and evacuation of hematoma. He is breathing comfortably. The patient is ambulating well. The lower extremity venous duplex showed no DVT. The patient is considering discharged to home rather than rehabilitation. He will speak with his mother today and make a decision regarding his disposition tomorrow. The assessment and plan as outlined above was discussed with the patient and/or family members who expressed understanding and agreement. All questions were answered. Qualifiers: Coronary Disease-Associated Artery/Lesion type: [place] artery [place] vs. transplanted heart: [place] heart Associated angina: without angina Qualified Code(s): I25.10 - Atherosclerotic heart disease of [place] coronary artery without angina pectoris - Subjective Procedure(s) Performed: POD#9 S/P CABG2 POD#6 S/P Mediastinal exploration with evacuation of hematoma Interval history: The patient is sitting comfortably in a chair at the bedside. He is breathing comfortably. Oxgyen Flow Rate Oxygen Flow Rate (LPM) 2 Clinical Data, last 8 Hours Output, Urine Amount 400 Weight 02/08/17 02/09/17 02/10/17 23:59 23:59 23:59 Weight 104.2 kg 104.3 kg - Physical Examination General: Conversant, No Apparent Distress Neck: No JVD, Normal carotid pulses Cardiac: Reg Rate and Rhythm, Normal S1 and S2, No Murmur Incision: No signs of infection, Dry/intact dressing Sternum: Stable Pacing Wires: In place Lungs: Normal Breath Sounds, No Wheeze, Rales, Rhonchi Neuro: Alert and responsive, No focal deficits noted Vascular: Normal capillary refill Musculoskeletal: No Chest Wall Tenderness Extremities: No Clubbing, No Cyanosis, No Edema - Labs 02/10/17 04:45 02/10/17 04:45 Lab Results, Last 24 hours 02/09/17 02/09/17 02/10/17 12:50 12:50 04:45 WBC 11.9 H 13.2 H Hgb 9.6 L 9.0 L Hct 31.0 L 28.6 L Plt Count 539 H D 494 H Sodium 137 Potassium 4.5 Chloride 100 Carbon Dioxide 25 BUN 25 Creatinine 1.33 H Glucose 109 H Calcium 9.3 Magnesium 2.0 02/10/17 04:45 WBC Hgb Hct Plt Count Sodium 134 L Potassium 4.2 Chloride 100 Carbon Dioxide 25 BUN 27 H Creatinine 1.27 H Glucose 150 H Calcium 8.9 Magnesium 2.0 - VTE Documentation of Mechanical Device: Intermittent pneumatic compression device Consult Discharge Plan - Plan Referrals: Mae Ken CNP [Advanced Practice Nurse] - 02/14/17 10:30 am (located in [facility] #[phone] please give a days notice if you need to cancel appt Please expect a new pt packet in the mail to complete) Jarod Malhotra CNP [Advanced Practice Nurse] - 02/27/17 8:00 am Lopez Ascencio MD [Partnered Physician] - 02/28/17 1:15 pm
[2017-02-10] MEDS: Lisinopril 20 MG TABLET PO SCH (08:05)
[2017-02-10] MEDS: Chlorhexidine Rinse 15 ML MOUTHWASH MM SCH ×2 (08:05→22:37)
[2017-02-10] MEDS: Furosemide 20 MG/2 ML VIAL IVP SCH ×2 (08:06→22:43)
[2017-02-10] MEDS: Aspirin 81 MG TAB.CHEW PO SCH (08:06)
--- NOTE | 2017-02-10 08:11 | Discharge Summary ---
Date of Encounter: 02/11/17 Time of Encounter: 07:15 - Discharge Diagnosis (1) CAD (coronary artery disease) Priority: Primary Status: Acute Qualifiers: Coronary Disease-Associated Artery/Lesion type: [place] artery [place] vs. transplanted heart: [place] heart Associated angina: without angina Qualified Code(s): I25.10 - Atherosclerotic heart disease of [place] coronary artery without angina pectoris - Discharge Medications Prescriptions: OxyCODONE/APAP 5/325 [Percocet 5/325 MG] 1 each PO Q4HR PRN #50 tablet PRN Reason: Severe Pain Atorvastatin [Lipitor] 40 mg PO HS #30 tablet Lisinopril [Zestril] 10 mg PO DAILY #30 tablet Metoprolol [Lopressor] 50 mg PO BID #60 tablet Home Medications: Aspirin 81 mg PO DAILY tab.chew 02/11/17 [Rx] Atorvastatin [Lipitor] 40 mg PO HS #30 tablet 02/11/17 [Rx] Lisinopril [Zestril] 10 mg PO DAILY #30 tablet 02/11/17 [Rx] Metoprolol [Lopressor] 50 mg PO BID #60 tablet 02/11/17 [Rx] OxyCODONE/APAP 5/325 [Percocet 5/325 MG] 1 each PO Q4HR PRN #50 tablet 02/11/17 [Rx] Allergies/Adverse Reactions: Allergies No Known Allergies Allergy (Verified 01/26/17 08:55) Procedures/tests Complete & Pending: Procedures Performed prior 72 hours Category Date Time Status EV venous imaging LE BI Routine Y 02/09/17 09:59 Completed Date of admission: 01/26/17 17:43 Primary care physician: PCP NO Consults: 01/27/17 17:56 Consult to Cardiology [CONS] Routine Comment: Consulting Provider: Cardiology Duff Reason for Consult: CHF Call Completed: Yes 01/31/17 12:31 Consult to Cardiac Rehabilitation-Phase1 [CONS] Routine Comment: Reason for Consult: Post open heart Call Completed: Yes Consult to Male Model [CONS] Routine Reason for SW Consult: open heart 02/04/17 15:01 Consult to Pulmonology [CONS] Routine Consulting Provider: [facility]m [facility] Carla Reason for Consult: Post-op respiratory insufficiency Time Notified: 15:01 Call Completed: Yes 02/08/17 08:53 Consult to Occupational Therapy [CONS] Routine Comment: Evaluate, develop and implement POC Consult to Physical Therapy [CONS] Routine Comment: Evaluate, develop and implement POC Procedure(s) Performed: 1. Cardiac catheterization performed January 28, 2017. 2. CABG 2 (BARKER to LAD, SVG to OM1) performed January 31, 2017. 3. Endoscopic vein harvesting, greater saphenous vein from left lower extremity performed January 31, 2017. 4. Sternal exploration with evacuation of mediastinal hematoma performed February. Discharging clinician: Grace Valle Anticipated date of discharge: 02/11/17 - Patient Status Disposition: Transfer Inpatient Rehab Fac Condition: Good Functional capacity at discharge: independent ambulation Overall status at discharge: patient is progressing back to baseline - Discharge Instructions Follow Up With: Mae Ken CNP [Advanced Practice Nurse] - 02/14/17 10:30 am (located in [facility] #[phone] please give a days notice if you need to cancel appt Please expect a new pt packet in the mail to complete) Jarod Malhotra CNP [Advanced Practice Nurse] - 02/27/17 8:00 am Lopez Ascencio MD [Partnered Physician] - 02/28/17 1:15 pm - Diet and Activity Activity: sternal precautions, no driving for four weeks, no lifting greater than 10 pounds for eight weeks Diet: low fat, low cholesterol, low salt diet - Hospital Course Hospital course: Mr. Champion is a 62 year old hypertensive man who presented to [facility] with complaints of shortness of breath, dyspnea exertion, and orthopnea. Patient denies any substernal chest pain. During his evaluation at [facility] emergency department the patient was noted to have elevated BNP levels. The a shunt was admitted for further cardiac workup. A transthoracic echocardiogram revealed an LVEF 40%. A gated stress test revealed a diminished LVEF 28%. He underwent cardiac catheterization and was found to have severe three-vessel CAD. In particular the patient had a 70-80% proximal LAD lesion, a 95% proximal LCx lesion, and a completely occluded proximal RCA which had faint distal filling via [id number] and right to right collaterals. The patient was recommended for CABG. The patient underwent CABG 3 on January 31, 2017. Intraoperatively the BARKER was found to have an acute dissection which occurred during harvest. This was unusable and the patient underwent SVG grafts only. Postoperatively the patient had large amount of chest tube output; however, this eventually stopped after administration of blood products. He remained hemodynamically stable without evidence of tamponade. The patient was extubated and remained in the ICU on POD# 1. He was then transferred to the stepdown unit on POD#2. The chest tube was removed and the patient began ambulating in the hallways. He had complaints of shortness of breath and dyspnea on exertion on POD#3 and the following day. A chest CT was performed and this revealed a large anterior mediastinal hematoma. The patient was taken back to surgery for a sternal exploration and evacuation of the hematoma. The patient was evaluated in the ICU where he remained hemodynamic stable, but the chest x-ray revealed evidence of CHF. He was diuresed and his breathing improved. The patient was then transferred to the stepdown unit where he continued to recover without further difficulty. The patient was then discharged to an extended care facility on POD#11 as a bridge to home. - Time Spent with Patient Total time spent providing and/or coordinating discharge services: Physical Examination General: Conversant, No Apparent Distress HEENT: Atraumatic, Normocephaly, Trachea midline Neck: No JVD, Normal carotid pulses Cardiac: Reg Rate and Rhythm, Normal S1 and S2, No Murmur Lungs: Normal Breath Sounds, No Wheeze, Rales, Rhonchi Neuro: Alert and responsive, No focal deficits noted Vascular: Normal capillary refill Abdomen: Soft, Non-tender Musculoskeletal: No Chest Wall Tenderness Extremities: No Clubbing, No Cyanosis, No Edema Open Heart Registry Aspirin Cont/Prescribed at DC: Yes Beta Kenna Cont/Prescribed at DC: Yes Statin Cont/Prescribed at DC: Yes LAURI/ARB Cont/Prescribed at DC: Yes - VTE Documentation of Mechanical Device: Intermittent pneumatic compression device
--- NOTE | 2017-02-10 10:31 | Internal Med Progress Note ---
Date of Encounter: 02/10/17 Time of Encounter: 10:00 - Assessment and plan (1) CAD (coronary artery disease) Current Visit: Yes Status: Acute Assessment and plan: s/p CABG-POD 10 s/p evacuation of mediastinal hematoma-POD 6 Clinical improving, in no respiratory distress Cardiothoracic surgery on board and consultation appreciated PT eval continue current management Likely discharge in am pending patient's choice of discharge disposition Qualifiers: Coronary Disease-Associated Artery/Lesion type: [place] artery [place] vs. transplanted heart: [place] heart Associated angina: without angina Qualified Code(s): I25.10 - Atherosclerotic heart disease of [place] coronary artery without angina pectoris (2) Hypertension Current Visit: Yes Status: Acute Assessment and plan: BP within acceptable range continue current management Qualifiers: Hypertension type: essential hypertension Qualified Code(s): I10 - Essential (primary) hypertension (3) Lower extremity edema Current Visit: Yes Status: Acute Assessment and plan: Venous doppler noted for superficial thrombosis-left great saphenous vein thrombosis compression stockings and no further intervention at this time Qualifiers: Laterality: left Qualified Code(s): R60.0 - Localized edema (4) Pulmonary edema Current Visit: Yes Status: Resolved Assessment and plan: Resolved currently in no respiratory distress continue Diuresis continue to monitor Qualifiers: Chronicity: acute Qualified Code(s): J81.0 - Acute pulmonary edema (5) DVT prophylaxis Current Visit: Yes Status: Acute Assessment and plan: Heparin SQ - Subjective Interval history: Patient is a 62y/o male with PMH of hypertension who is s/p CABG on 01/31 with post op complication of mediastinal hematoma. S/P evacuation of mediastinal hematoma-POD 6. Patient was transferred from the ICU on 02/08/17. Patient seen and examined, resting in chair. Reports of feeling better. No overnight issues reported. - Constitutional Vitals: Temp Pulse Resp BP Pulse Ox 98 F 100 18 112/71 96 02/10/17 08:05 02/10/17 08:05 02/10/17 08:05 02/10/17 08:05 02/10/17 08:05 General appearance: Present: cooperative, A&O X 3, pleasant, no acute distress, obese, answers questions appropriately - Head Head exam: Present: atraumatic, normocephalic - Eye Eye exam: Present: normal appearance, conjuntiva pink, sclera anicteric - Respiratory Respiratory exam: Present: CTAB. Absent: accessory muscle use, rales, rhonchi, wheezes - Cardiovascular Cardiovascular exam: Present: RRR, +S1, +S2. Absent: diastolic murmur, gallop, rubs, systolic murmur - GI/Abdominal GI/Abdominal exam: Present: normal bowel sounds, soft, no peritoneal signs. Absent: distended, tenderness - Extremities Exam Extremities exam: Present: pedal edema, warm, radial pulses palpable and symetrical. Absent: calf tenderness, cyanotic - Neurological Exam Neurological exam: Present: alert, oriented X3 - Psychiatric Psychiatric exam: Present: normal affect, normal mood Internal Medicine: Result - Labs CBC & Chem 7: 02/10/17 04:45 02/10/17 04:45 Labs: Short CBC 02/09/17 02/10/17 Range/Units 12:50 04:45 WBC 11.9 H 13.2 H (4.3-11.1) K/mcL Hgb 9.6 L 9.0 L (12.9-16.9) g/dL Hct 31.0 L 28.6 L (37.5-50.1) % Plt Count 539 H D 494 H (140-400) K/mcL Neutrophils # 8.2 9.1 H (1.6-8.9) K/mcL BMP 02/09/17 02/10/17 12:50 04:45 Sodium 137 134 L Potassium 4.5 4.2 Chloride 100 100 Carbon Dioxide 25 25 BUN 25 27 H Creatinine 1.33 H 1.27 H Glucose 109 H 150 H Calcium 9.3 8.9 - ABG Interpretation ABG results: ABG ABG pH 7.38 pH Units (7.32-7.45) 02/04/17 15:43 ABG pCO2 43 mmHg (35-45) 02/04/17 15:43 ABG pO2 57 mmHg (85-104) L 02/04/17 15:43 ABG O2 Saturation 89 % (95-98) L 02/04/17 15:43 PT/INR, D-dimer PT 12.4 Seconds (9.4-12.1) H 02/01/17 04:19 D-Dimer 1162 ng/mLFEU (0-500) H 01/26/17 09:14 - VTE Documentation of Mechanical Device: Intermittent pneumatic compression device Consult Discharge Plan - Plan Referrals: Mae Ken CNP [Advanced Practice Nurse] - 02/14/17 10:30 am (located in [facility] #[phone] please give a days notice if you need to cancel appt Please expect a new pt packet in the mail to complete) Jarod Malhotra CNP [Advanced Practice Nurse] - 02/27/17 8:00 am Lopez Ascencio MD [Partnered Physician] - 02/28/17 1:15 pm
[2017-02-10] MEDS ORDERED: Albuterol 2.5 MG/3 ML NEBULIZER IH PRN (19:34)
[2017-02-11 04:04] LABS: BUN/Creatinine Ratio 22 (6-26); Blood Urea Nitrogen 29 mg/dL (8-26); Calcium 8.7 mg/dL (8.6-10.8); Carbon Dioxide 25 mEq/L (19-29); Chloride 101 mEq/L (98-109); Glucose 99 mg/dL (70-99); Osmolality,Calculated 286 (280-300); Sodium 135 mEq/L (136-145); eGFR For African Americans > 60 (> 60); eGFR For Non-African Americans 55 (> 60)
[2017-02-11 04:05] LABS: Potassium 5.3 mEq/L (3.5-4.5)
[2017-02-11] MEDS: *HR* Heparin 5,000 UNIT/ML VIAL SQ SCH ×3 (06:08→21:24)
--- NOTE | 2017-02-11 07:22 | Physician Discharge Referral ---
ExtendedCare Referral Info Provider in Charge: Lopez Ascencio M.D. Provider in Charge after Transfer: PCP Institutional Level of Care: Skilled - Diagnosis (1) CAD (coronary artery disease) Priority: Primary Status: Acute - Transfer Medications Prescriptions: OxyCODONE/APAP 5/325 [Percocet 5/325 MG] 1 each PO Q4HR PRN #50 tablet PRN Reason: Severe Pain Atorvastatin [Lipitor] 40 mg PO HS #30 tablet Lisinopril [Zestril] 10 mg PO DAILY #30 tablet Metoprolol [Lopressor] 50 mg PO BID #60 tablet Home Medications: Aspirin 81 mg PO DAILY tab.chew 02/11/17 [Rx] Atorvastatin [Lipitor] 40 mg PO HS #30 tablet 02/11/17 [Rx] Lisinopril [Zestril] 10 mg PO DAILY #30 tablet 02/11/17 [Rx] Metoprolol [Lopressor] 50 mg PO BID #60 tablet 02/11/17 [Rx] OxyCODONE/APAP 5/325 [Percocet 5/325 MG] 1 each PO Q4HR PRN #50 tablet 02/11/17 [Rx] Allergies/Adverse Reactions: Allergies No Known Allergies Allergy (Verified 01/26/17 08:55) - Respiratory Orders Smoking Cessation: Smoking cessation has been advised. For more information, call the [place] Tobacco Quit Line at 9-754-GUPCNOW. - Ancillary Orders May use pressure relief devices daily prn, May go on SILVERIO w/family/respon libertarian w /meds at nurse discretion PRN, May consult with Dentist, Regional Sales Executive, Mining Engineering Technologist PRN - Advance Directives Code Status: Full Code - Mobility Orders Ambulate - Rehabiliation Orders Rehab Potential: Good Rehab Orders: Sternal Precautions, ROM Exercises, Evaluation for Physical Therapy, Evaluation for Occupational Therapy - Treatments Skin tear care topically daily PRN per policy, May check for fecal impaction rectally daily PRN, Fleet enema rectally every other day PRN cleansing purposes - Diet Orders No Added Salt (LILIANA), Cardiac CERTIFICATION: I certify that the transfer of the above named patient to an Extended Care Facility is necessary for the continuing treatment of the diagnosis listed. The above information is true and accurate reflection of patient's current condition. Confidential - Redisclosure prohibited without a patient's written consent.
[2017-02-11] MEDS: Chlorhexidine Rinse 15 ML MOUTHWASH MM SCH ×2 (08:12→21:20)
[2017-02-11] MEDS: Lisinopril 20 MG TABLET PO SCH (08:12)
[2017-02-11] MEDS: Aspirin 81 MG TAB.CHEW PO SCH (08:12)
[2017-02-11] MEDS: Furosemide 20 MG/2 ML VIAL IVP SCH ×2 (08:12→21:24)
--- NOTE | 2017-02-11 15:13 | Internal Med Progress Note ---
Date of Encounter: 02/11/17 Time of Encounter: 13:45 - Assessment and plan (1) CAD (coronary artery disease) Current Visit: Yes Status: Acute Assessment and plan: s/p CABG-POD 11 s/p evacuation of mediastinal hematoma-POD 7 Clinical improving, in no respiratory distress Cardiothoracic surgery on board and consultation appreciated PT eval: SNF placement Patient was discharged to [facility] by Dr. Valle with discharge instructions further care as per cardiothoracic surgery Qualifiers: Coronary Disease-Associated Artery/Lesion type: [place] artery [place] vs. transplanted heart: [place] heart Associated angina: without angina Qualified Code(s): I25.10 - Atherosclerotic heart disease of [place] coronary artery without angina pectoris (2) Hypertension Current Visit: Yes Status: Acute Assessment and plan: BP within acceptable range continue current management Qualifiers: Hypertension type: essential hypertension Qualified Code(s): I10 - Essential (primary) hypertension (3) Lower extremity edema Current Visit: Yes Status: Acute Qualifiers: Laterality: left Qualified Code(s): R60.0 - Localized edema (4) Pulmonary edema Current Visit: Yes Status: Resolved Qualifiers: Chronicity: acute Qualified Code(s): J81.0 - Acute pulmonary edema (5) DVT prophylaxis Current Visit: Yes Status: Acute - Subjective Interval history: Patient is a 62y/o male with PMH of hypertension who is s/p CABG on 01/31 with post op complication of mediastinal hematoma. S/P evacuation of mediastinal hematoma-POD 6. Patient was transferred from the ICU on 02/08/17. Patient seen and examined, resting in chair. Reports of feeling better. No overnight issues reported. Patient was discharged by cardiothoracic surgery to [facility] today. patient to follow post op care and discharge plan as per cardiothoracic surgery. - Constitutional Vitals: Temp Pulse Resp BP Pulse Ox 99.0 F 84 18 109/54 94 02/11/17 11:17 02/11/17 11:28 02/11/17 11:17 02/11/17 11:28 02/11/17 07:13 General appearance: Present: cooperative, A&O X 3, pleasant, no acute distress, obese, answers questions appropriately - Head Head exam: Present: atraumatic, normocephalic - Eye Eye exam: Present: conjuntiva pink, sclera anicteric - Respiratory Respiratory exam: Present: CTAB. Absent: accessory muscle use, rales, rhonchi, wheezes - Cardiovascular Cardiovascular exam: Present: RRR, +S1, +S2. Absent: diastolic murmur, gallop, rubs, systolic murmur - GI/Abdominal GI/Abdominal exam: Present: normal bowel sounds, soft, no peritoneal signs. Absent: distended, tenderness - Extremities Exam Extremities exam: Present: pedal edema, warm, radial pulses palpable and symetrical - Neurological Exam Neurological exam: Present: alert, oriented X3 - Psychiatric Psychiatric exam: Present: normal affect, normal mood Internal Medicine: Result - Labs CBC & Chem 7: 02/10/17 04:45 02/11/17 03:21 Labs: BMP 02/11/17 03:21 Sodium 135 L Potassium 5.3 H D Chloride 101 Carbon Dioxide 25 BUN 29 H Creatinine 1.32 H Glucose 99 Calcium 8.7 - ABG Interpretation ABG results: ABG ABG pH 7.38 pH Units (7.32-7.45) 02/04/17 15:43 ABG pCO2 43 mmHg (35-45) 02/04/17 15:43 ABG pO2 57 mmHg (85-104) L 02/04/17 15:43 ABG O2 Saturation 89 % (95-98) L 02/04/17 15:43 PT/INR, D-dimer PT 12.4 Seconds (9.4-12.1) H 02/01/17 04:19 D-Dimer 1162 ng/mLFEU (0-500) H 01/26/17 09:14 - Impressions Impressions Chest X-Ray 02/11/17 06:00 IMPRESSION: Stable cardiomegaly. Low lung volumes. Mild pulmonary vascular congestion. Atelectasis at the left lung base, stable. Small left pleural effusion, stable. D/ / Ravindra Stewart MD / Ravindra Stewart MD Interpreting Provider: Ravindra Stewart MD - VTE Documentation of Mechanical Device: Intermittent pneumatic compression device Consult Discharge Plan - Plan Referrals: Mae Ken, LIQUOR RECTIFIER [Advanced Practice Nurse] - 02/14/17 10:30 am (located in [facility] #[phone] please give a days notice if you need to cancel appt Please expect a new pt packet in the mail to complete) Jarod Malhotra CNP [Advanced Practice Nurse] - 02/27/17 8:00 am Lopez Ascencio MD [Partnered Physician] - 02/28/17 1:15 pm Prescriptions: OxyCODONE/APAP 5/325 [Percocet 5/325 MG] 1 each PO Q4HR PRN #50 tablet PRN Reason: Severe Pain Atorvastatin [Lipitor] 40 mg PO HS #30 tablet Lisinopril [Zestril] 10 mg PO DAILY #30 tablet Metoprolol [Lopressor] 50 mg PO BID #60 tablet
[2017-02-12] MEDS: *HR* Heparin 5,000 UNIT/ML VIAL SQ SCH ×2 (06:19→14:28)
--- NOTE | 2017-02-12 07:19 | Cardiothoracic Progress Note ---
Date of Encounter: 02/12/17 Time of Encounter: 07:17 - Assessment and plan (1) CAD (coronary artery disease) Current Visit: Yes Status: Acute The patient continues to do well after his CABG2. He is awaiting insurance approval for transfer to rehabilitation. Hopefully this will occur today. The assessment and plan as outlined above was discussed with the patient and/or family members who expressed understanding and agreement. All questions were answered. Qualifiers: Coronary Disease-Associated Artery/Lesion type: [place] artery [place] vs. transplanted heart: [place] heart Associated angina: without angina Qualified Code(s): I25.10 - Atherosclerotic heart disease of [place] coronary artery without angina pectoris - Subjective Procedure(s) Performed: POD#11 S/P CABG2 POD#8 S/P Mediastinal exploration with evacuation of hematoma Interval history: The patient is resting comfortably in his hospital bed. He is breathing comfortably. Vital Signs, Last 4 Hours Temp Pulse Resp BP Pulse Ox 02/12/17 03:45 98.8 F 89 21 111/70 92 [place] Flow Rate Oxygen Flow Rate (LPM) 2 Weight 02/10/17 02/11/17 02/12/17 23:59 23:59 23:59 Weight 104.3 kg 103.4 kg 102.2 kg - Physical Examination General: Conversant Neck: No JVD, Normal carotid pulses Cardiac: Reg Rate and Rhythm, Normal S1 and S2, No Murmur Incision: No signs of infection, Dry/intact dressing Sternum: Stable Lungs: Normal Breath Sounds, No Wheeze, Rales, Rhonchi Neuro: Alert and responsive, No focal deficits noted Vascular: Normal capillary refill Musculoskeletal: No Chest Wall Tenderness Extremities: No Clubbing, No Cyanosis, No Edema - Labs 02/10/17 04:45 02/11/17 03:21 - VTE Documentation of Mechanical Device: Intermittent pneumatic compression device Consult Discharge Plan - Plan Referrals: Mae Ken CNP [Advanced Practice Nurse] - 02/14/17 10:30 am (located in [facility] #[phone] please give a days notice if you need to cancel appt Please expect a new pt packet in the mail to complete) Jarod Malhotra CNP [Advanced Practice Nurse] - 02/27/17 8:00 am Lopez Ascencio MD [Partnered Physician] - 02/28/17 1:15 pm Prescriptions: OxyCODONE/APAP 5/325 [Percocet 5/325 MG] 1 each PO Q4HR PRN #50 tablet PRN Reason: Severe Pain Atorvastatin [Lipitor] 40 mg PO HS #30 tablet Lisinopril [Zestril] 10 mg PO DAILY #30 tablet Metoprolol [Lopressor] 50 mg PO BID #60 tablet
[2017-02-12] MEDS: Aspirin 81 MG TAB.CHEW PO SCH (08:15)
[2017-02-12] MEDS: Furosemide 20 MG/2 ML VIAL IVP SCH (08:16)
[2017-02-12] MEDS: Chlorhexidine Rinse 15 ML MOUTHWASH MM SCH (08:16)
[2017-02-12] MEDS: Lisinopril 20 MG TABLET PO SCH (08:16)
[2017-02-12 11:38] LABS: Basophils # 0.1 K/mcL (0.0-0.2); Basophils % 0.5 %; Eosinophils # 0.9 K/mcL (0.0-0.6); Eosinophils % 6.9 %; Hematocrit 28.2 % (37.5-50.1); Hemoglobin 9.2 g/dL (12.9-16.9); Immature Granulocytes % 1.7 % (0-4); Immature Platelets 2.1 % (1.1-6.1); Lymphocytes # 1.4 K/mcL (0.6-4.6); Mean Corpuscular HGB Conc 32.6 g/dL (31.6-35.5); Mean Corpuscular Hemoglobin 29.6 pg (28.0-33.3); Mean Corpuscular Volume 90.7 fL (83.0-100.0); Mean Platelet Volume 8.9 fL (9.4-12.4); Monocytes # 1.6 K/mcL (0.0-1.3); Monocytes % 12.5 %; Neutrophils # 8.8 K/mcL (1.6-8.9); Platelet Count 618 K/mcL (140-400); Red Blood Count 3.11 M/mcL (4.19-5.50); Red Cell Distribution Width 14.2 % (11.5-14.5); Segmented Neutrophils % 67.4 %
[2017-02-12 11:49] LABS: BUN/Creatinine Ratio 23 (6-26); Blood Urea Nitrogen 28 mg/dL (8-26); Calcium 8.8 mg/dL (8.6-10.8); Carbon Dioxide 25 mEq/L (19-29); Chloride 101 mEq/L (98-109); Glucose 102 mg/dL (70-99); Osmolality,Calculated 286 (280-300); Sodium 135 mEq/L (136-145); eGFR For African Americans > 60 (> 60); eGFR For Non-African Americans > 60 (> 60)
[2017-02-12 11:55] LABS: Potassium 4.2 mEq/L (3.5-4.5)
[2017-02-12 15:20] VITALS: BP 104/61
--- NOTE | 2017-02-12 16:10 | Internal Med Progress Note ---
Date of Encounter: 02/12/17 Time of Encounter: 10:00 - Assessment and plan (1) CAD (coronary artery disease) Current Visit: Yes Status: Acute Assessment and plan: s/p CABG-POD 12 s/p evacuation of mediastinal hematoma-POD 7 Clinical improving, in no respiratory distress Cardiothoracic surgery on board and consultation appreciated PT eval: SNF placement Patient was discharged to [facility] by Dr. Valle with discharge instructions Waiting for placement and aids social worker is working on it. Patient is at high risk because he has medical problems need a surgical intervention. Qualifiers: Coronary Disease-Associated Artery/Lesion type: [place] artery [place] vs. transplanted heart: [place] heart Associated angina: without angina Qualified Code(s): I25.10 - Atherosclerotic heart disease of [place] coronary artery without angina pectoris (2) Congestive heart failure Current Visit: Yes Status: Acute Assessment and plan: New onset of systolic heart failure. Due to ischemia. Had CABG. Continue aspirin, beta aliza, statin, and LAURI inhibitor. Qualifiers: Congestive heart failure type: systolic Congestive heart failure chronicity : acute on chronic Qualified Code(s): I50.23 - Acute on chronic systolic ( congestive) heart failure (3) DVT prophylaxis Current Visit: Yes Status: Acute Assessment and plan: Heparin SQ (4) Hypertension Current Visit: Yes Status: Acute Assessment and plan: BP within acceptable range continue current management Qualifiers: Hypertension type: essential hypertension Qualified Code(s): I10 - Essential (primary) hypertension - Time Spent With Patient Greater than 35 minutes - Subjective Interval history: Patient is a 62-year-old male admitted for shortness of breath. Patient was found CAD by catheterization, he did CABG surgery. Past medical history is significant for CHF and hypertension. I saw and examined the patient today. Patient denies chest pain or shortness of breath. Vitals are stable. Waiting for rehabilitation discharge. 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 - Constitutional Vitals: Temp Pulse Resp BP Pulse Ox 98.4 F 91 22 104/61 98 02/12/17 15:18 02/12/17 15:18 02/12/17 15:18 02/12/17 15:18 02/12/17 15:18 General appearance: Present: cooperative, A&O X 3, pleasant, no acute distress, obese, answers questions appropriately - Head Head exam: Present: atraumatic, normocephalic - Eye Eye exam: Present: PERRL, conjuntiva pink, sclera anicteric Pupils: Present: PERRL - Neck Neck exam general surgery: Present: supple, trachea midline. Absent: lymphadenopathy - Respiratory Respiratory exam: Present: CTAB. Absent: accessory muscle use, rales, rhonchi, wheezes - Cardiovascular Cardiovascular exam: Present: RRR, +S1, +S2. Absent: diastolic murmur, gallop, rubs, systolic murmur - GI/Abdominal GI/Abdominal exam: Present: normal bowel sounds, soft, no peritoneal signs. Absent: distended, tenderness - Extremities Exam Extremities exam: Present: warm, radial pulses palpable and symetrical. Absent : calf tenderness, cyanotic, pedal edema - Neurological Exam Neurological exam: Present: CN II-XII intact, oriented X3, no focal deficits. Absent: pronater drift, facial droop, speech deficit - Skin Skin exam: Present: dry, intact Internal Medicine: Result - Labs CBC & Chem 7: 02/12/17 11:29 02/12/17 11:29 Labs: Short CBC 02/12/17 Range/Units 11:29 WBC 13.0 H (4.3-11.1) K/mcL Hgb 9.2 L (12.9-16.9) g/dL Hct 28.2 L (37.5-50.1) % Plt Count 618 H (140-400) K/mcL Neutrophils # 8.8 (1.6-8.9) K/mcL BMP 02/12/17 11:29 Sodium 135 L Potassium 4.2 D Chloride 101 Carbon Dioxide 25 BUN 28 H Creatinine 1.22 Glucose 102 H Calcium 8.8 - ABG Interpretation ABG results: ABG ABG pH 7.38 pH Units (7.32-7.45) 02/04/17 15:43 ABG pCO2 43 mmHg (35-45) 02/04/17 15:43 ABG pO2 57 mmHg (85-104) L 02/04/17 15:43 ABG O2 Saturation 89 % (95-98) L 02/04/17 15:43 PT/INR, D-dimer PT 12.4 Seconds (9.4-12.1) H 02/01/17 04:19 D-Dimer 1162 ng/mLFEU (0-500) H 01/26/17 09:14 - VTE Documentation of Mechanical Device: Intermittent pneumatic compression device Consult Discharge Plan - Plan Instructions: Metoprolol (By mouth), Lisinopril (By mouth), Hydrocodone/ Acetaminophen (By mouth), Atorvastatin (By mouth), Coronary Artery Bypass Graft (DC), Heart Healthy Diet (DC) Referrals: Mae Ken CNP [Advanced Practice Nurse] - 02/14/17 10:30 am () Jarod Malhotra CNP [Advanced Practice Nurse] - 02/27/17 8:00 am Lopez Ascencio MD [Partnered Physician] - 02/28/17 1:15 pm Prescriptions: OxyCODONE/APAP 5/325 [Percocet 5/325 MG] 1 each PO Q4HR PRN #50 tablet PRN Reason: Severe Pain Atorvastatin [Lipitor] 40 mg PO HS #30 tablet Lisinopril [Zestril] 10 mg PO DAILY #30 tablet Metoprolol [Lopressor] 50 mg PO BID #60 tablet
== END 2017-02-12 17:20 | DRG 233 ==
LOC: EMEROO 08:54 → 2NENU 08:54 → SUATTDRO 17:43 → 2NENU 01-31 09:18 → ICNU 01-31 10:33 → 2NNU 02-02 11:36 → ICNU 02-04 14:55 → 2NNU 02-08 14:23
PROVIDERS: ADMIT Nurse Practitioner Acute Care; ATTEND Internal Medicine